=== PATIENT | male | born 1960 | race Caucasian/White ===

== ENCOUNTER 2023-06-30 09:11 | Outpatient (OUT) | payer OTHER, SELFPAY ==
[2023-06-30 10:38] LABS: Estimated Average Glucose 103 mg/dL; Glycohemoglobin A1C 5.2 % (4.5-6.2)
[2023-06-30 10:44] LABS: Alanine Aminotransferase 31 U/L (16-63); Albumin Globulin Ratio 1.1; Alkaline Phosphatase 65 U/L (46-116); Anion Gap 9.2; Aspartate Amino Transferase 18 U/L (15-37); BUN Creatinine Ratio 17.2; Bilirubin Total 0.9 mg/dL (0.2-1.0); Calcium 9.4 mg/dL (8.5-10.1); Carbon Dioxide 31.6 mmol/L (21.0-32.0); Chloride 104 mmol/L (98-107); Chol HDL Ratio 2.8; Cholesterol 128 mg/dL (<=200); Estimated GFR (African America >60 (>=60); Estimated GFR (Non-African Ame >60 (>=60); Globulin 3.7 g/dL; Glucose 107 mg/dL (74-106); HDL Cholesterol 46 mg/dL (40-60); Potassium 3.8 mmol/L (3.5-5.1); Sodium 141 mmol/L (136-145); Total Protein 7.7 g/dL (6.4-8.2); Triglycerides 160 mg/dL (<=150)
[2023-06-30 10:56] LABS: Prostate Specific Antigen Scrn 3.51 ng/mL (<=4.00)
[2023-06-30 11:16] LABS: Basophils Percent Auto 0.6 % (0.2-2.0); Eosinophils Absolute Auto 0.2 10^3/uL (0.0-0.7); Eosinophils Percent Auto 2.4 % (0.9-7.0); Hematocrit 40.9 % (42.0-54.0); Hemoglobin 14.3 g/dL (14.0-18.0); Immature Granulocytes Abs Auto 0.01 10^3/uL (0.00-0.03); Immature Granulocytes Pct Auto 0.1 % (0.0-0.5); Lymphocytes Absolute Auto 2.1 10^3/uL (1.2-3.8); Lymphocytes Percent Auto 31.4 % (20.5-60.0); Mean Corpuscular Hemoglobin 31.7 pg (25.9-34.0); Mean Corpuscular Volume 90.7 fL (80.0-94.0); Mean Platelet Volume 10.4 fL (9.5-13.5); Monocytes Absolute Auto 0.6 10^3/uL (0.3-0.8); Monocytes Percent Auto 8.5 % (1.7-12.0); Neutrophils Absolute Auto 3.9 10^3/uL (1.4-6.5); Platelet Count 201 10^3/uL (150-450); Red Blood Count 4.51 10^6/uL (4.70-6.10); Red Cell Distribution Width 12.2 % (11.0-15.0); White Blood Count 6.8 10^3/uL (4.0-11.0)
== END 2023-06-30 09:12 | disposition home or self-care (01) ==
LOC: LAB 09:14
PROVIDERS: PCP Internal Medicine; Visit Provider Internal Medicine
DX: Z00.00 Encounter for general adult medical examination without abnormal findings (principal); Z12.5 Encounter for screening for malignant neoplasm of prostate
CPT/HCPCS: 36415; 80053; 80061; 83036; 85025; G0103

== ENCOUNTER 2024-06-26 08:38 | Outpatient (OUT) | payer OTHER, SELFPAY ==
--- OUTSIDE RECORDS SUMMARY | 2024-06-26 08:43 | XMS_ITS | CCD ---
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 Role Phone KASEY, DR MOLINA Primary Care Unavailable KASEY, DR MOLINA Admitting Unavailable KASEY, DR MOLINA Attending Unavailable KASEY, DR MOLINA Consulting Unavailable Shraddha, DR Persaud Consulting Unavailable KASEY, DR MOLINA Consulting Unavailable KASEY, DR MOLINA Primary Care Unavailable KASEY, DR MOLINA Admitting Unavailable KASEY, DR MOLINA Attending Unavailable Kasey, Jose Unavailable Allergies Allergy Classification Reported Allergen(s) Allergy Type Date of Onset Reaction(s) Facility (3 sources) Acetaminophen Drug Allergy 4 Unknown, Unknown Reaction [facility] (3 sources) azaTHIOprine Drug Allergy 4 Unknown, Unknown Reaction [facility] Medications Current Medications Medication Drug Class(es) Dates Sig (Normalized) Sig (Original) atorvastatin 10 mg oral tablet (4 sources) HMG-CoA Reductase Inhibitor Start: 12-27-2023 take 10 mg by mouth once daily Atorvastatin Active 10 MG PO Daily December 27, 2023 12:00am Start: 12-30-2022 take 1 tablet by svetlana th every twenty-four hours Atorvastatin Calcium 10 MG 1 tablet Orally Once a day for 30 days Dec, Active hydroCHLOROthiazide 25 mg / lisinopril 20 mg oral tablet (4 sources) Thiazide Diuretic, Angiotensin Converting Enzyme Inhibitor Start: 12-27-2023 take 1 tablet by mouth once daily Lisinopril-Hydrochlorothiazide Active 1 TAB PO Daily December 27, 2023 12:00am Start: 12-30-2022 take 1 tablet by svetlana th every twenty-four hours Lisinopril-hydroCHLOROthiazide 20-25 MG 1 tablet Orally Once a day for 30 days Dec, Active lisinopril 10 mg oral tablet (4 sources) Angiotensin Converting Enzyme Inhibitor Start: 12-27-2023 take 10 mg by mouth once daily Lisinopril Active 10 MG PO Daily December 27, 2023 12:00am Start: 12-30-2022 take 1 tablet by svetlana th every twenty-four hours Lisinopril 10 MG 1 tablet Orally Once a day for 30 days Dec, Active Completed/Discontinued Medications Medication Drug Class(es) Dates Sig (Normalized) Sig (Original) Suprep Bowel Prep Kit 17.5-3.13-1.6 GM/180ML (3 sources) Start: 10-12-2018 take 177 mL by mouth twice daily Suprep Bowel Prep Kit 17.5-3.13-1.6 GM/180ML 177ml bottle at 4pm and 11pm Orally Twice a day for 1 day(s) Oct, Not-Taking Start: 10-12-2018 take 177 mL by mouth twice daily Suprep Bowel Prep Kit 17.5-3.13-1.6 GM/180ML 177ml bottle at 4pm and 11pm Orally Twice a day for 1 day(s) Oct, Active Problems Active Problems Problem Classification Problem Date Documented Date Episodic/Chronic Diabetes mellitus without complication (7 sources) Impaired fasting glycemia; Translations: [Impaired fasting glucose] Episodic Disorders of lipid metabolism (7 sources) Hypercholesterolemia ; Translations: [Pure hypercholesterolemia , unspecified] Chronic Esophageal disorders (5 sources) Gastro-esophageal reflux disease with esophagitis; Translations: [Gastroesophageal reflux disease with esophagitis without hemorrhage] 12-27-2023 Chronic Essential hypertension (7 sources) Essential hypertension; Translations: [Essential (primary) hypertension] Chronic Genitourinary symptoms and ill-defined conditions (5 sources) Delay when starting to pass urine; Translations: [Hesitancy of micturition] Episodic Hyperplasia of prostate (7 sources) Lower urinary tract symptoms due to benign prostatic hypertrophy; Translations: [Benign prostatic hyperplasia with lower urinary tract symptoms] Chronic Nonmalignant breast conditions (7 sources) Hypertrophy of breast; Translations: [Gynecomastia] Onset: 11-30-2021 Episodic Other diseases of veins and lymphatics (4 sources) Peripheral venous insufficiency; Translations: [Venous insufficiency (chronic) (peripheral)] 12-27-2023 Episodic Other diseases of veins and lymphatics (3 sources) Venous insufficiency (chronic) (peripheral); Translations: [Venous (peripheral) insufficiency, unspecified] Episodic Other screening for suspected conditions (not mental disorders or infectious disease) (3 sources) Encounter for screening for malignant neoplasm of prostate; Translations: [Encounter for screening for malignant neoplasm of colon] Onset: 06-29-2022 Episodic Sprains and strains (1 source) Strain of muscle(s) and tendon(s) of the rotator cuff of right shoulder, initial encounter Episodic Past or Other Problems Problem Classification Problem Date Documented Da te Episodic/Chronic Esophageal disorders (2 sources) Esophageal disorders Results Test Name Value Interpretation Reference Range Facility [facility] Pane karl 06-30-2023 Albumin [Mass/Vol] 4.385137 g/dL Normal 3.4-5.0 g/dL [facility] [employer] Other ALP [Catalytic activity/Vol] 65 U/L Normal 46-116 U/L [facility] [employer] Other ALT [Catalytic activity/Vol] 31 U/L Normal 16-63 U/L [facility] Other Anion gap [Moles/Vol] 9.2 mmol/L [facility] Other AST [Catalytic activity/Vol] 18 U/L Normal 15-37 U/L [facility] Other Bilirubin [Mass/Vol] 0.9975972 mg/dL Normal 0.2-1.0 mg/dL [facility] Other Calcium [Mass/Vol] 9.3906777 mg/dL Normal 8.5-10.1 mg/ dL [facility] Other Chloride [Moles/Vol] 104 mmol/L Normal 98-107 mmol/L [facility] Other CO2 [Moles/Vol] 31.71757501 mmol/L Normal 21.0-3 2.0 mmol/L [facility] Other Creatinine [Mass/Vol] 0.24686544 mg/dL Normal 0.70-1.30 mg/dL [facility] Other Glucose [Mass/Vol] 107 mg/dL High 74-106 mg/dL [facility] [employer] Other Potassium [Moles/Vol] 3.06190766 mmol/L Normal 3.5-5.1 mmol/L [facility] [employer] Other Protein [Mass/Vol] 7.835861 g/dL Normal 6.4-8.2 g/dL N [facility] [employer] Other Sodium [Moles/Vol] 141 mmol/L Normal 136-145 mmol/L [facility] [employer] Other Urea nitrogen [Mass/Vol] 17.7999274 mg/dL Normal 7.0-18.0 mg/dL [facility] [employer] Other Urea nitrogen/Creatinine [Mass ratio] 17.2 mg/mg [facility] [employer] Other Comprehensive Metabolic Panel 3.7 g/dL [facility] [employer] Other Comprehensive Metabolic Panel 1.1 [facility] [employer] Other Comprehensive Metabolic Panel see note [facility] [employer] Other Comprehensive Metabolic Panel >60 >=60 [facility] [employer] Other Lipid Panelon 06-30-2023 Cholesterol [Mass/Vol] 128 mg/dL <=200 mg/dL [facility] [employer] Other Cholesterol in HDL [Mass/Vol] 46 mg/dL Normal 40-60 mg/dL [facility] [employer] Other Triglyceride [Mass/Vol] 160 mg/dL High <=150 mg/dL [facility] [employer] Other Lipid Panel 50.0 mg/dL [facility] [employer] Other Lipid Panel 32.0 mg/dL [facility] [employer] Other Lipid Panel 2.8 [facility] [employer] Other PSA SCREENINGon 06-30-2023 PSA SCREENING 3.51 ng/mL <=4.00 ng/mL [facility] [employer] Other CBC AUTO DIFFon 06-24-2022 BASO # 0.1 103/ul Normal 0.0-0.1 [facility] Comment on above: Performed By: #### C BC #### [facility] [address] [address] [address] Julia Gonzalez Basophils/100 WBC (Bld) 0.7 % Normal 0.2-2.0 [facility] Comment on above: Performed By: #### C BC #### [facility] [address] [address] [address] Julia Gonzalez EO # 0.2 103/ul Normal 0.0-0.7 [facility] Comment on above: Performed By: #### C BC #### [facility] [address] [address] [address] Julia Gonzalez Eosinophils/100 WBC (Bld) 2.9 % Normal 0.9-7.0 [facility] Comment on above: Performed By: #### C BC #### [facility] [address] [place] [address] Dr. Julia Gonzalez Erythrocyte distribution width (RBC) [Ratio] 12.6 % Normal 11.0-15.0 [facility] Comment on above: Performed By: #### C BC #### [facility] [address] [place] [address] Dr. Julia Gonzalez Hematocrit (Bld) [Volume fraction] 41.7 % Critically low 42.0-54.0 [facility] Comment on above: Performed By: #### C BC #### [facility] [address] [place] [address] Dr. Julia Gonzalez Hemoglobin (Bld) [Mass/Vol] 14.4 g/dL Normal 14.0-18.0 [facility] Comment on above: Performed By: #### C BC #### [facility] [address] [place] [address] Dr. Julia Gonzalez IG # 0.02 10e3/ul Normal 0.00-0.03 [facility] Comment on above: Performed By: #### C BC #### [facility] [address] [place] [address] Dr. Julia Gonzalez IG % 0.3 % Normal 0.0-0.5 [facility] Comment on above: Performed By: #### C BC #### [facility] [address] [place] [address] Dr. Julia Gonzalez LYMPH # 2.2 103/ul Normal 1.2-3.8 [facility] Comment on above: Performed By: #### C BC #### [facility] [address] [place] [address] Dr. Julia Gonzalez Lymphocytes/100 WBC (Bld) 31.2 % Normal 20.5-60.0 [facility] Comment on above: Performed By: #### C BC #### [facility] [address] [place] [address] Dr. Julia Gonzalez MANUAL DIFF REQ NO Normal [facility] Comment on above: Performed By: #### C BC #### [facility] [address] [place] [address] Dr. Julia Gonzalez MCH (RBC) [Entitic mass] 31.0 pg Normal 25.9-34.0 [facility] Comment on above: Performed By: #### C BC #### [facility] [address] [place] [address] Dr. Julia Gonzalez MCHC (RBC) [Mass/Vol] 34.5 g/dL Normal 29.9-35.2 [facility] Comment on above: Performed By: #### C BC #### [facility] [address] [place] [address] Dr. Julia Gonzalez MCV (RBC) [Entitic vol] 89.7 fL Normal 80.0-94.0 [facility] Comment on above: Performed By: #### C BC #### [facility] [address] [place] [address] Dr. Julia Gonzalez MONO # 0.6 103/ul Normal 0.3-0.8 [facility] Comment on above: Performed By: #### C BC #### [facility] [address] [place] [address] Dr. Julia Gonzalez Monocytes/100 WBC (Bld) 9.0 % Normal 1.7-12.0 [facility] Comment on above: Performed By: #### C BC #### [facility] [address] [place] [address] Dr. Julia Gonzalez NEUT # 3.9 103/ul Normal 1.4-6.5 [facility] Comment on above: Performed By: #### C BC #### [facility] [address] [address] [address] Julia Gonzalez Neutrophils/100 WBC (Bld) 55.9 % Normal 43.0-75.0 [facility] Comment on above: Performed By: #### C BC #### [facility] [address] [place] [address] Dr. Julia Gonzalez Platelet mean volume (Bld) [Entitic vol] 9.6 fL Normal 9.5-13.5 [facility] Comment on above: Performed By: #### C BC #### [facility] [address] [place] [address] Dr. Julia Gonzalez PLT 198 103/ul Normal 150-450 [facility] Comment on above: Performed By: #### C BC #### [facility] [address] [place] [address] Dr. Julia Gonzalez RBC 4.65 106/ul Critically low 4.70-6.10 [facility] Comment on above: Performed By: #### C BC #### [facility] [address] [place] [address] Dr. Julia Gonzalez WBC 6.9 103/ul Normal 4.0-11.0 [facility] Comment on above: Performed By: #### C BC #### [facility] [address] [place] [address] Dr. Julia Gonzalez LIPID PROFILEon 06-24-2022 CHOL-HDL RATIO NORM SEE BELOW Normal [facility] Comment on above: Result Comment: 3.3 - 4.4 LOW RISK 4.4 - 7.1 AVERAGE RISK 7.1 - 11.0 MODERATE RISK >11.0 HIGH RISK Performed By: #### C MP, LIPID #### [facility] [address] [place] [address] Dr. Julia Gonzalez Cholesterol [Mass/Vol] 138 mg/dL Normal <=200 [facility] Comment on above: Performed By: #### C MP, LIPID #### [facility] [address] [address] [address] Julia Gonzalez Cholesterol in HDL [Mass/Vol] 48 mg/dL Normal 40-60 [facility] Comment on above: Performed By: #### C MP, LIPID #### [facility] [address] [address] [address] Julia Gonzalez Cholesterol in LDL [Mass/Vol] 66.6 mg/dL Normal [facility] Comment on above: Performed By: #### C MP, LIPID #### [facility] [address] [address] [address] Julia Gonzalez Cholesterol.total/C holesterol in HDL [Mass ratio] 2.9 {ratio} Normal [facility] Comment on above: Performed By: #### C MP, LIPID #### [facility] [address] [place] [address] Dr. Julia Gonzalez HDL NORMAL > or = 60 mg/dl - LOW CARDIOVASCULAR RISK <40 mg/dl - HIGH CARDIOVASCULAR RISK Normal [facility] Comment on above: Performed By: #### C MP, LIPID #### [facility] [address] [address] [address] Julia Gonzalez LDL CALC NORMAL SEE BELOW Normal [facility] Comment on above: Result Comment: <100 mg/dl OPTIMAL 100 - 129 mg/dl NEAR OR ABOVE OPTIMAL 130 - 159 mg/dl BORDERLINE HIGH 160 - 189 mg/dl HIGH >190 mg/dl VERY HIGH Performed By: #### C MP, LIPID #### [facility] [address] [address] [address] Julia Gonzalez Triglyceride [Mass/Vol] 117 mg/dL Normal <=150 [facility] Comment on above: Performed By: #### C MP, LIPID #### [facility] [address] [place] [address] Dr. Julia Gonzalez VLDL CALC 23.4 mg/dL Normal [facility] Comment on above: Performed By: #### C MP, LIPID #### [facility] [address] [address] [address] Julia Gonzalez PROF 14(COMP METB)on 10-21-2 022 Albumin [Mass/Vol] 4.0 g/dL Normal 3.4-5.0 [facility] Comment on above: Performed By: #### C MP, LIPID #### [facility] [address] [place] [address] Dr. Julia Gonzalez Albumin/Globulin [Mass ratio] 1.1 {ratio} Normal [facility] Comment on above: Performed By: #### C MP, LIPID #### [facility] [address] [place] [address] Dr. Julia Gonzalez ALP [Catalytic activity/Vol] 64 U/L Normal 46-116 [facility] Comment on above: Performed By: #### C MP, LIPID #### [facility] [address] [place] [address] Dr. Julia Gonzalez ALT [Catalytic activity/Vol] 29 U/L Normal 16-63 [facility] Comment on above: Performed By: #### C MP, LIPID #### [facility] [address] [place] [address] Dr. Julia Gonzalez Anion gap [Moles/Vol] 9.1 mmol/L Normal [facility] Comment on above: Performed By: #### C MP, LIPID #### [facility] [address] [place] [address] Dr. Julia Gonzalez AST [Catalytic activity/Vol] 19 U/L Normal 15-37 [facility] Comment on above: Performed By: #### C MP, LIPID #### [facility] [address] [place] [address] Dr. Julia Gonzalez Bilirubin [Mass/Vol] 0.6 mg/dL Normal 0.2-1.0 [facility] Comment on above: Performed By: #### C MP, LIPID #### [facility] [address] [place] [address] Dr. Julia Gonzalez Calcium [Mass/Vol] 9.4 mg/dL Normal 8.5-10.1 [facility] Comment on above: Performed By: #### C MP, LIPID #### [facility] [address] [place] [address] Dr. Julia Gonzalez Chloride [Moles/Vol] 105 mmol/L Normal 98-107 [facility] Comment on above: Performed By: #### C MP, LIPID #### [facility] [address] [place] [address] Dr. Julia Gonzalez CO2 [Moles/Vol] 30.2 mmol/L Normal 21.0-32.[address] [facility] Comment on above: Performed By: #### C MP, LIPID #### [facility] [address] [place] [address] Dr. uJlia Gonzalez Creatinine [Mass/Vol] 0.91 mg/dL Normal 0.70-1.30 [facility] Comment on above: Performed By: #### C MP, LIPID #### [facility] [address] [place] [address] Dr. Julia Gonzalez EGFR-AF COMORAN >60 Normal >=[address] [facility] Comment on above: Performed By: #### C MP, LIPID #### [facility] [address] [place] [address] Dr. Julia Gonzalez EGFR-NON AF COMORAN >60 Normal >=60 [facility] Comment on above: Performed By: #### C MP, LIPID #### [facility] [address] [place] [address] Dr. Julia Gonzalez Globulin (S) [Mass/Vol] 3.7 g/dL Normal [facility] Comment on above: Performed By: #### C MP, LIPID #### [facility] [address] [place] [address] Dr. Julia Gonzalez Glucose [Mass/Vol] 113 mg/dL Critically high 74-106 [facility] Comment on above: Performed By: #### C MP, LIPID #### [facility] [address] [place] [address] Dr. Julia Gonzalez Potassium [Moles/Vol] 4.3 mmol/L Normal 3.5-5.1 [facility] Comment on above: Performed By: #### C MP, LIPID #### [facility] [address] [place] [address] Dr. Julia Gonzalez Protein [Mass/Vol] 7.7 g/dL Normal 6.4-8.2 [facility] Comment on above: Performed By: #### C MP, LIPID #### [facility] [address] [address] [address] Julia Gonzalez Sodium [Moles/Vol] 140 mmol/L Normal 136-145 [facility] Comment on above: Performed By: #### C MP, LIPID #### [facility] [address] [address] [address] Julia Gonzalez Urea nitrogen [Mass/Vol] 20.0 mg/dL Critically high 7.0-18.0 [facility] Comment on above: Performed By: #### C MP, LIPID #### [facility] [address] [address] [address] Julia Gonzalez Urea nitrogen/Creatinine [Mass ratio] 22.0 mg/mg Normal [facility] Comment on above: Performed By: #### C MP, LIPID #### [facility] [address] [place] [address] Dr. Julia Gonzalez MG MAMM DIAGNOSTIC 3D SONIYA CA Don 11-30-2021 MG MAMM DIAGNOSTIC 3D SONIYA CAD Patient: GWEN MCBRIDE Exam Date: 11/30/2021 : 1960 Gender:M Ordering : DR JOSE PARKS D.O. Admission #: [id number] Family : Order #: [id number] CLICK HERE TO VIEW EXAM RADIOLOGY REPORT PROCEDURE: MAMMOGRAM DIAGNOSTIC 3D BILATERAL CAD, 11/30/2021, 14:04 ULTRASOUND BREAST LEFT LIMITED, 11/30/2021, 14:42 COMPARISON: None. INDICATIONS: Hypertrophy of breast Calculator Name NCI Breast Cancer Risk Assessment Tool 5 Year Breast Cancer Risk Not Applicable. Lifetime Breast Cancer Risk Not Applicable. Personal Breast Cancer No Personal Ovarian Cancer No Treatments None Family Cancers Brother with throat cancer at age 67; Brother with neck cancer at age 67. LOCATION: [facility] BREAST COMPOSITION: Almost entirely fatty. FINDINGS: DIAGNOSTIC CATEGORY 2--BENIGN FINDING: RIGHT BREAST: No significant suspicious finding. LEFT BREAST: Small amount of strandy opacities within the subareolar region suggestive of gynecomastia. No appreciable mass. Ultrasound evaluation demonstrates findings consistent with unilateral gynecomastia. RECOMMENDATIONS: CLINICAL EVALUATION. PLEASE NOTE: A NORMAL MAMMOGRAM DOES NOT EXCLUDE THE POSSIBILITY OF BREAST CANCER. A CLINICALLY SUSPICIOUS PALPABLE LUMP SHOULD BE BIOPSIED. Dictated by: Hung Llanes M.D. on 11/30/2021 at 15:29 Approved by: Hung Llanes M.D. on 11/30/2021 at 15:34 Normal [facility] US BREAST LEFT LIMITEDon US BREAST LEFT LIMITED Patient: GWEN MCBRIDE Exam Date: 11/30/2021 : 1960 Gender:M Ordering : DR JOSE PARKS D.O. Admission #: [id number] Family : Order #: [id number] CLICK HERE TO VIEW EXAM RADIOLOGY REPORT PROCEDURE: MAMMOGRAM DIAGNOSTIC 3D BILATERAL CAD, 11/30/2021, 14:04 ULTRASOUND BREAST LEFT LIMITED, 11/30/2021, 14:42 COMPARISON: None. INDICATIONS: Hypertrophy of breast Calculator Name NCI Breast Cancer Risk Assessment Tool 5 Year Breast Cancer Risk Not Applicable. Lifetime Breast Cancer Risk Not Applicable. Personal Breast Cancer No Personal Ovarian Cancer No Treatments None Family Cancers Brother with throat cancer at age 67; Brother with neck cancer at age 67. LOCATION: [facility] BREAST COMPOSITION: Almost entirely fatty. FINDINGS: DIAGNOSTIC CATEGORY 2--BENIGN FINDING: RIGHT BREAST: No significant suspicious finding. LEFT BREAST: Small amount of strandy opacities within the subareolar region suggestive of gynecomastia. No appreciable mass. Ultrasound evaluation demonstrates findings consistent with unilateral gynecomastia. RECOMMENDATIONS: CLINICAL EVALUATION. PLEASE NOTE: A NORMAL MAMMOGRAM DOES NOT EXCLUDE THE POSSIBILITY OF BREAST CANCER. A CLINICALLY SUSPICIOUS PALPABLE LUMP SHOULD BE BIOPSIED. Dictated by: Hung Llanes M.D. on 11/30/2021 at 15:29 Approved by: Hung Llanes M.D. on 11/30/2021 at 15:34 Normal [facility] Vital Signs Date Time Vital Sign Value Performing Clinician Facility 12-29-2023 09:12-0400 Body height 170.[address] [facility] 12-29-2023 09:12-0400 Body mass index (BMI) [Ratio] 37.1 kg/m2 [facility] 12-29-2023 09:120400 Body weight 107.[address] [facility] 12-29-2023 09:12-0400 Diastolic blood pressure 88 mm[Hg] [facility] 12-29-2023 09:12-0400 Heart rate 78 /min [facility] 12-29-2023 09:12-0400 Systolic blood pressure 130 mm[Hg] [facility] 06-30-2023 08:30-0400 Body height 170.18 cm Jose Ball Other [facility] [employer] Other 06-30-2023 08:30-0400 Body mass index (BMI) [Ratio] 36.68 kg/m2 Jose Ball Other [facility] Other 06-30-2023 08:30-0400 Body weight 106.23 kg Jose Ball Other [facility] Other 06-30-2023 08:30-0400 Diastolic blood pressure 93 mm[Hg] Jose Ball Other [facility] Other 06-30-2023 08:30-0400 Respiratory rate 12 /min Jose Ball Other [employer] Other 06-30-2023 08:30-0400 Systolic blood pressure 166 mm[Hg] Jose Ball Other [facility] Other 12-30-2022 12:00-0400 Body height 170.18 cm Jose Ball Other [facility] Other 12-30-2022 12:00-0400 Body mass index (BMI) [Ratio] 37.02 kg/m2 Jose Ball Other [facility] Other 12-30-2022 12:00-0400 Body weight 107.23 kg Jose Ball Other [facility] Other 04-28-2023 12:00-0400 Diastolic blood pressure 96 mm[Hg] Jose Parks Other [facility] Other 12-30-2022 12:00-0400 Respiratory rate 12 /min Jose Parks Other [facility] Other 12-30-2022 12:00-0400 Systolic blood pressure 141 mm[Hg] Jose Parks Other [employer] Other Encounters Encounter Date Encounter Type Care Provider Facility Start: 12-29-2023 End: 12-29-2023 ambulatory [facility] Work Phone: Start: 12-29-2023 End: 12-29-2023 Patient encounter procedure [facility] Work Phone: Start: 06-30-2023 End: 06-30-2023 ambulatory Jose Parks Other [employer] Other Start: 06-30-2023 Encounter for genera l adult medical examination without abnormal findings Jose Parks [facility] Start: 06-30-2023 Periodic preventive med est patient 40-64yrs Jose Parks [facility] Start: 06-30-2023 Telephone encounter Jose Parks [facility] Start: 12-30-2022 End: 12-30-2022 ambulatory Jose Parks Other [email or web address] Other Start: 12-30-2022 Office outpatient vi sit 25 minutes Jose Parks [facility] Start: 06-29-2022 Encounter for genera l adult medical examination without abnormal findings DR JOSE PARKS [facility] Start: 06-24-2022 End: 06-25-[address] JOSE PARKS Facility:[facility] Start: 06-24-2022 End: 06-25-2022 Encounter for general adult medical examination without abnormal findings DR JOSE PARKS Facility:[facility] Start: 11-30-2021 End: 12-01-[address] JOSE PARKS Facility:[facility] Procedures Date Procedure Procedure Detail Performing Clinician Start: 10-21-[address] KENNA PARKS Comment on above: Performed By: #### P [facility] #### [facility] [address] [address] [address] Julia Gonzalez Immunizations Immunization Date Immunization Notes Care Provider Fa cili 06-30-2023 influenza, injectabl e, quadrivalent, preservative free Jose Parks Other [facility] 06-29-2022 influenza virus vaccine, split virus (incl. purified surface antigen) Jose Parks Other [facility] [employer] Other 06-29-2022 influenza virus vaccine, unspecified formulation [facility] 12-24-2021 COVID-19 Vaccine Moderna - Documentation Purposes Only Jose Parks Other [facility] 07-09-2021 COVID-19 Vaccine Moderna - Documentation Purposes Only Jose Parks Other [facility] 06-28-2021 influenza virus vaccine, split virus (incl. purified surface antigen) Jose Parks Other [facility] [employer] Other 06-28-2021 influenza virus vaccine, unspecified formulation [facility] 12-17-2020 COVID-19 Vaccine Moderna - Documentation Purposes Only Jose Parks Other [facility] 11-17-2020 COVID-19 Vaccine Moderna - Documentation Purposes Only Jose Parks Other [facility] 05-23-2017 tetanus and diphther ia toxoids, adsorbed, preservative free, for adult use (5 Lf of tetanus toxoid and 2 Lf of diphtheria toxoid) Jose Parks Other [facility] 06-03-2016 tetanus and diphther ia toxoids, adsorbed, preservative free, for adult use (5 Lf of tetanus toxoid and 2 Lf of diphtheria toxoid) Jose Parks Other [facility] Payers Date Payer Category Payer Unknown [id number] 1960 Unknown [id number] 1959 Unknown [id number] Unknown [id number] Social History Date Type Detail Facility Sex Assigned At [facility] [employer] Other Start: 1960 Sex Assigned At Male [facility] Evaluation note 06-30-2023 Note Date & Type Note Facility 06-30-2023 Evaluation note Encounter Date Diagnosis Assessment Notes Jun, Wellness examination (ICD-10 - Z00.00) Healthy diet and exercise. Reviewed age-appropriate preventive testing recommended. Jun, Primary hypertension (ICD-10 - I10) This patient is instructed to consume a healthy, low-fat, low-salt diet. They are also encouraged to continue exercise to achieve/maintain a normal BMI. Patient is instructed on home BP measurements: - rest for 5 minutes w/o talking- positioned w/ feet on floor and arm supported- average best 2/3 readings w/ goal < 135/85 Call w/ update Jun, Elevated cholesterol (ICD-10 - E78.00) Instructed on diet and exercise with continued statin therapy.Discussed the beneficial effects of lowering cholesterol in reducing the risk for cerebrovascular and cardiovascular disease. Jun, IFG (impaired fasting glucose) (ICD-10 - R73.01) Healthy diet and exercise Check A1C yearly Jun, Gastroesophageal reflux disease with esophagitis without hemorrhage (ICD-10 - K21.00) Diet instructions: Smaller portions, avoid eating and laying flat, avoid eating or drinking prior to bedtime. Weight loss. Jun, Benign prostatic hyperplasia with lower urinary tract symptoms (ICD-10 - N40.1) Symptoms tolerable Jun, Hesitancy of micturition (ICD-10 - R39.11) Jun, Chronic venous insufficiency (ICD-10 - I87.2) Avoid salt and elevate lower extremities, support stockings, inspect legs and feet daily for blisters and ulcerations. Jun, Screening PSA (prostate specific antigen) (ICD-10 - Z12.5) Jun, Colon cancer screening (ICD-10 - Z12.11) [email or web address] Other Evaluation note 12-30-2022 Note Date & Type Note Facility 12-30-2022 Evaluation note Encounter Date Diagnosis Assessment Notes Dec, Primary hypertension (ICD-10 - I10) This patient is instructed to consume a healthy, low-fat, low-salt diet. They are also encouraged to continue exercise to achieve/maintain a normal BMI. Dec, Elevated cholesterol (ICD-10 - E78.00) Instructed on diet and exercise with continued statin therapy.Discussed the beneficial effects of lowering cholesterol in reducing the risk for cerebrovascular and cardiovascular disease. Dec, IFG (impaired fasting glucose) (ICD-10 - R73.01) Healthy diet, exercise and weight loss This patient is following a comprehensive diabetic treatment plan. They are checking their feet daily for calluses and nonhealing ulcers. They are being seen for yearly dilated eye examinations. Goals: SBP less than 130, LDL less than 100, FBS less than 140, AC and A1C less than 7%. They are checking their BS daily, will which are reviewed at the office visit. Dec, Benign prostatic hyperplasia with lower urinary tract symptoms (ICD-10 - N40.1) Discussed normal symptoms related to BPH - weak stream, hesitancy and nocturia - he denies hematuria or dysuria Offered treatment but he declines PSA and SONIDO in Dec, Gastroesophageal reflux disease with esophagitis without hemorrhage (ICD-10 - K21.00) Diet instructions: Smaller portions, avoid eating and laying flat, avoid eating or drinking prior to bedtime. Weight loss. Dec, Strain of right rotator cuff capsule, initial encounter (ICD-10 - S46.011A) ROM exercises, ice/heat and Voltaren Gel Tylenol as needed. Discussed subacromial injection, PT and Orthopedic referrel: which I don't believe is needed at this time. Dec, Hesitancy of micturition (ICD-10 - R39.11) Dec, Chronic venous insufficiency (ICD-10 - I87.2) Avoid salt and elevate lower extremities, support stockings, inspect legs and feet daily for blisters and ulcerations. [email or web address] Other Evaluation note Note Date & Type Note Facility Evaluation note No Information [facility] [employer] Other Evaluation note Note Date & Type Note Facility Evaluation note Diagnosis Onset Date Benign prostatic hyperplasia with lower urinary tract symptoms acute Chronic venous insufficiency acute Elevated cholesterol acute Gastroesophageal reflux dise ase with esophagitis without hemorrhage acute IFG (impaired fasting glucose) acute Primary hypertension acute [facility] Work Phone: History general Narrative - Reported Note Date & Type Note Facility History general Narrative - Reported Type Medical History Primary hypertension Medical History Elevated cholesterol Medical History Gastroesophageal ref lux disease with esophagitis without hemorrhage Medical History Chronic venous insufficiency Medical History Benign prostatic hyp erplasia with lower urinary tract symptoms Medical History IFG (impaired fasting glucose) Medical History Gynecomastia [email or web address] Other History general Narrative - Reported Note Date & Type Note Facility History general Narrative - Reported Type Medical History Primary hypertension Medical History Elevated cholesterol Medical History Gastroesophageal ref lux disease with esophagitis without hemorrhage Medical History Chronic venous insufficiency Medical History Benign prostatic hyp erplasia with lower urinary tract symptoms Medical History IFG (impaired fasting glucose) Medical History Gynecomastia Surgical History BOWEL RESECTION Surgical History LUMBAR SURGERY Surgical History COLONOSCOPY Surgical History CARDIAC CATH, LEFT HEART Surgical History INSERTION, ICD, [employer] Hospitalization History SEE SURGICAL HX [email or web address] Other Summary Purpose Family History Relationship Condition Age at Onset Recorded Date/T judy brother Myocardial infarction Unknown father Unknown Heart disease Unknown Not Specified Hypertension Unknown Unknown Advance Directives Advance Directive Response Recorded Date/ Time Advance Directives No October 02, 2023 1:34pm Chief Complaint and Reason for Visit Chief Complaint 6 month follow up Reason for Visit Benign prostatic hyp erplasia with lower urinary tract symptoms Chronic venous insufficiency Elevated cholesterol Gastroesophageal reflux disease with esophagitis without hemorrhage IFG (impaired fasting glucose) Primary hypertension Additional Source Comments (unrecognized sect ion and content) No Status Records Found INFORMATION SOURCE (unrecogn ized section and content) DATE CREATED AUTHOR 06/30/2022 [employer] [facility] REASON FOR VISIT (unrecogniz ed section and content) 6 MONTH FOLLOW UPWellnessAshley pineda Care Teams (unrecognized sec tion and content) Team Status: Active Member Role Status Dates Jose Parks DO Primary Care Provider Active Team Status: Inactive Member Role Status Dates Jose Parks DO Primary Care Provide r, Attending Provider Active Start: December 29, 2023 End: December 29, 2023 Goals (unrecognized section and content) Goals may be documented in a n alternate section FOR RECORDS PERTAINING TO PATIENTS WHO ARE OR HAVE BEEN ENROLLED IN A CHEMICAL DEPENDENCY/SUBSTANCEABUSE PROGRAM, SOME INFORMATION MAY BE OMITTED. This clinical summary was aggregated from multiple sources. Caution should be exercised in using it in the provision of clinical care. This summary normalizes information from multiple sources, and as a consequence, information in this document may materially change the coding, format and clinical context of patient data. In addition, data may be omitted in some cases. CLINICAL DECISIONS SHOULD BE BASED ON THE PRIMARY CLINICAL RECORDS. [employer] [facility]. provides no warranty or guarantee of the accuracy or completeness of information in this document.
[2024-06-26 08:54] LABS: Basophils Percent Auto 0.6 % (0.2-2.0); Eosinophils Absolute Auto 0.2 10^3/uL (0.0-0.7); Eosinophils Percent Auto 2.8 % (0.9-7.0); Hematocrit 42.4 % (42.0-54.0); Immature Granulocytes Abs Auto 0.01 10^3/uL (0.00-0.03); Immature Granulocytes Pct Auto 0.1 % (0.0-0.5); Lymphocytes Absolute Auto 1.9 10^3/uL (1.2-3.8); Lymphocytes Percent Auto 28.3 % (20.5-60.0); Mean Corpuscular HGB Conc 35.4 g/dL (29.9-35.2); Mean Corpuscular Hemoglobin 31.6 pg (25.9-34.0); Mean Corpuscular Volume 89.5 fL (80.0-94.0); Mean Platelet Volume 9.9 fL (9.5-13.5); Monocytes Absolute Auto 0.6 10^3/uL (0.3-0.8); Monocytes Percent Auto 8.4 % (1.7-12.0); Neutrophils Percent Auto 59.8 % (43.0-75.0); Platelet Count 194 10^3/uL (150-450); Red Blood Count 4.74 10^6/uL (4.70-6.10); Red Cell Distribution Width 12.1 % (11.0-15.0); White Blood Count 6.8 10^3/uL (4.0-11.0)
[2024-06-26 09:08] LABS: Estimated Average Glucose 100 mg/dL; Glycohemoglobin A1C 5.1 % (4.5-6.2)
[2024-06-26 09:56] LABS: Alanine Aminotransferase 37 U/L (16-63); Albumin Globulin Ratio 1.1; Albumin Level 3.9 g/dL (3.4-5.0); Alkaline Phosphatase 64 U/L (46-116); Anion Gap 11.8; Aspartate Amino Transferase 18 U/L (15-37); BUN Creatinine Ratio 16.7; Bilirubin Total 0.9 mg/dL (0.2-1.0); Calcium 9.7 mg/dL (8.5-10.1); Chloride 106 mmol/L (98-107); Cholesterol 146 mg/dL (<=200); Estimated GFR (African America >60 (>=60 mL/min/1.73m^2); Estimated GFR (Non-African Ame >60 (>=60 mL/min/1.73m^2); Globulin 3.6 g/dL; Glucose 104 mg/dL (74-106); HDL Cholesterol 49 mg/dL (40-60); Potassium 3.8 mmol/L (3.5-5.1); Sodium 142 mmol/L (136-145); Total Protein 7.5 g/dL (6.4-8.2); Triglycerides 186 mg/dL (<=150); VLDL CHOLESTEROL 37.2 mg/dL
[2024-06-26 10:22] LABS: Prostate Specific Antigen Scrn 4.72 ng/mL (<=4.00)
== END 2024-06-26 08:39 | disposition home or self-care (01) ==
LOC: LAB 08:39
PROVIDERS: PCP Internal Medicine; Visit Provider Internal Medicine
DX: E78.00 Pure hypercholesterolemia, unspecified (principal); R73.01 Impaired fasting glucose; I10 Essential (primary) hypertension; Z12.5 Encounter for screening for malignant neoplasm of prostate
CPT/HCPCS: 36415; 80053; 80061; 83036; 85025; G0103

== ENCOUNTER 2024-07-29 10:13 | Outpatient (OUT) | payer OTHER, SELFPAY ==
--- OUTSIDE RECORDS SUMMARY | 2024-07-29 10:36 | XMS_ITS | CCD ---
Author Organization [facility] Care Team Providers Care Distribution Sales Representative Name Role Phone SHAY, DR MOLINA Primary Care Unavailable SHAY, DR MOLINA Admitting Unavailable SHAY, DR MOLINA Attending Unavailable SHAY, DR MOLINA Consulting Unavailable Zimarilee, DR Persaud Consulting Unavailable SHAY, DR MOLINA Consulting Unavailable SHAY, DR MOLINA Primary Care Unavailable SHAY, DR MOLINA Admitting Unavailable SHAY, DR MOLINA Attending Unavailable Shay, Jose Unavailable Allergies Allergy Classification Reported Allergen(s) Allergy Type Date of Onset Reaction(s) Facility (4 sources) Acetaminophen Drug Allergy 4 Unknown, Unknown Reaction [facility] (4 sources) azaTHIOprine Drug Allergy 4 Unknown, Unknown Reaction [facility] Medications Current Medications Medication Drug Class(es) Dates Sig (Normalized) Sig (Original) atorvastatin (6 sources) HMG-CoA Reductase Inhibitor Start: 05-31-2024 take 1 tablet by mouth once daily in the evening Atorvastatin Active 0 .ROUTE .COMPLEX May 31, 2024 1:01pm TAKE 1 TABLET BY MOUTH DAILY IN THE EVENING Start: 12-27-2023 End: 05-31-2024 take 10 mg by mouth once daily Atorvastatin Discontinu ed 10 MG PO Daily December 27, 2023 12:00am May 31, 2024 1:02pm Start: 12-30-2022 take 1 tablet by svetlana th every twenty-four hours Atorvastatin Calcium 10 MG 1 tablet Orally Once a day for 30 days Dec, Active hydroCHLOROthiazide 25 mg / lisinopril 20 mg oral tablet (6 sources) Thiazide Diuretic, Angiotensin Converting Enzyme Inhibitor Start: 05-31-2024 take 1 tablet by mouth once daily Lisinopril-Hydrochlorothiazide Active 0 .ROUTE .COMPLEX May 31, 2024 1:01pm TAKE 1 TABLET BY MOUTH DAILY Start: 12-27-2023 End: 05-31-2024 take 1 tablet by mouth once daily Lisinopril-Hydrochlorothiazide Discontin ued 1 TAB PO Daily December 27, 2023 12:00am May 31, 2024 1:02pm Start: 12-30-2022 take 1 tablet by svetlana th every twenty-four hours Lisinopril-hydroCHLOROthiazide 20-25 MG 1 tablet Orally Once a day for 30 days Dec, Active levoFLOXacin 500 mg oral tablet (2 sources) Quinolone Antimicrobial Start: 06-26-2024 End: 06-28-2024 take 500 mg by mouth once daily Levofloxacin Active 500 MG PO Daily June 28, 2024 4:19pm lisinopril 10 mg oral tablet (8 sources) Angiotensin Converting Enzyme Inhibitor Start: 06-24-2024 take 10 mg by mouth once daily Lisinopril Active 10 MG PO Daily June 24, 2024 10:45am Start: 05-31-2024 End: 06-24-2024 take 1 tablet by mouth once daily Lisinopril Discontinued 0 .ROUTE .COMPLEX June 05, 2024 4:34pm June 24, 2024 10:45am TAKE 1 TABLET BY MOUTH DAILY Start: 12-27-2023 End: 05-31-2024 take 10 mg by mouth once daily Lisinopril Discontinued 10 MG PO Daily December 27, 2023 12:00am May 31, 2024 1:02pm Start: 12-30-2022 take 1 tablet by svetlana [...] Documented Date Episodic/Chronic Diabetes mellitus without complication (9 sources) Impaired fasting glycemia; Translations: [Impaired fasting glucose] Episodic Disorders of lipid metabolism (9 sources) Hypercholesterolemia ; Translations: [Pure hypercholesterolemia , unspecified] Chronic Esophageal disorders (7 sources) Gastro-esophageal reflux disease with esophagitis; Translations: [Gastroesophageal reflux disease with esophagitis without hemorrhage] 12-27-2023 Chronic Essential hypertension (9 sources) Essential hypertension; Translations: [Essential (primary) hypertension] Chronic Genitourinary symptoms and ill-defined conditions (5 sources) Delay when starting to pass urine; Translations: [Hesitancy of micturition] Episodic Hyperplasia of prostate (9 sources) Lower urinary tract symptoms due to benign prostatic hypertrophy; Translations: [Benign prostatic hyperplasia with lower urinary tract symptoms] Chronic Nonmalignant breast conditions (7 sources) Hypertrophy of breast; Translations: [Gynecomastia] Onset: 11-30-2021 Episodic Other diseases of veins and lymphatics (5 sources) Peripheral venous insufficiency; Translations: [Venous insufficiency (chronic) (peripheral)] 12-27-2023 Episodic Other diseases of veins and lymphatics (4 sources) Venous insufficiency (chronic) (peripheral); Translations: [Venous (peripheral) insufficiency, unspecified] Episodic Other screening for suspected conditions (not mental disorders or infectious disease) (5 sources) Encounter for screening for malignant neoplasm [...] Test Name Value Interpretation Reference Range Facility Basophils Auto (Bld) [#/Vol] on 06-26-2024 Basophils (Bld) [#/Vol] 0.0 10 3/uL 0.0-0.1 [facility] Basophils/100 WBC Auto (Bld) on 06-26-2024 Basophils/100 WBC (Bld) 0.6 % 0.2-2.0 [facility] Cholesterol in LDL Calc [Mas s/Vol]on 06-26-2024 Cholesterol in LDL [Mass/Vol] 60.0 mg/dL [facility] Comment on above: <100 mg/dl [id number] 0-129 mg/dl NEAR OR ABOVE [id number] mg/dl BORDERLINE [id number] mg/dl HIGH>190 mg/dl VERY HIGH Cholesterol in VLDL Calc [Ma ss/Vol]on 06-26-2024 Cholesterol in VLDL [Mass/Vol] 37.2 mg/dL [facility] Eosinophils/100 WBC Auto (Bl d)on 06-26-2024 Eosinophils/100 WBC (Bld) 2.8 % 0.9-7.0 [facility] Erythrocyte distribution wid th Auto (RBC) [Ratio]on 06-26-2024 Erythrocyte distribution width (RBC) [Ratio] 12.1 % 11.0-15.0 [facility] Estimated glomerular filtrat ion rate (GFR) non- Americanon 06-26-2024 GFR/1.73 sq M.predicted among non-blacks MDRD (S/P/Bld) [Vol rate/Area] mL/min/{1.73_m2} >=60 mL/min/1.73m 2 [facility] Globulin Calc (S) [Mass/Vol] on 06-26-2024 Globulin (S) [Mass/Vol] 3.6 g/dL [facility] Glucose mean value [Mass/vol ume] in Blood Estimated from glycated hemoglobinon 06-26-2024 Average glucose Estimated from glycated hemoglobin (Bld) [Mass/Vol] 100 mg/dL [facility] Hematocrit Auto (Bld) [Volum e fraction]on 06-26-2024 Hematocrit (Bld) [Volume fraction] 42.4 % 42.0-54.0 [facility] Hemoglobin [Mass/volume] in Bloodon 06-26-2024 Hemoglobin (Bld) [Mass/Vol] 15.0 g/dL 14.0-18.0 [facility] Laboratory - Chemistry and C hemistry - challengeon 06-26-2024 Albumin [Mass/Vol] 3.9 g/dL 3.4-5.0 [facility] ALP [Catalytic activity/Vol] 64 U/L 46-116 [facility] ALT [Catalytic activity/Vol] 37 U/L 16-63 [facility] AST [Catalytic activity/Vol] 18 U/L 15-37 [facility] Bilirubin [Mass/Vol] 0.9 mg/dL 0.2-1.0 [facility] Calcium [Mass/Vol] 9.7 mg/dL 8.5-10.1 [facility] Chloride [Moles/Vol] 106 mmol/L 98-107 [facility] Cholesterol [Mass/Vol] 146 mg/dL <=200 [facility] Cholesterol in HDL [Mass/Vol] 49 mg/dL 40-60 [facility] Comment on above: > or =60 mg/dl - LOW CARDIOVASCULAR RISK<40 mg/dl - HIGH CARDIOVASCULAR RISK CO2 [Moles/Vol] 28.0 mmol/L 21.0-32.0 [facility] Creatinine [Mass/Vol] 1.02 mg/dL 0.70-1.30 [facility] GFR/1.73 sq M.predicted MDRD (S/P/Bld) [Vol rate/Area] mL/min/{1.73_m2} >=60 mL/min/1.73m 2 [facility] Glucose [Mass/Vol] 104 mg/dL 74-106 [facility] Potassium [Moles/Vol] 3.8 mmol/L 3.5-5.1 [facility] Protein [Mass/Vol] 7.5 g/dL 6.4-8.2 [facility] Sodium [Moles/Vol] 142 mmol/L 136-145 [facility] Triglyceride [Mass/Vol] 186 mg/dL High <=150 [facility] Urea nitrogen [Mass/Vol] 17.0 mg/dL 7.0-18.0 [facility] Urea nitrogen/Creatinine [Mass ratio] 16.7 mg/mg [facility] Laboratory - Hematology and Cell countson 06-26-2024 HbA1c (Bld) [Mass fraction] 5.1 % 4.5-6.2 [facility] Comment on above: ADA RECOMMENDED LIMI T 4.0 - 6.0ADA THERAPEUTIC TARGET < 7.0ACTION SUGGESTED> 7.0 Immature granulocytes/100 WBC (Bld) 0.1 % 0.0-0.5 [facility] Leukocytes [#/volume] correc barbara for nucleated erythrocytes in Blood by Automated counon 06-26-2024 WBC corrected for nucl RBC Auto (Bld) [#/Vol] 6.8 10 3/uL 4.0-11.0 [facility] Lymphocytes Auto (Bld) [#/Vo l]on 06-26-2024 Lymphocytes (Bld) [#/Vol] 1.9 10 3/uL 1.2-3.8 [facility] Lymphocytes/100 WBC Auto (Bl d)on 06-26-2024 Lymphocytes/100 WBC (Bld) 28.3 % 20.5-60.0 [facility] MCH Auto (RBC) [Entitic mass ]on 06-26-2024 MCH (RBC) [Entitic mass] 31.6 pg 25.9-34.0 [facility] MCHC Auto (RBC) [Mass/Vol]on 06-26-2024 MCHC (RBC) [Mass/Vol] 35.4 g/dL High 29.9-35.2 [facility] MCV Auto (RBC) [Entitic vol] on 06-26-2024 MCV (RBC) [Entitic vol] 89.5 fL 80.0-94.0 [facility] Monocytes Auto (Bld) [#/Vol] on 06-26-2024 Monocytes (Bld) [#/Vol] 0.6 10 3/uL 0.3-0.8 [facility] Monocytes/100 WBC Auto (Bld) on 06-26-2024 Monocytes/100 WBC (Bld) 8.4 % 1.7-12.0 [facility] Neutrophils Auto (Bld) [#/Vo l]on 06-26-2024 Neutrophils (Bld) [#/Vol] 4.0 10 3/uL 1.4-6.5 [facility] Neutrophils/100 WBC Auto (Bl d)on 06-26-2024 Neutrophils/100 WBC (Bld) 59.8 % 43.0-75.0 [facility] No Panel Informationon 06-26 Eosinophils # (Auto) 0.2 10 3/uL 0.0-0.7 [facility] Immature Granulocyte # (Auto) 0.01 10 3/uL 0.00-0.03 [facility] Prostate Specific Antigen Screen 4.72 ng/mL High <=4.00 [facility] Platelet mean volume Auto (B ld) [Entitic vol]on 06-26-2024 Platelet mean volume (Bld) [Entitic vol] 9.9 fL 9.5-13.5 [facility] Platelets Auto (Bld) [#/Vol] on 06-26-2024 Platelets (Bld) [#/Vol] 194 10 3/uL 150-450 [facility] RBC Auto (Bld) [#/Vol]on RBC (Bld) [#/Vol] 4.74 10 6/uL 4.70-6.10 [facility] Serum or plasma albumin/glob ulin mass ratioon 06-26-2024 Albumin/Globulin [Mass ratio] 1.1 {ratio} [facility] Serum or plasma anion gap de terminationon 06-26-2024 Anion gap [Moles/Vol] 11.8 mmol/L [facility] Serum or plasma total choles terol/high density lipoprotein (HDL) cholesterol mass lorene 06-26-2024 Cholesterol.total/Ch olesterol in HDL [Mass ratio] 3.0 {ratio} [facility] Comment on above: 3.3 - 4.4 LOW RISK4. 4 - 7.1 AVERAGE RISK7.1 - 11.0 MODERATE RISK>11.0 HIGH RISK Comprehensive [facility]ane karl 06-30-2023 Albumin [Mass/Vol] 4.127030 g/dL Normal 3.4-5.0 g/dL [facility] [employer] Other ALP [Catalytic activity/Vol] 65 U/L Normal 46-116 U/L [employer] Other ALT [Catalytic activity/Vol] 31 U/L Normal 16-63 U/L [employer] Other Anion gap [Moles/Vol] 9.2 mmol/L [employer] Other AST [Catalytic activity/Vol] 18 U/L Normal 15-37 U/L [employer] Other Bilirubin [Mass/Vol] 0.0763867 mg/dL Normal 0.2-1.0 mg /dL [place] [employer] Other Calcium [Mass/Vol] 9.9432818 mg/dL Normal 8.5-10.1 mg/ dL [facility] [employer] Other Chloride [Moles/Vol] 104 mmol/L Normal 98-107 mmol/L [facility] [employer] Other CO2 [Moles/Vol] 31.75987261 mmol/L Normal 21.0-3 2.0 mmol/L [place] [employer] Other Creatinine [Mass/Vol] 0.38432896 mg/dL Normal 0.70-1.30 mg/dL [place] [employer] Other Glucose [Mass/Vol] 107 mg/dL High 74-106 mg/dL Nort [employer] Other Potassium [Moles/Vol] 3.08220177 mmol/L Normal 3.5-5.1 mmol/L [place] [employer] Other Protein [Mass/Vol] 7.433420 g/dL Normal 6.4-8.2 g/dL [facility] [employer] Other Sodium [Moles/Vol] 141 mmol/L Normal 136-145 mmol/L No rt [employer] Other Urea nitrogen [Mass/Vol] 17.7644492 mg/dL Normal 7.0-18.0 mg/dL [place] [employer] Other Urea nitrogen/Creatinine [Mass ratio] 17.2 mg/mg [place] [employer] Other Comprehensive Metabolic Panel 3.7 g/dL [employer] Other Comprehensive Metabolic Panel 1.1 [employer] Other Comprehensive Metabolic Panel see note [employer] Other Comprehensive Metabolic Panel >60 >=60 [employer] Other Lipid Panelon 06-30-2023 Cholesterol [Mass/Vol] 128 mg/dL <=200 mg/dL [facility] [employer] Other Cholesterol in HDL [Mass/Vol] 46 mg/dL Normal 40-60 mg/dL [facility] [employer] Other Triglyceride [Mass/Vol] 160 mg/dL High <=150 mg/dL [facility] [employer] Other Lipid Panel 50.0 mg/dL [facility] [employer] Other Lipid Panel 32.0 mg/dL [facility] [employer] Other Lipid Panel 2.8 [facility] [employer] Other PSA SCREENINGon 06-30-2023 PSA SCREENING 3.51 ng/mL <=4.00 ng/mL [facility] [employer] Other CBC AUTO DIFFon 06-24-2022 BASO # 0.1 103/ul Normal 0.0-0.1 [facility] Comment on above: Performed By: #### C BC #### [facility] [address] [place] [address] Dr. Julia Gonzalez Basophils/100 WBC (Bld) 0.7 % Normal 0.2-2.0 [facility] Comment on above: Performed By: #### C BC #### [facility] [address] [place] [address] Dr. Julia Gonzalez EO # 0.2 103/ul Normal 0.0-0.7 [facility] Comment on above: Performed By: #### C BC #### [facility] [address] [place] [address] Dr. Julia Gonzalez Eosinophils/100 WBC (Bld) 2.9 % Normal 0.9-7.0 [facility] Comment on above: Performed By: #### C BC #### [facility] [address] [place] [address] Dr. Julia Gonzalez Erythrocyte distribution width (RBC) [Ratio] 12.6 % Normal 11.0-15.0 [facility] Comment on above: Performed By: #### C BC #### [facility] [address] [place] [address] Dr. Julia Gonzalez Hematocrit (Bld) [Volume fraction] 41.7 % Critically low 42.0-54.0 [facility] Comment on above: Performed By: #### C BC #### [facility] [address] [place] [address] Dr. Julia Gonzalez Hemoglobin (Bld) [Mass/Vol] 14.4 g/dL Normal 14.0-18.0 [facility] Comment on above: Performed By: #### C BC #### [facility] [address] [place] [address] Dr. Julia Gonzalez IG # 0.02 10e3/ul Normal 0.00-0.03 [facility] Comment on above: Performed By: #### C BC #### [facility] [address] [place] [address] Dr. Julia Gonzalez IG % 0.3 % Normal 0.0-0.5 [facility] Comment on above: Performed By: #### C BC #### [facility] [address] [place] [address] Dr. Julia Gonzalez LYMPH # 2.2 103/ul Normal 1.2-3.8 [facility] Comment on above: Performed By: #### C BC #### [facility] [address] [place] [address] Dr. Julia Gonzalez Lymphocytes/100 WBC (Bld) 31.2 % Normal 20.5-60.0 [facility] Comment on above: Performed By: #### C BC #### [facility] [address] [place] [address] Dr. Julia Gonzalez MANUAL DIFF REQ NO Normal [facility] Comment on above: Performed By: #### C BC #### [facility] [address] [place] [address] Dr. Julia Gonzalez MCH (RBC) [Entitic mass] 31.0 pg Normal 25.9-34.0 [facility] Comment on above: Performed By: #### C BC #### [facility] [address] [place] [address] Dr. Julia Gonzalez MCHC (RBC) [Mass/Vol] 34.5 g/dL Normal 29.9-35.2 [facility] Comment on above: Performed By: #### C BC #### [facility] [address] [place] [address] Dr. Julia Gonzalez MCV (RBC) [Entitic vol] 89.7 fL Normal 80.0-94.0 [facility] Comment on above: Performed By: #### C BC #### [facility] [address] [place] [address] Dr. Julia Gonzalez MONO # 0.6 103/ul Normal 0.3-0.8 [facility] Comment on above: Performed By: #### C BC #### [facility] [address] [place] [address] Dr. Julia Gonzalez Monocytes/100 WBC (Bld) 9.0 % Normal 1.7-12.0 [facility] Comment on above: Performed By: #### C BC #### [facility] [address] [place] [address] Dr. Julia Gonzalez NEUT # 3.9 103/ul Normal 1.4-6.5 [facility] Comment on above: Performed By: #### C BC #### [facility] [address] [place] [address] Dr. Julia Gonzalez Neutrophils/100 WBC (Bld) 55.9 % Normal 43.0-75.0 [facility] Comment on above: Performed By: #### C BC #### [facility] [address] [place] [address] Dr. Julia Gonzalez Platelet mean volume (Bld) [Entitic vol] 9.6 fL Normal 9.5-13.5 [facility] Comment on above: Performed By: #### C BC #### [facility] [address] [place] [address] Dr. Julia Gonzalez PLT 198 103/ul Normal 150-450 [facility] Comment on above: Performed By: #### C BC #### [facility] [address] [place] [address] Dr. Julia Gonzalez RBC 4.65 106/ul Critically low 4.70-6.10 [facility] Comment on above: Performed By: #### C BC #### [facility] [address] [address] [address] Julia Gonzalez WBC 6.9 103/ul Normal 4.0-11.0 [facility] Comment on above: Performed By: #### C BC #### [facility] [address] [address] [address] Julia Gonzalez LIPID PROFILEon 06-24-2022 CHOL-HDL RATIO NORM SEE BELOW Normal [facility] Comment on above: Result Comment: 3.3 - 4.4 LOW RISK 4.4 - 7.1 AVERAGE RISK 7.1 - 11.0 MODERATE RISK >11.0 HIGH RISK Performed By: #### C MP, LIPID #### [facility] [address] [place] [address] Dr. Julia Gonzalez Cholesterol [Mass/Vol] 138 mg/dL Normal <=200 [facility] Comment on above: Performed By: #### C MP, LIPID #### [facility] [address] [place] [address] Dr. Julia Gonzalez Cholesterol in HDL [Mass/Vol] 48 mg/dL Normal 40-60 [facility] Comment on above: Performed By: #### C MP, LIPID #### [facility] [address] [place] [address] Dr. Julia Gonzalez Cholesterol in LDL [Mass/Vol] 66.6 mg/dL Normal [facility] Comment on above: Performed By: #### C MP, LIPID #### [facility] [address] [address] [address] Julia Gonzalez Cholesterol.total/Ch olesterol in HDL [Mass ratio] 2.9 {ratio} Normal [facility] Comment on above: Performed By: #### C MP, LIPID #### [facility] [address] [address] [address] Julia Gonzalez HDL NORMAL > or = 60 mg/dl - LOW CARDIOVASCULAR RISK <40 mg/dl - HIGH CARDIOVASCULAR RISK Normal [facility] Comment on above: Performed By: #### C MP, LIPID #### [facility] [address] [address] [address] Julia Gonzalez LDL CALC NORMAL SEE BELOW Normal [facility] Comment on above: Result Comment: <100 mg/dl OPTIMAL 100 - 129 mg/dl NEAR OR ABOVE OPTIMAL 130 - 159 mg/dl BORDERLINE HIGH 160 - 189 mg/dl HIGH >190 mg/dl VERY HIGH Performed By: #### C MP, LIPID #### [facility] [address] [address] [address] Julia Gonzalez Triglyceride [Mass/Vol] 117 mg/dL Normal <=150 [facility] Comment on above: Performed By: #### C MP, LIPID #### [facility] [address] [address] [address] Julia Gonzalez VLDL CALC 23.4 mg/dL Normal [facility] Comment on above: Performed By: #### C MP, LIPID #### [facility] [address] [place] [address] Dr. Julia Gonzalez PROF 14(COMP METB)on 022 Albumin [Mass/Vol] 4.0 g/dL Normal 3.4-5.0 [facility] Comment on above: Performed By: #### C MP, LIPID #### [facility] [address] [place] [address] Dr. Julia Gonzalez Albumin/Globulin [Mass ratio] 1.1 {ratio} Normal [facility] Comment on above: Performed By: #### C MP, LIPID #### [facility] [address] [address] [address] Julia Gonzalez ALP [Catalytic activity/Vol] 64 U/L Normal 46-116 [facility] Comment on above: Performed By: #### C MP, LIPID #### [facility] [address] [address] [address] Julia Gonzalez ALT [Catalytic activity/Vol] 29 U/L Normal 16-63 [facility] Comment on above: Performed By: #### C MP, LIPID #### [facility] [address] [address] [address] Julia Gonzalez Anion gap [Moles/Vol] 9.1 mmol/L Normal [facility] Comment on above: Performed By: #### C MP, LIPID #### [facility] [address] [address] [address] Julia Gonzalez AST [Catalytic activity/Vol] 19 U/L Normal 15-37 [facility] Comment on above: Performed By: #### C MP, LIPID #### [facility] [address] [address] [address] Julia Gonzalez Bilirubin [Mass/Vol] 0.6 mg/dL Normal 0.2-1.0 [facility] Comment on above: Performed By: #### C MP, LIPID #### [facility] [address] [address] [address] Julia Gonzalez Calcium [Mass/Vol] 9.4 mg/dL Normal 8.5-10.1 [facility] Comment on above: Performed By: #### C MP, LIPID #### [facility] [address] [address] [address] Julia Gonzalez Chloride [Moles/Vol] 105 mmol/L Normal 98-107 [facility] Comment on above: Performed By: #### C MP, LIPID #### [facility] [address] [address] [address] Julia Gonzalez CO2 [Moles/Vol] 30.2 mmol/L Normal 21.0-32.0 [facility] Comment on above: Performed By: #### C MP, LIPID #### [facility] [address] [address] [address] Julia Gonzalez Creatinine [Mass/Vol] 0.91 mg/dL Normal 0.70-1.30 [facility] Comment on above: Performed By: #### C MP, LIPID #### [facility] [address] [address] [address] Julia Gonzalez EGFR-AF NAURUAN >60 Normal >=60 [facility] Comment on above: Performed By: #### C MP, LIPID #### [facility] [address] [address] [address] Julia Gonzalez EGFR-NON AF NAURUAN >60 Normal >=60 [facility] Comment on above: Performed By: #### C MP, LIPID #### [facility] [address] [address] [address] Julia Gonzalez Globulin (S) [Mass/Vol] 3.7 g/dL Normal [facility] Comment on above: Performed By: #### C MP, LIPID #### [facility] [address] [address] [address] Julia Gonzalez Glucose [Mass/Vol] 113 mg/dL Critically high 74-106 [facility] Comment on above: Performed By: #### C MP, LIPID #### [facility] [address] [address] [address] Julia Gonzalez Potassium [Moles/Vol] 4.3 mmol/L Normal 3.5-5.1 [facility] Comment on above: Performed By: #### C MP, LIPID #### [facility] [address] [place] [address] Dr. Julia Gonzalez Protein [Mass/Vol] 7.7 g/dL Normal 6.4-8.2 [facility] Comment on above: Performed By: #### C MP, LIPID #### [facility] [address] [address] [address] Julia Gonzalez Sodium [Moles/Vol] 140 mmol/L Normal 136-145 [facility] Comment on above: Performed By: #### C MP, LIPID #### [facility] [address] [address] [address] Julia Gonzalez Urea nitrogen [Mass/Vol] 20.0 mg/dL Critically high 7.0-18.0 [facility] Comment on above: Performed By: #### C MP, LIPID #### [facility] [address] [address] [address] Julia Gonzalez Urea nitrogen/Creatinine [Mass ratio] 22.0 mg/mg Normal [facility] Comment on above: Performed By: #### C MP, LIPID #### [facility] [address] [address] [address] Julia Gonzalez MG MAMM DIAGNOSTIC 3D SONIYA CA Don 11-30-2021 MG MAMM DIAGNOSTIC 3D SONIYA CAD Patient: GWEN MCBRIDE Exam Date: 11/30/2021 : 1960 Gender:M Ordering : DR JOSE PARKS D.O. Admission #: [id number] Family : Order #: [id number] CLICK HERE TO VIEW EXAM RADIOLOGY REPORT [...] neck cancer at age 67. LOCATION: [facility] BREAST COMPOSITION: Almost entirely fatty. FINDINGS: [...] Llanes M.D. on 11/30/2021 at 15:34 Normal [facility] US BREAST LEFT LIMITEDon US BREAST LEFT LIMITED Patient: GWEN MCBRIDE Exam Date: 11/30/2021 : 1960 Gender:M Ordering : DR JOSE PARKS D.O. Admission #: [id number] Family : Order #: [id number] CLICK HERE TO VIEW EXAM RADIOLOGY REPORT [...] neck cancer at age 67. LOCATION: [facility] BREAST COMPOSITION: Almost entirely fatty. FINDINGS: [...] Llanes M.D. on 11/30/2021 at 15:34 Normal [facility] Vital Signs Date Time Vital Sign Value Performing Clinician Facility 07-01-2024 09:21-0400 Body height 182.88 cm [facility] 07-01-2024 09:21-0400 Body mass index (BMI) [Ratio] 32.3 kg/m2 [facility] 07-01-2024 08:57-0400 Body weight 108.01 kg [facility] 07-01-2024 08:57-0400 Diastolic blood pressure 102 mm[Hg] [facility] 07-01-2024 08:57-0400 Heart rate 103 /min [facility] 07-01-2024 08:57-0400 Respiratory rate 12 /min [facility] 07-01-2024 08:57-0400 Systolic blood pressure 148 mm[Hg] [facility] 12-29-2023 09:12-0400 Body height 170.18 cm [facility] 12-29-2023 09:12-0400 Body mass index (BMI) [Ratio] 37.1 kg/m2 [facility] 12-29-2023 09:12-0400 Body weight 107.55 kg [facility] 12-29-2023 09:12-0400 Diastolic blood pressure 88 mm[Hg] [facility] 12-29-2023 09:12-0400 Heart rate 78 /min [facility] 12-29-2023 09:12-0400 Systolic blood pressure 130 mm[Hg] [facility] 06-30-2023 08:30-0400 Body height 170.18 cm Jose Ball Other [facility] Other 06-30-2023 08:30-0400 Body mass index (BMI) [Ratio] 36.68 kg/m2 Jose Ball Other [facility] Other 06-30-2023 08:30-0400 Body weight 106.23 kg Jose Ball Other [facility] Other 06-30-2023 08:30-0400 Diastolic blood pressure 93 mm[Hg] Jose Ball Other [facility] Other 06-30-2023 08:30-0400 Respiratory rate 12 /min Jose Ball Other [facility] [facility] Other 06-30-2023 08:30-0400 Systolic blood pressure 166 mm[Hg] Jose Ball Other [facility] Other 12-30-2022 12:00-0400 Body height 170.18 cm Jose Ball Other [facility] Other 12-30-2022 12:00-0400 Body mass index (BMI) [Ratio] 37.02 kg/m2 Jose Ball Other [facility] Other 12-30-2022 12:00-0400 Body weight 107.23 kg Jose Ball Other [facility] Other 12-30-2022 12:00-0400 Diastolic blood pressure 96 mm[Hg] Jose Ball Other [facility] Other 12-30-2022 12:00-0400 Respiratory rate 12 /min Jose Ball Other [facility] Other 12-30-2022 12:00-0400 Systolic blood pressure 141 mm[Hg] Jose Parks Other [employer] Other Encounters Encounter Date Encounter Type Care Provider Facility Start: 07-01-2024 End: 07-01-2024 ambulatory [facility] Work Phone: Start: 07-01-2024 End: 07-01-2024 Encounter for general adult medical examination without abnormal findings [facility] Start: 07-01-2024 End: 07-01-2024 Patient encounter procedure [facility] Work Phone: Start: 06-29-2024 Patient encounter status [facility] Start: 06-26-2024 Non-patient / Non-visit [facility] [employer] Work Phone: Start: 12-29-2023 End: 12-29-2023 ambulatory [facility] Work Phone: Start: 12-29-2023 End: 12-29-2023 Patient encounter procedure [facility] Work Phone: Start: 06-30-2023 End: 06-30-2023 ambulatory Jose Parks Other [facility] [facility] Other Start: 06-30-2023 Encounter for genera l adult medical examination without abnormal findings Jose Parks [facility] Start: 06-30-2023 Periodic preventive med est patient 40-64yrs Jose Parks [facility] Start: 06-30-2023 Telephone encounter Jose Parks [facility] Start: 12-30-2022 End: 12-30-2022 ambulatory Jose Parks Other [employer] Other Start: 12-30-2022 Office outpatient vi sit 25 minutes Jose Parks [facility] Start: 06-29-2022 Encounter for genera l adult medical examination without abnormal findings DR JOSE PARKS [facility] Start: 06-24-2022 End: 06-25-[address] JOSE PARKS Facility:[facility] Start: 06-24-2022 End: 06-25-2022 Encounter for general adult medical examination without abnormal findings DR JOSE PARKS Facility:[facility] Start: 11-30-2021 End: 12-01-[address] JOSE PARKS Facility:[facility] Procedures Date Procedure Procedure Detail Performing Clinician Start: 06-24-[address] KENNA PARKS Comment on above: Performed By: #### P [facility] #### [facility] [address] [place] [address] Dr. Julia Gonzalez Immunizations Immunization Date Immunization Notes Care Provider Fa cili 06-30-2023 influenza, injectabl e, quadrivalent, preservative free Jose Parks Other [facility] 06-29-2022 influenza virus vaccine, split virus (incl. purified surface antigen) Jose Parks Other [employer] Other 06-29-2022 influenza virus vaccine, unspecified formulation [facility] 12-24-2021 COVID-19 Vaccine Moderna - Documentation Purposes Only Jose Parks Other [facility] 07-09-2021 COVID-19 Vaccine Moderna - Documentation Purposes Only Jose Parks Other [facility] 06-28-2021 influenza virus vaccine, split virus (incl. purified surface antigen) Jose Parks Other [employer] Other 06-28-2021 influenza virus vaccine, unspecified formulation [facility] 12-17-2020 COVID-19 Vaccine Moderna - Documentation Purposes Only Jose Parks Other [facility] 11-17-2020 COVID-19 Vaccine Moderna - Documentation Purposes Only Jose Parks Other [facility] 05-23-2017 tetanus and diphther ia toxoids, adsorbed, preservative free, for adult use (5 Lf of tetanus toxoid and 2 Lf of diphtheria toxoid) Jose Parks Other [facility] 06-03-2016 tetanus and diphther ia toxoids, adsorbed, preservative free, for adult use (5 Lf of tetanus toxoid and 2 Lf of diphtheria toxoid) Jose Parks Other [facility] Payers Date Payer Category Payer Unknown [id number] 1960 Unknown [id number] 1959 Unknown [id number] Unknown [id number] Social History Date Type Detail Facility Sex Assigned At [facility] [employer] Other Start: 1960 Sex Assigned At Male F [facility] Evaluation note 06-30-2023 Note Date & Type [...] Jun, Colon cancer screening (ICD-10 - Z12.11) [employer] Other Evaluation note 12-30-2022 Note Date & [...] and feet daily for blisters and ulcerations. [employer] Other Evaluation note Note Date & Type Note Facility Evaluation note No Information [employer] Other Evaluation note Note Date & Type Note Facility Evaluation note Diagnosis Onset Date Benign prostatic hyperplasia with lower urinary tract symptoms acute Chronic venous insufficiency acute Elevated cholesterol acute Gastroesophageal reflux dise ase with esophagitis without hemorrhage acute IFG (impaired fasting glucose) acute Primary hypertension acute [facility] Work Phone: Evaluation note Note Date & Type Note Facility Evaluation note Diagnosis Onset Date Benign prostatic hyperplasia with lower urinary tract symptoms acute Chronic venous insufficiency acute Elevated cholesterol acute Gastroesophageal reflux dise ase with esophagitis without hemorrhage acute IFG (impaired fasting glucose) acute Primary hypertension acute Wellness examination acute [facility] Work Phone: History general Narrative - Reported Note Date & Type Note Facility History general Narrative - Reported Type Medical History Primary hypertension Medical History Elevated cholesterol Medical History Gastroesophageal ref lux disease with esophagitis without hemorrhage Medical History Chronic venous insufficiency Medical History Benign prostatic hyp erplasia with lower urinary tract symptoms Medical History IFG (impaired fasting glucose) Medical History Gynecomastia [employer] Other History general Narrative - Reported Note [...] [employer] Hospitalization History SEE SURGICAL HX [employer] Other Summary Purpose Family History Relationship Condition Age at Onset Recorded Date/T judy brother Myocardial infarction Unknown father Unknown Heart disease Unknown Not Specified Hypertension Unknown Unknown Relationship Condition Age at Onset Recorded Date/T judy brother Myocardial infarction Unknown father Unknown Heart disease Unknown mother Hypertension Unknown Unknown Advance Directives Advance Directive Response Recorded Date/ Time Advance Directives No October 02, 2023 1:34pm Chief Complaint and Reason for Visit Chief Complaint 6 month follow up Reason for Visit Benign prostatic hyp erplasia with lower urinary tract symptoms Chronic venous insufficiency Elevated cholesterol Gastroesophageal reflux disease with esophagitis without hemorrhage IFG (impaired fasting glucose) Primary hypertension Chief Complaint wellness Reason for Visit Benign prostatic hyp erplasia with lower urinary tract symptoms Chronic venous insufficiency Elevated cholesterol Gastroesophageal reflux disease with esophagitis without hemorrhage IFG (impaired fasting glucose) Primary hypertension Wellness examination Additional Source Comments (unrecognized sect ion and content) No Status Records Found INFORMATION SOURCE (unrecogn ized section and content) DATE CREATED AUTHOR 06/30/2022 [facility] REASON FOR VISIT (unrecogniz ed section and content) 6 MONTH FOLLOW UPWellnessRes ts Care Teams (unrecognized sec tion and content) Team Status: Active Member Role Status Dates Jose Parks , DO Primary Care Provider Active Team Status: Active Member Role Status Dates Jose Parks , DO Primary Care Provide r, Attending Provider Active Start: June 26, 2024 Team Status: Inactive Member Role Status Dates Jose Parks , DO Primary Care Provide r, Attending Provider Active Start: July 01, 2024 End: July 01, 2024 Team Status: Active Member Role Status Dates Jose Parks , DO Primary Care Provider Active Team Status: Inactive Member Role Status Dates Jose Parks , DO Primary Care Provide r, Attending Provider Active Start: December 29, 2023 End: December 29, 2023 Team Status: Active Member Role Status Trinidad Parks , DO Primary Care Provide r, Attending Provider Active Start: June 26, 2024 Team Status: Inactive Member Role Status Dates Jose Parks , DO Primary Care Provide r, Attending Provider Active Start: July 01, 2024 End: July 01, 2024 Goals (unrecognized section and content) Goals may [...] BE BASED ON THE PRIMARY CLINICAL RECORDS. [facility] [employer] [facility]. provides no warranty or guarantee of the accuracy or completeness of information in this document.
[2024-07-30 04:07] LABS: PSA, Free 0.61 ng/mL; Prostate Specific Ag 3.7 ng/mL (0.0-4.0)
== END 2024-07-29 10:14 | disposition home or self-care (01) ==
LOC: LAB 10:15
PROVIDERS: PCP Internal Medicine; Visit Provider Internal Medicine
DX: R97.20 Elevated prostate specific antigen [PSA] (principal)
CPT/HCPCS: 36415; 84153; 84154

== ENCOUNTER 2025-07-21 08:02 | Outpatient (OUT) | payer OTHER, MEDICARE, SELFPAY ==
--- OUTSIDE RECORDS SUMMARY | 2025-07-18 05:46 | XMS_ITS | Continuity of Care Document ---
Author Organization [facility] Address [address] [place] [address] Phone Care Team Providers Care Hop Picker Name Role Phone Jose Day DO Primary Care Provider Reed Chang MD Attending Provider [phone] Jose Day DO Attending Provider [phone] Care Teams Patient Care Team Team Status: Active Member Role/Relationship Status Dates Jose Day DO Primary Care Provider Active Visit Care Team Team Status: Inactive Member Role/Relationship Status Dates Jose Day DO Primary Care Provider Active Start: May 28, 2025 End: May 28, 2025Matthew Rogers ProviderActiveStart: May 28, 2025 End: May 28, 2025 Visit Care Team Team Status: Inactive Member Role/Relationship Status Dates Jose Day DO Primary Care Provider Active Start: July 07, 2025 End: July 07Isidro Downs ProviderActiveStart: July 07, 2025 End: July 07, 2025 Patient Care Team Team Status: Inactive Member Role/Relationship Status Dates Jose Day DO Primary Care Provider Active Start: July 18, 2025 End: July 18Isidro Downs ProviderActiveStart: July 18, 2025 End: July 18, 2025 Chief Complaint and Reason for Visit Chief Complaint Admit Date R97.20 May 28, 2025 1:46pm Painful and swollen leg July 07 2:43pm Wellness July 18, 2025 9:50am Reason for Visit Admit Date Inflammatory arthritis July 07 2:43pm Right foot pain July 07, 2025 2 :43pm Chronic venous insufficiency July 182024 9:50am Elevated cholesterol July 18, 2025 9:50am Elevated PSA July 18, 2025 9:50am Gastroesophageal reflux dise ase with esophagitis without hemorrhage July 18, 2025 9:50am IFG (impaired fasting glucose) July 18, 2025 9:50am Primary hypertension July 18, 2025 9:50am Wellness examination July 18, 2025 9:50am Allergies, Adverse Reactions, Alerts Allergen Type Severity Reaction Last Updated Verified Status acetaminophen Allergy Unknown Unknown Reaction Novem marci 2024 9:57am Yes Active azathioprine Allergy Unknown Unknown Reaction Novemb er 2024 9:57am Yes Active Social History Smoking Status Unknown if ever smoked Observation Status Observation Response Date of Response Legal Sex Male (finding) Sex Assigned At BirthMaleSeptember 1959 Family History Relationship Condition Age at Onset Recorded Date/T judy brother Myocardial infarction Unknown fatherDeceasedUnknownHeart diseaseUnknownmotherHypertensionUnknownDeceased Unknown Problems Active Problems Problem Diagnosis/Recorded Date Onset Date Status C omments Elevated PSA June 26, 2024 8:07pm Unknown Active PSA:2.99 - 06/2021, 3.11 - 06/2022, 3.51 - 06/2023, 4.72 - 06/2024, 3.70 (16.5%) - 07/2024,TRUS/Bx: normal - 06/26/25 Gastroesophageal reflux disease with esophagitis without hemorrhage December 27, 2023 11:47am Unknown Active Screening PSA (prostate specific antigen)June 26, 2024 8:02pmUnknownActive PSA:2.99 - 06/2021, 3.11 - 06/2022, 3.51 - 06/2023, 4.72 - 06/2024, 3.70 (16.5%) - 07/2024TRUS/Bx: normal - 06/26/25Inflammatory arthritisNovember 2024 3:28pmUnknownActiveElevated cholesterolApril 2023 11:47amUnknownActive Wellness examinationOctober 2023 6:50amUnknownActiveIFG (impaired fasting glucose)December 27, 2023 11:47amUnknownActivePrimary hypertensionApril 2023 11:47amUnknownActiveBenign prostatic hyperplasia with lower urinary tract symptomsApril 2023 8:31amUnknownActiveChronic venous insufficiencyApril 2023 11:47amUnknownActive Medications Medication Status Dose Units Route Directions Qty Days Refills S tart Date Stop Date End Date Reason(s) Instructions Adherence Lisinopril-Hydrochlorothiazide 20-25 mg tablet Discont inued 0 .ROUTE.KRNCUHY987Nfwlzzllh 27th, 2024 12:01pmJanuary 2024 5:04pmTAKE 1 TABLET BY MOUTH DAILYAtorvastatin 10 mg tabletDiscontinued0.ROUTE.DUZKBAY884 May 31, 2024 12:01pmJanuary 2024 5:04pmTAKE 1 TABLET BY MOUTH DAILY IN THE EVENINGLisinopril 10 mg tabletDiscontinued0.ROUTE.MIBBXIO983Otumgxjii 27th, 2024 12:02pmOctober 2023 4:09pmTAKE 1 TABLET BY MOUTH DAILYLisinopril 10 mg tabletDiscontinued0.ROUTE.MGSOTMO0795Rxzoyrv 2023 3:34pmOctober 2023 9:45amTAKE 1 TABLET BY MOUTH DAILYLisinopril 10 mg iffhegOfxycuogackz87PDDG Bsmmc73230Zfgkipn 2023 9:45amJanuary 2024 5:04pmLevofloxacin 500 mg zlqxruUwexrazkcihf412AWGDRexue51429Mfjwvuz 2023 11:00pmOctober 2023 3:19pmLevofloxacin 500 mg rmecixMjnchmmynyrr612MMQSPawtx58608Njqewue 2023 3:19pmApril 2024 7:59amAtorvastatin 10 mg psaphqWaoxkavcnuoa33SAQAFgofm liccwos17613Kxcxzso 2024 5:03pmAugust 2024 4:36pmLisinopril 10 mg zxnjtkHrslzstbtoia57ICWSLxihx49068Ciopvvr 2024 5:03pmAugust 2024 4:36pmLisinopril-Hydrochlorothiazide 20-25 mg hzruaoGydxemosrcqu0ERULOEvgxl57600 September 05, 2024 5:04pmAugust 2024 4:37pmTamsulosin 0.4 mg capsule Discontinued0.4MGPODaily at ahgmeia60748Ldgh 11th, 2025 11:00pmAugust 2024 4:36pmAtorvastatin 10 mg hbdjrkHzbwwdiebgil66XOMQMflvw rgkbasm35919Gdjala 26th, 2025 4:35pmAugust 2024 7:41amTamsulosin 0.4 mg capsuleDiscontinued0.4MGPO Daily at qgvnzgy10713Soygoh 26th, 2025 4:36pmAugust 2024 7:41amLisinopril 10 mg mqudppBlajqiwtfnyt49EKFPXgkhw66438Gtgmgu 26th, 2025 4:36pmAugust 2024 7:42amLisinopril-Hydrochlorothiazide 20-25 mg kulxotKmnruonedyob0WCFIRBuhow 20152Tkmmux2024 4:36pmSeptember 2024 12:19pmAtorvastatin 10 mg hcndroQknraubzhhae43OPOVIfcnp flomfpm82579Dokiud 29th, 2025 7:41amAugust 2024 7:42amTamsulosin 0.4 mg capsuleDiscontinued0.4MGPODaily at dqtgyug91759 May 02, 2025 7:41amAugust 2024 7:43amLisinopril 10 mg jfyvpcJzmlkv85 JHZLEackr55613Cxzvlt 29th, 2025 7:41amComplies with drug therapyAtorvastatin 10 mg wboprlTajmdq67PBZIHzefz olrronw40014Sdtvzn 29th, 2025 7:42amComplies with drug therapyTamsulosin 0.4 mg capsuleDiscontinued0.4MGPODaily at yglkflw85993 May 02, 2025 7:42amNovember 2024 10:03amLisinopril- Hydrochlorothiazide 20-25 mg mbaznhZsqxsw5QLXIZJvclx58620Dbicaspqd 2024 12:18pmComplies with drug therapyAtorvastatin 10 mg weuqnsIaeogmznpnrj02WROI DailyApril 2023 11:00pmSeptember 2023 12:02pmLisinopril 10 mg tablet Kknoewsmxogo81JIPIIgrmcDggbp 2023 11:00pmSeptember 2023 12:02pm Lisinopril-Hydrochlorothiazide 20-25 mg gnwsstRljeqpulpecn8IUMGWWfkvvYekth 2023 11:00pmSeptember 2023 12:02pmPrednisone 20 mg yrjlftIyqhfemyusur57CP POTwice seciq5540VjtqeefwJuly 07, 2025 12:00amNovember 2024 9:57amTamsulosin 0.4 mg capsuleActive0.4MGPOTwice dailyNov2024 10:02amUnknown Immunizations Immunization Event Date Not Given Reason Dose Number [facility] Lot Number Reason(s) Given Vaccine Information Statement (VIS) Detail Administration Location COVID-19 mRNA-1273 (Moderna) November 17, 2020 COVID-19 mRNA-1273 (Moderna)December 17OVID-19 mRNA-1273 (Moderna)July 09OVID-19 mRNA-1273 (Moderna)December 24OVID-19 mRNA Bivalent Booster (Moderna)July [id number] TIV High-Dose 65YR+July 18, [id number] [facility] HospitalIn[facility], seasonal, injectable, pf July 29, 2024U8523CAFPG [facility]Infl[facility] Quadrivalent PF MDCK June [id number] Influenza E8L9Zmkhjeql [id number], unspecified formulationOct2020influenza, unspecified formulation June 29neumococcal Conjugate Vaccine, 20 valentNov2024 [id number] [facility] HospitalQuadrivalent InfluenzaOctober 2022 Quadrivalent InfluenzaOctober [id number] InfluenzaSeptember [id number], Diphtheria adult, 5 Lf pres free absSeptember 2015Tetanus, Diphtheria adult, 5 Lf pres free absSept2016 Procedures Procedure Date Performed Status MR prostate wo/w con May 28, 2025 12:52p m completed Relevant Diagnostic Tests and/or Laboratory Data Laboratory Results Test Collection Date/Time Result Date/Time Result Interpretation Reference Range Result Comment Performing Site Bedside Creatinine May 28, 2025 1:05pm Septemb er 2024 1:08pm 1.2 mg/dL 0.6-1.3ER/ESD physician is notified/shown all ISTAT results.Critical values may be confirmed by laboratorytesting ifdeemed necessary by ER attending doctor. [facility] [id number] [address] [place] [address] 20474Ehfkxil Estimated GFR (eGFR)May 28, 2025 1:05pm May 28, 2025 1:08pm> 60.0[facility] [id number] [address] [place], [place] [id number] Diagnostic Imaging Reports Author Rolando Rodriguez [facility] DaytonAuthoredSeptember 2024 2:53pmReport Dictated Date/TimeDictated ByStatusRadiology ReportSeptember 2024 2:53pm Rolando Rodriguez Jr DOcompleteBarney [facility] [place] [address] [place], [place] [address] MRI Report Signed Patient: Alex Mcbride MR#: [id number] [birth year] : 1960 Acct:[id number] Age/Sex: 65 / M ADM Date: 5 Loc: Room: Type: [facility] [address] Attending Dr: Reed Chang MD Copies to: Reed Chang MD~ Ordering Provider: Reed Chang MD Date of Service: 05/28/25 MR/MR prostate wo/w con: R97.20 EXAMINATION: MR prostate wo/w con HISTORY: ELEVATED PSA COMPARISON: NONE TECHNIQUE: Multiparametric imaging of the prostate gland was performed with IV contrast. FINDINGS: Prostate Dimensions: 5.4 x 4.5 x 6.7 cm. Prostate Volume: 85 mL. Peripheral Zone: Heterogenous inT2 signal suggestive of prior prostatitis. A focal area of T2 hypointensity is seen involving the posterior aspect of the right peripheral zone at the level of the mid gland measuring 10 x 5 mm with associated restricted diffusion and low ADC value. No gross extracapsular extension is seen. Please see series 4 image 18, series 650 image 17 and series 600 image 17 Central/Transitional Zone: BPH changes. Seminal Vesicles: Unremarkable Neurovascular bundles: Unremarkable. Lymphadenopathy: No evidence of lymphadenopathy. Bladder: No focal lesion. Bowel: The visualized bowel is without acute abnormality. Peritoneal Cavity: Trace free fluid. Bones: No suspicious bony lesion. MR/MR prostate wo/w con IMPRESSION: A focal area of T2 hypointensity is seen involving the posterior aspect of the right peripheral zone at the level of the mid gland measuring 10 x 5 mm with associated restricted diffusion and low ADC value. No gross extracapsular extension is seen. Please see series 4 image 18, series 650 image 17 and series 600 image 17 PI_RADS 4. Targeting of this area on biopsy is recommended. Impression dictated by: Rolando Rodriguez Jr., D.OKadie 05/28/2025 2:58 PM Dictation Location: [place] [address] Transcribed By: [facility] 05/28/25 1458 Dictated By: Rolando Rodriguez Jr, DO 05/28/25 1453 Signed By: <Electronically signed by Rolando Rodriguez Jr, DO in OV> 05/28/25 1458 Vital Signs Vital Reading Result Reference Range Collection Date/Time Height 72 [in_i] May 28, 2025 1:28ocUawikb582.86 kgSeptember 2024 1:13dgVnoznj77 [in_i]July 07, 2025 2:23riTbmxmy398.22 kgNov2024 2:59pmHeart Wkxq592 /ltj05-812EyatqsvbJuly 07, 2025 2:59pmRespiratory rate12 /xyo10-39PjjjhdtsJuly 07, 2025 2:59pmBP Hfeaxyle805 mm[Hg]100-140Nov2024 2:59pmBP Mraxrrdte63 mm[Hg]60-100Nov2024 2:59pmBMI (Body Mass Index)32.9 kg/m2 July 07, 2025 2:20blUzboaj02 [in_i]July 18, 2025 10:54fuDvrqyp562.93 kgNov2024 10:01amHeart Rate97 /jeq14-246GbiasvfdJuly 18, 2025 10:01am Respiratory rate12 /ofn31-36NgyjrizmJuly 18, 2025 10:01amBP Sjfxiays047 mm[Hg] 100-140July 18, 2025 10:01amBP Ftssmzfda27 mm[Hg]60-100July 18, 2025 10:01amBMI (Body Mass Index)32.8 kg/k9XddruufdJuly 18, 2025 10:01am Advance Directives Advance Directive Response Recorded Date/ Time Advance Directives No October 02, 2023 12:34pm Insurance Providers Guarantor Alex Cantrell Tea Address [address] [address]Contact Info.Home Phone: Coverage Status Update:2025 Payer Group Member ID Coverage Type Subscriber Relationship to Subscriber Effective Date Expiration Date GILMAO [id number] A Tea Id: [id number] [address] [address] Home Phone: Email: [email or web address] [id number] Tamia Mcbried Id: [id number] [address] [address] Home Phone: Email: [email or web address] [id number] Tamia Mcbride Id: [id number] [address] [address] Home Phone: Email: [email or web address] [facility] [place] Id: [id number] Tamia Tea Id: [id number] [address] [address] Home Phone: Email: [email or web address]: Plan [id number] Encounters Encounter Location(s) Arrival/Admit Date Discharge/Departure Date Discharge/Departure Disposition Provider(s) Departed Clinical -[facility] May 28, 2025 1:46pm May 28, 2025 1:47pm Discharged to home care or self care (routine discharge) Jose Luis Beck MD Departed Physician/ Provider Office Visit -[facility] July 07, 2025 2:43pm July 07, 2025 3:27pm Discharged to home care or self care (routine discharge) Jose Day DO Departed Physician/ Provider Office Visit -[facility] July 18, 2025 9:50am July 18, 2025 10:45am Discharged to home care or self care (routine discharge) Jose Day DO Recent Diagnosis Onset Date Admit Date Inflammatory arthritis Unknown July 07, 2025 2:43pm Right foot pain Unknown July 07 2:43pm Chronic venous insufficiency Unknown Jul emb2024 9:50am Elevated cholesterol Unknown July 182024 9:50am Elevated PSA Unknown July 18, 2 025 9:50am Gastroesophageal reflux dise ase with esophagitis without hemorrhage Unknown July 18, 2025 9:5 0am IFG (impaired fasting glucose) Unknown N ov2024 9:50am Primary hypertension Unknown July 182024 9:50am Wellness examination Unknown July 182024 9:50am Assessments Diagnosis Onset Date Resolution Status Admit Date Inflammatory arthritis acuteJuly 07, 2025 2:43pmRight foot painnoneactiveJuly 07, 2025 2:43pm Chronic venous insufficiencyacuteJuly 18, 2025 9:50amElevated cholesterol acuteJuly 18, 2025 9:50amElevated PSAacuteJuly 18, 2025 9:50am Gastroesophageal reflux disease with esophagitis without hemorrhageacuteJuly 18, 2025 9:50amIFG (impaired fasting glucose)acuteJuly 18, 2025 9:50am Primary hypertensionacuteJuly 18, 2025 9:50amWellness examinationacute July 18, 2025 9:50am Plan of Treatment [facility] 3:30pmIce and elevate Avoid strenuous activity. Prednisone 20mg bid x 5 days then update office Swelling, erythema and tenderness over the forefoot Some concern for achilles tendonitis/rupture after taking Quinolone - no tenderness over the achilles tendon Instructed to use ice and Tylenol Author Jose [facility] 2024 10:41amI have instructed this patient on the recommended lifestyle changes, which includes a low fat, high fiber diet along with a regular exercise routine. I have also reviewed the recommended age-appropriate preventive testing for this patient. I have also reviewed the recommended vaccines for their age and risk factors. I have instructed this patient to consume a healthy, low-fat, low-salt diet. I have also encouraged them to continue exercise with weight loss to achieve/maintain a BMI < 30. I have instructed this patient on the correct procedure for obtaining home BP measurements:? - rest for 5 minutes w/o talking. - positioned w/ feet on floor and arms supported. - average best 2/3 readings w/ goal < 135/85. - update office w/ home readings in 2 weeks. Continue Lisinopril/HCTZ without interruption I have instructed this patient on a low fat, high fiber diet and exercise. I have discussed the primary and secondary prevention benefits attributed to lowering LDL cholesterol. I have also discussed the medical treatment of elevated cholesterol, which is based on the 10 year ASCVD risk. Continue Atorvastatin without interruption His A1C is between 5.7-6.5%. Instructed on low carb, high fiber diet. Instructed on routine exercise program for 30-60min three times weekly. Instructed on correlation between obesity and insulin resistance and encouraged to lose weight. Monitor A1C every 6 months. A1C 5.1% I have instructed this patient to avoid lying flat after eating.?? I have also recommended to avoid eating 2 hours prior to bedtime.?? They were also informed that smaller, frequent meals may be better tolerated. I have discussed additional treatment options for persistent symptoms, which includes: weight loss, H2 blockers and PPI. I have also instructed them to notify the office with any pain or difficulty swallowing. I have instructed this patient to avoid salt and elevate their lower extremities. I have also recommended use of support stockings. I instructed them to inspect their legs and feet daily for blisters and ulcerations. Referred to Urology: MRI w/ PiRADs 2 nodule TRUS/Bx: normal - 06/26/25 Future Tests Future scheduled test information is unavailable Pending Tests Test Name Ordered Date Scheduled Date Comprehensive Metabolic Panel July 18 10:37am Future Visits Future appointment information is unavailable Future Procedures Procedure Name Ordered Date Scheduled Date A1C with Estimated Average Glu July 18 10:38am Complete Blood Count Auto DiffNovember 2024 10:37amLipid PanelNovember 2024 10:37am Future Medications Future medication information is unavailable Patient Instructions Patient instructions are unavailable
--- OUTSIDE RECORDS SUMMARY | 2025-07-21 08:12 | XMS_ITS | CCD ---
Author Organization [facility] Care Team Providers Care Embedded Linux Developer Name Role Phone DR JOSE DAY Primary Care Unavailable BALL, DR MOLINA Admitting Unavailable BALL, DR MOLINA Attending Unavailable BALL, DR MOLINA Consulting Unavailable Zieber, DR Persaud Consulting Unavailable BALL, DR MOLINA Consulting Unavailable BALL, DR MOLINA Primary Care Unavailable BALL, DR MOLINA Admitting Unavailable BALL, DR MOLINA Attending Unavailable Shay, Jose Unavailable JOSE DAY Primary Care Physician Jose Day DO Primary Care Provider Reed Arana MD Attending Provider Reed Arana Attending Unavailable Cook, Reed P Admitting Unavailable Ball, Jose Primary Care Unavailable COOK, Reed P Admitting Unavailable COOK, Reed P Referring Unavailable COOK, Reed P Attending Unavailable COOK, Reed P Referring Unavailable COOK, Reed P Attending Unavailable COOK, Reed P Admitting Unavailable BALL, JOSE Referring Unavailable BALL, JOSE Referring Unavailable NELSON, Kishor R Attending Unavailable COOK, Reed P Attending Unavailable COOK, Reed P Referring Unavailable COOK, Reed P Admitting Unavailable COOK, Reed P Attending Unavailable BALL, JOSE Referring Unavailable COOK, Reed P Attending Unavailable COOK, Reed P Attending Unavailable Allergies Allergy ClassificationReported Allergen(s)Allergy TypeDate of OnsetReaction(s) Facility (6 sources)AcetaminophenDrug [id number], Unknown ReactionOhio [facility] (6 sources)azaTHIOprineDrug Blcadxe44-41-9911Udqxpen, Unknown ReactionOhio State Harding Hospital (1 source)AcetaminophenDrug Yixbmyl26-96-2178WiwqhrsmrOhio State [facility] Repository (1 source)azaTHIOprineDrug Rfhtrnw26-44-5444HcpfnwbahOhio State [facility] Hospital Rep[facility] (3 sources)No Known Medication Allergies; Translations: [No Known Medication Allergies]Propensity to adverse reactions (disorder)[facility] Repository Medications Current Medications MedicationDrug Class(es)DatesSig (Normalized)Sig (Original)aspirin 81 mg oral capsule (2 sources)Platelet Aggregation Inhibitor, Nonsteroidal Anti-inflammatory Drug Start: 55-41-2904emdv 1 mg by mouth every twenty-four hoursaspirin 81 mg oral capsule mg cap(s), Oral, q24hr, Refills(s) 0 Start Date: 02/12/25 Status: Ordered Medication Dispense Status: Completed Total Allowed Fills: 1 Fills Dispensed: 0 atorvastatin 10 mg oral tablet (17 sources)HMG-CoA Reductase InhibitorStart: 09-05-2024 End: 32-47-3213lref 1 tablet by mouth once dailyatorvastatin 10 mg Tab 10 mg = 1 tab(s), Oral, Daily, Refills(s) 0 Start Date: 02/12/25 Status: Ordered Medication Dispense Status: Completed Total Allowed Fills: 1 Fills Dispensed: 0Start: 05-31-2024 End: 59-64-1273zloq 1 tablet by mouth once daily in the eveningAtorvastatin 10 mg tablet Discontinued 0 .ROUTE .COMPLEX May 31, 2024 1:01pm September 05, 2024 6:04pm TAKE 1 TABLET BY MOUTH DAILY IN THE EVENINGStart: 05-31-2024 take 1 tablet by mouth once daily in the eveningAtorvastatin Active 0 .ROUTE .COMPLEX May 31, 2024 1:01pm TAKE 1 TABLET BY MOUTH DAILY IN THE EVENINGStart: 12-27-2023 End: 06-06-7208coii 1 tablet by mouth once dailyAtorvastatin 10 mg tablet Discontinued 10 MG PO Daily December 27, 2023 12:00am May 3141:02pm Start: 45-58-1939scdd 1 tablet by mouth every twenty-four hoursAtorvastatin Calcium 10 MG 1 tablet Orally Once a day for 30 days Dec, Active hydroCHLOROthiazide 25 mg / lisinopril 20 mg oral tablet (16 sources)Thiazide Diuretic, Angiotensin Converting Enzyme InhibitorStart: 11-04-3257attfowytloyohhayfav-lisinopril 25 mg-20 mg Tab Oral, Refill(s) 0 Start Date: 02/12/25 Status: Ordered Repeat number: 1Start: 09-05-2024 End: 15-17-7158rumf 1 tablet by mouth once dailyhydrochlorothiazide-lisinopril 25 mg-20 mg Tab 1 tab(s), Oral, Daily, Refill(s) 0 Start Date: 02/12/25 Status: Ordered Medication Dispense Status: Completed Total Allowed Fills: 1 Fills Dispensed: 0Start: 05-31-2024 End: 38-10-5240ahnf 1 tablet by mouth once dailyLisinopril-Hydrochlorothiazide 20-25 mg tablet Discontinued 0 .ROUTE .COMPLEX May 31, 2024 1:01pm September 05, 2024 6:04pm TAKE 1 TABLET BY MOUTH DAILYStart: 12-27-2023 End: 08-60-7845kjub 1 tablet by mouth once dailyLisinopril-Hydrochlorothiazide 20-25 mg tablet Discontinued 1 TAB PO Daily December 27, 2023 12:00amS2023 1:02pmStart: 73-12-2134qhnt 1 tablet by mouth every twenty-four hours Lisinopril-hydroCHLOROthiazide 20-25 MG 1 tablet Orally Once a day for 30 days Dec, Activelisinopril 10 mg oral tablet (20 sources)Angiotensin Converting Enzyme InhibitorStart: 06-24-2024 End: 90-61-4146yelo 1 tablet by mouth once dailylisinopril 10 mg Tab 10 mg = 1 tab(s), Oral, Daily, Refills(s) 0 Start Date: 02/12/25 Status: Ordered Medication Dispense Status: Completed Total Allowed Fills: 1 Fills Dispensed: 0Start: 05-31-2024 End: 67-92-4347vkql 1 tablet by mouth once dailyLisinopril 10 mg tablet Discontinued 0 .ROUTE .COMPLEX June 05, 2024 4:34pm June 24, 2024 10:45am TAKE 1 TABLET BY MOUTH DAILYStart: 12-27-2023 End: 90-09-3784fmcr 1 tablet by mouth once dailyLisinopril 10 mg tablet Discontinued 10 MG PO Daily December 27, 2023 12:00am May 31, 2024 1:02pm Start: 57-73-0115gfus 1 tablet by mouth every twenty-four hoursLisinopril 10 MG 1 tablet Orally Once a day for 30 days Dec, ActiveMulti Vitamin+ oral liquid (1 source)Start: 67-69-3491Cogjj Vitamin+ oral liquid Refill(s) 0 Start Date: 02/12/25 Status: Ordered Repeat number: 1tamsulosin hydrochloride 0.4 mg oral capsule (6 sources)alpha-Adrenergic BlockerStart: 02-12-2025 End: 15-41-6995lhog 1 capsule by mouth once daily for dizzinesstamsulosin 0.4 mg Cap 0.4 mg = 1 cap(s), Oral, Daily, Monitor for lightheadedness or dizziness., # 30 cap(s), Refills(s) 11, Pharmacy: [facility]/pharmacy #[id number] Start Date: 02/12/25 Status: Ordered Medication Dispense Status: Completed Quantity: 30.0 Unit: cap(s) Total Allowed Fills: 12 Fills Dispensed: 0 Completed/Discontinued Medications MedicationDrug Class(es)DatesSig (Normalized)Sig (Original)levoFLOXacin 500 mg oral tablet (6 sources)Quinolone AntimicrobialStart: 06-26-2024 End: 69-44-9355afkc 1 tablet by mouth once dailyLevofloxacin 500 mg tablet Discontinued 500 MG PO Daily June 28, 2024 4:19pm December 8:59amSuprep Bowel Prep Kit 17.5-3.13-1.6 GM/180ML (3 sources)Start: 41-62-9225lysa 177 mL by mouth twice dailySuprep Bowel Prep Kit 17.5-3.13-1.6 GM/180ML 177ml bottle at 4pm and 11pm Orally Twice a day for 1 day(s) Oct, Not-TakingStart: 35-66-1482nkda 177 mL by mouth twice daily Suprep Bowel Prep Kit 17.5-3.13-1.6 GM/180ML 177ml bottle at 4pm and 11pm Orally Twice a day for 1 day(s) Oct, Active Problems Active Problems Problem ClassificationProblemDateDocumented DateEpisodic/ChronicDiabetes mellitus without complication (12 sources)Impaired fasting glycemia; Translations: [Impaired fasting glucose] EpisodicDisorders of lipid metabolism (16 sources)Hypercholesterolemia; Translations: [Pure hypercholesterolemia, unspecified]Onset: 20-12-3751RqoebnuNcmtxqnbow disorders (12 sources)Gastro-esophageal reflux disease with esophagitis; Translations: [Gastroesophageal reflux disease with esophagitis without hemorrhage]12-27-2023 ChronicEssential hypertension (16 sources)Essential hypertension; Translations: [Essential (primary) hypertension]Onset: 17-44-8680DstltgaLyikyvqoualfm symptoms and ill-defined conditions (5 sources)Delay when starting to pass urine; Translations: [Hesitancy of micturition]EpisodicHyperplasia of prostate (15 sources)Lower urinary tract symptoms due to benign prostatic hypertrophy; Translations: [Benign prostatic hyperplasia with lower urinary tract symptoms] Onset: 11-67-8127UgqttotAkeiyvobtfnt breast conditions (7 sources)Hypertrophy of breast; Translations: [Gynecomastia]Onset: 11-30-2021 EpisodicOther diseases of veins and lymphatics (7 sources)Peripheral venous insufficiency; Translations: [Venous insufficiency (chronic) (peripheral)]80-54-2456PiagpktzDmrde diseases of veins and lymphatics (5 sources)Venous insufficiency (chronic) (peripheral); Translations: [Venous (peripheral) insufficiency, unspecified]EpisodicOther screening for suspected conditions (not mental disorders or infectious disease) (15 sources)Encounter for screening for malignant neoplasm of prostate; Translations: [Encounter for screening for malignant neoplasm of colon]Onset: 83-09-1051GswcvxnxYvduuwi on above:PSA:2.99 - 06/2021, 3.11 - 06/2022, 3.51 - 06/2023, 4.72 - 06/2024, 3.70 (16.5%) - 07/2024Sprains and strains (1 source)Strain of muscle(s) and tendon(s) of the rotator cuff of right shoulder, initial encounterEpisodic Past or Other Problems Problem ClassificationProblemDateDocumented DateEpisodic/ChronicEsophageal disorders (2 sources)Esophageal disorders Results Test NameValueInterpretationReference RangeFacilityUrology Office/Clinic Noteon [id number] Office/Clinic NoteUrology Office/Clinic Note Chief Complaint Pt here for follow up HPI Staff PO MRI fusion bx 06/26/25, review pathology report Previous DX: BPH w/urinary obstruction, elevated PSA Previous PSA 12/27/24 - 4.57 Start Flomax 0.4 mg qd Pt does not think flomax is helping IPSS: 16 Pt denies pain/burning denies visible blood denies flank pain Pt reports that he is doing well History of Present Illness Tests reviewed: reviewed UA, pathology report. I have reviewed the previous health record information and history for this patient from Dr. Arana. I have reviewed and verified the staff HPI to be accurate for this encounter. Review of Systems PHQ Score Initial Depression Screen Score: 0 SCORE ROS - Provider Constitutional: denies weight loss, denies hot flashes. Eyes: denies eye problems. Gastrointestinal: denies nausea, denies vomiting. Cardiovascular: denies chest pain or angina. Integumentary: no dryness Musculoskeletal: denies musculoskeletal symptoms. ENMT: denies otolaryngeal symptoms. Respiratory: no shortness of breath. Heme/Lymph: denies easy bleeding tendency, denies easy bruising tendency. Psychiatric: no confusion, no anxiety. Genitourinary: See HPI. Physical Exam Vitals & Measurements T: 36.8 ???C(Tympanic) HR: 60(Peripheral) RR: 16 BP: 128/66 HT: 186 cm HT: 73 in WT: 111.7 kg WT: 246.256 lb BMI: 32.29 General Appearance: alert, no distress, well nourished, well developed male. Assessment/Plan Gwen is a 64 yo M initially referred y Dr. Riaz Day for elevated PSA. Requested GPC due to his daughter recommending him since she works at [employer]. Not on AC. Accompanied by daughter today. 1. Elevated PSA (R97.20: Elevated prostate specific antigen [PSA]) PSA 05/23/17 - 2.49 07/01/17 - 2.06 12/19/17 - 2.66 09/21/18 - 3.56 10/25/19 - 2.86 06/19/21 - 2.99 06/24/22 - 3.11 07/29/24 - 3.7 & 16.5% 12/27/24 - 4.57 Does report that his primary care has treated pt for possible prostatitis a few different times dueto increase in PSA. He also mentions that a few times a year he will develop testicular swelling. Pt will take NSAIDs and swelling eventually improves. Very unlikely that this is contributing to PSA elevation. SONIDO 02/12/25 ~40g, benign. Moderately sized prostate. MRI of prostate 05/28/25 [facility] [place] Focal area of T2 hypodensity involving the posterior aspect of the R peripheral zone at the level of the mid gland measuring 10 x 5 mm with associated restricted diffusion and low ADC value. No gross extracapsular extension seen. Pros vol 85 mL. TRUS bx 06/26/25 - neg The pathology report was reviewed with the patient in detail today. There is no evidence of malignancy and no further evaluation of the tissue removed is planned. All questions were answered and the report discussed in terms that the patient could understand. Discussed possible etiologies of PSA elevation. Discussed Confirm MDx for pt and his daughter to consider. Recommend following PSA closely.pt agreeable to plan. -Tissue from 06/26/25 bx sent for Confirm MDx -Follow up in 4 mos w/ PSAFT. 2. BPH with urinary obstruction (N40.1: Benign prostatic hyperplasia with lower urinary tract symptoms) UA today shows small blood. Denies gross hematuria. IPSS 16 (14). Taking Flomax 0.4 mg qd. Does notfeel consistent improvement on Flomax. Still c/o weak stream, taking forever to go , stream intermittency. Denies SE. Discussed increasing Flomax to 0.4 mg bid. If experiences SEs, decrease back to qd. Pt agreeable. -Increase Flomax 0.4 mg bid, monitor for lightheadedness or dizziness. pt to call for refills. Patient is here with his today. They are happy to hear that his biopsy is negative for any evidence of malignancy. Possible etiology of the PSA elevation has been discussed. He does have a large prostate at about 85 g. Continued close follow-up is indicated. Will see him back in about 4 months with a repeat free and total PSA. We also discussed his BPH symptomatology. Not much help with the 0.4 mg dosing of the tamsulosin sowe will increase to 0.8 mg with possible side effects discussed. Follow-up 4 months. Follow-up With When Contact Information SUMIT VU, Reed Amaya, URL [address] [place] [id number]- Additional Instructions: 4 mos w/ PSAFT Patient Education Benign Prostatic Hyperplasia IPatt, personally scribed for Dr. Arana on 07/15/2025 10:00:44. . Documentation recorded by the scribePatt, accurately reflects the services(s) I performed and decisions made by me. Authenticated by Dr. Arana on 07/15/2025 10:01:57. Portions of this record may have been created with voice recognition artificial intelligence software, specifically Hub[employer], [place] and or Vid[employer]. Substitutions may have occurred due to the inherent limitations of voice recognition and artif (more content not included)...Normal [facility] CenterComment on above:Result Comment: Electronically Signed By: Reed ARANA MD\.br\Date and Time Signed: 07/15/25 10:03 EST\.br\Electronically Co-Signed By: Patt Kapadia\.br\Date and Time Co- Signed: 07/15/25 10:01 ESTSurgical Pathology Reporton [id number] Pathology ReportFish - [address] [place] [address]- Surgical Pathology Report Collected Date/Time: 06/26/2025 10:45 EDT Pathologist: Carlos VU PhD, Julia Franklin Received Date/Time: 06/26/2025 11:42 EDT Reed ARANA MD, MD, Gregory P 07 Surgical Pathology Report - 07/02/2025 12:06 EDT - Auth (Verified) Final Diagnosis A: ??PROSTATE, RIGHT MEDIAL BASE, NEEDLE BIOPSY: - BENIGN PROSTATIC TISSUE. B: ??PROSTATE, RIGHT MEDIAL MID, NEEDLE BIOPSY: - BENIGN PROSTATIC TISSUE. C: ??PROSTATE, RIGHT MEDIAL APEX, NEEDLE BIOPSY: - BENIGN PROSTATIC TISSUE. D: ?PROSTATE, RIGHT LATERAL BASE, REGION OF INTEREST, BIOPSY: - BENIGN PROSTATIC TISSUE. E: ?PROSTATE, RIGHT LATERAL MID, NEEDLE BIOPSY: - BENIGN PROSTATIC TISSUE. F: ?PROSTATE, RIGHT LATERAL APEX, NEEDLE BIOPSY: - BENIGN PROSTATIC TISSUE. G: ?PROSTATE, LEFT MEDIAL BASE, NEEDLE BIOPSY: - BENIGN PROSTATIC TISSUE. H: ?PROSTATE, LEFT MEDIAL MID, NEEDLE BIOPSY: - BENIGN PROSTATIC TISSUE. I: ?PROSTATE, LEFT MEDIAL APEX, NEEDLE BIOPSY: - BENIGN PROSTATIC TISSUE. J: ?PROSTATE, LEFT LATERAL BASE, NEEDLE BIOPSY: - BENIGN PROSTATIC TISSUE. K: ?PROSTATE, LEFT LATERAL MID, NEEDLE BIOPSY: - BENIGN PROSTATIC TISSUE. L: ?PROSTATE, LEFT LATERAL APEX, NEEDLE BIOPSY: - BENIGN PROSTATIC TISSUE. (Electronic Signature) Julia Gonzalez MD PhD 07/02/2025 12:06 Diagnosis Comment C and D: Immunostain HMW cytokeratins /p63/ P504S (PIN4 immunostain) reviewed, supporting the rendered diagnosis. Clinical Information Elevated PSA Pre-Op Diagnosis: Elevated PSA Procedure: Transrectal ultrasound prostate biopsy Post-Op Diagnosis: Elevated PSA Specimen(s) Received A. Right medial base prostate Surgical Pathology Report Collected Date/Time: 06/26/2025 10:45 EDT Pathologist: Carlos VU PhD, Julia Franklin Received Date/Time: 06/26/2025 11:42 EDT SUMIT VU, Reed ARANA MD, Reed Amaya Specimen(s) Received B. Right medial mid prostate C. Right medial apex prostate D. Right lateral base prostate E. Right lateral mid prostate F. Right lateral apex prostate G. Left medial base prostate H. Left medial mid prostate I. Left medial apex prostate J. Left lateral base prostate K. Left lateral mid prostate L. Left lateral apex prostate Gross Description A: The specimen is received in formalin, labeled with patient name, number and right medial base prostate and consists of one cylindrical segment of light soft tissue which measures 1.0 cm in length. The specimen is entirely submitted. B: ??The specimen is received in formalin, labeled with patient name, number, and right medial mid prostate and consists of one cylindrical segment of light soft tissue which measures 1.0 cm in length. The specimen is entirely submitted. C: ?The specimen is received in formalin, labeled with patient name, number, and right medial apex prostate and consists of one cylindrical segment of light soft tissue which measures 0.9 cm in length. The specimen is entirely submitted. D: ?The specimen is received in formalin, labeled with patient name, number, and right lateral base prostate region of interest and consists of four cylindrical segments of light soft tissue which measure 1.0, 1.0, 1.5, and 0.8 cm in length. The specimen is entirely submitted. E: ?The specimen is received in formalin, labeled with patient name, number, and right lateral mid prostate and consists of one cylindrical segment of light soft tissue which measures 1.4 cm in length. The specimen is entirely submitted. F: ?? The specimen is received in formalin, labeled with patient name, number, and right lateral apex prostate and consists of one cylindrical segment of light soft tissue which measures 0.8 cm in length. The specimen is entirely submitted. G: ??The specimen is received in formalin, labeled with patient name, number, and left medial base prostate and consists of one cylindrical segment of light soft tissue which measures 1.5 cm in length. The specimen is entirely submitted. ?? . H: ?The specimen is received in formalin, labeled with patient name, number, and left medial mid prostate and consists of one cylindrical segment of light soft tissue which measures 1.0 cm in length. The specimen is entirely submitted. I: The specimen is received in formalin, labeled with patient name, number, and left medial apex prostate and consists of one cylindrical segment of light soft tissue which measures 1.0 cm in length. The specimen is entirely submitted. J: The specimen is received in formalin, labeled with patient name, number, and left lateral base prostate and consists of one cylindrical segment of ilght soft tissue which measures 1.0 cm in length. The specimen is entirely submitted. K: The specimen is received in formalin, labeled with patient name, number, and left lateral mid prostate and consist (more content not included)...[facility] CenterComment on above:Performed By: #### [id number] #### [facility] [address] [place], [place] [address]Hsamkutnt Instructionson [id number] Instructions Discharge Instructions GWEN MCBRIDE :1960 Visit Date:06/26/2025 Inpatient Discharge Instructions Your Care Team Admitting Physician - Reed ARANA MD Referring Physician - Reed ARANA MD What to do next Instructions From Your Doctor Event Name Event Result Discharge Activity Arrange for a responsible adult supervision for 24 hours, Expect mild pain, Expect minimal amount of drainage and/or bleeding Discharge Restrictions No driving, Do not operate machinery or tools, Do not make important decisions for 24 hours, Do notdrink alcoholic beverages for 24 hours Discharge Diet(s) Regular Call Your Doctor For Persistent or heavy bleeding, Temperature above 101.5 degrees Discharge Instructions Discharge Instructions Previously Scheduled Follow-Up Appointments Monday 9:30 AM EST With: Reed ARANA MD Where: [facility] [address] [place] [address]- New Follow Up Appointments after Discharge Follow Up with Reed ARANA When: Comments: Drink plenty of fluids to keep the urine clear. No strenuous activity for at least 48 hours. Some general discharge instructions have been provided. Please call the office to be sure you have a follow-up appointment within the next 2 weeks or so. Please finish your antibiotics. Where: [facility] [address] [address]- Business (1) Medications What How Much When Instructions Next Dose Unchanged aspirin (aspirin 81 mg oral capsule) By Mouth Every 24 hours Unchanged atorvastatin (atorvastatin 10 mg Tab) 1 Tablets By Mouth Every day Unchanged ciprofloxacin (Cipro 500 mg Tab) 1 Tablets By Mouth 2 times a day start 3 days prior to procedure Unchanged hydrochlorothiazide-lisinopril (hydrochlorothiazide-lisinopril 25 mg- 20 mg Tab) 1 TabletsBy Mouth Every day Unchanged lisinopril (lisinopril 10 mg Tab) 1 Tablets By Mouth Every day Unchanged tamsulosin (tamsulosin 0.4 mg Cap) 1 Capsules By Mouth Every day Monitor for lightheadedness or dizziness. Education Materials [facility] [place], [place] Post-Operative Instructions for Prostate Biopsy *Even though there are no visible incisions, multiple prostate biopsies have been taken through therectum and you need to follow some instructions to minimize the risks of bleeding *You may see some blood in your urine and stool for up to 1 week (and blood in the semen for several months) DIET *You may resume your normal diet, but you may want to avoid alcohol, carbonated drinks, caffeine, and spicy foods, which may increase the irritation from the surgery and the catheter. *Drink plenty of water to keep the urine clear. ACTIVITY *You should limit any physical activity for about 48 hours *No heavy lifting or straining (10 pound limit) *No driving a car and limit long car rides for 2 days *No strenuous exercise *No sexual intercourse until this is discussed with your doctor BOWELS Try to keep your bowel movements soft to minimize straining to have a bowel movement. You may use astool softener or over the counter laxative if needed. Difficult bowel movements may lead to straining and bleeding from the prostate. MEDICATIONS *You may resume your home medications unless instructed otherwise *Hold aspirin, ibuprofen, Coumadin (warfarin) and other blood thinners for about two days or until there is no active bleeding unless otherwise instructed *Finish the antibiotic which you have already started Things to watch for which would require an Emergency Room visit or call 911: (this is not a complete list) *Persistent or heavy bleeding or blood clots from the rectum or in the urine *Inability to urinate *Fever over 101.5 degrees Fahrenheit, with or without chills *Severe drug reactions with itching, hives, or rash *Tenderness or swelling of the calves, chest pain, or shortness of breath Please call the office to arrange for your post-operative appointment within two weeks ([phone] or [phone]) Common Emergency Awareness Tips IS IT A STROKE? Act FAST and Check for these signs: FACE Does the face look uneven? ARM Does one arm drift down? SPEECH Does their speech sound strange? TIME Call at any sign of stroke Heart Attack Signs Chest discomfort: Most heart attacks involve discomfort in the center of the chest and lasts more than a few minutes, or goes away and comes back. It can feel like uncomfortable pressure, squeezing, fullness or pain. Discomfort in upper body: Symptoms can include pain or discomfort in one or both arms, back, neck, jaw or stomach. Shortness of breath: With or without discomfort. Other signs: Breaking out in a cold sweat, nausea, or lightheaded. Remember, MINUTES DO MATTER. If you exper (more content not included)...Normal [facility] CenterComment on above:Result Comment: Electronically Signed By: Peggy Mcintyre\Date and Time Signed: 06/26/25 11:34EDTInpatient Patient Summaryon [id number] Patient SummaryInpatient Patient Summary [address] [address] [facility] Clinical Discharge Instructions PERSON INFORMATION Name: GWEN [facility] Admitting Physician: Reed ARANA MD Attending Physician: Reed ARANA MD PCP: JOSE DAY DO Discharge Diagnosis: Comment: PATIENT EDUCATION INFORMATION Instructions: Sumit- Post-Op Instructions for Prostate Biopsy (Custom) Medication Leaflets: Follow up: With: Address: When: Reed SUMIT [address], [address], [employer] [place] [id number] [facility] (1) Comments: Drink plenty of fluids to keep the urine clear. No strenuous activity for at least 48 hours. Some general discharge instructions have been provided. Please call the office to be sure you have a follow-up appointment within the next 2 weeks or so. Please finish your antibiotics. Type Location Start Finish State U[place] Office Visit [facility] Avery 07/15/2025 9:30 AM 07/15/2025 9:45 AM Confirmed MEDICATION LIST Medications to Continue with No Changes Other Medications aspirin (aspirin 81 mg oral capsule) By Mouth every 24 hours. atorvastatin (atorvastatin 10 mg Tab) 1 Tablets By Mouth every day. ciprofloxacin (Cipro 500 mg Tab) 1 Tablets By Mouth 2 times a day. start 3 days prior to procedure.Refills: 0. hydrochlorothiazide-lisinopril (hydrochlorothiazide-lisinopril 25 mg-20 mg Tab) 1 Tablets By Mouth every day. lisinopril (lisinopril 10 mg Tab) 1 Tablets By Mouth every day. tamsulosin (tamsulosin 0.4 mg Cap) 1 Capsules By Mouth every day. Monitor for lightheadedness or dizziness.. Refills: 11. Comment:[facility] Intraoperative Recordon [id number] OR Intraoperative RecordMain OR Intraoperative Record IntraOp Document Type FT Summary Primary Physician: Reed ARANA MD Finalized Date/Time: 06/26/25 13:36:28 Pt. Name: GWEN [facility]/Sex: 1960 Male Med Rec #: [id number] Physician: Reed ARANA MD Financial #: [id number] Pt. Type: A Room/Bed: [facility] Admit/Disch: 06/26/25 09:10:25 - 06/26/25 12:55:00 Institution: Case Times FT Entry 1 Patient Times In Room 06/26/25 10:55:00 Out Room 06/26/25 11:16:00 Procedure Times Start 06/26/25 11:01:00 Stop 06/26/25 11:14:00 Anesthesia Times Start 06/26/25 10:55:00 Stop 06/26/25 11:16:00 Last Modified By: Gilma Zaragoza RN 06/26/25 11:16:36 Case Attendance FT Entry 1 Entry 2 Entry 3 Case Attendee Efe MARTINEZ, Severo ARANA MD, Gilma Oconnor RN Role Performed PERMASTONE APPLICATOR Surgeon - Primary Computer Numerical Control Grinder - Primary Time In 06/26/25 10:55:00 06/26/25 11:00:00 06/26/25 10:55:00 Time Out 06/26/25 11:16:00 06/26/25 11:15:00 06/26/25 11:16:00 Procedure TRANSRECTAL ULTRASOUND TRANSRECTAL ULTRASOUND TRANSRECTAL ULTRASOUND PROSTATE W/ BX(.) PROSTATE W/ BX(.) PROSTATE W/ BX(.) Comments DR. MENDOSA SUPERVISING Last Modified By: Nik RN, Gilma Zaragoza RN, Gilma Zaragoza RN, Gilma Christie 06/26/25 11:16:37 06/26/25 11:16:37 06/26/25 11:16:37 Entry 4 Entry 5 Case Attendee Lam ALICIA, Jose Mario Role Performed Scrub - Primary Staff - Other Time In 06/26/25 10:55:00 06/26/25 10:55:00 Time Out 06/26/25 11:16:00 06/26/25 10:59:00 Procedure TRANSRECTAL ULTRASOUND TRANSRECTAL ULTRASOUND PROSTATE W/ BX(.) PROSTATE W/ BX(.) Comments Last Modified By: Nik RN, Gilma Zaragoza RN, Gilma Christie 06/26/25 11:16:37 06/26/25 11:16:37 General Comments: TOAN RAMILA PRESTO MEDICAL REP PRESENT FOR THIS CASE. RADHA LANG 3RD YEAR MEDICAL STUDENT PRESENT FOR THIS CASE. Perioperative Protocols FT Pre-Care Text: Implements protective measures prior to operative or invasive procedure, confirms identity before the operative or invasive procedure, verifies operative procedure, surgical site, and laterality Entry 1 Procedure(s) TRANSRECTAL ULTRASOUND Patient Identity Birthday, ID Band PROSTATE W/ BX(.) Verified (select at Check, Patient least 2): Participation Consents / H and P Anesthesia Consent, Operative Site N/A Verified H&P, Surgery/Procedure Marking Verified Consent Surgical Site Yes Laterality Verified n/a Verified Procedure Verified Yes Correct Patient Yes Position Verified Availability Equipment, Medication Prep Dry n/a Verified (If Applicable) PreOp Antibiotic Yes Time Out Severo Wilks CRNA, Given Participants Reed ARANA MD, Ott RN, Leann E, Green CST, Stephanie L Time Out Complete 06/26/25 11:00:00 Outcomes Met? Yes Last Modified By: Gilma Zaragoza RN 06/26/25 11:00:57 Post-Care Text: The patient is free from signs and symptoms of injury caused by extraneous objects Allergy Information FT Pre-Care Text: Verifies allergies Entry 1 Allergies Reviewed? Yes Allergies Reviewed Self/Patient With Outcomes Met? Yes Last Modified By: Gilma Zaragoza RN 06/26/25 10:58:03 Post-Care Text: The patient received appropriate medication(s) safely administered during the perioperative period Surgical Procedures FT Entry 1 Procedure Description Procedure TRANSRECTAL ULTRASOUND Modifiers . PROSTATE W/ BX Surgeon Description MRI FUSION GUIDED TRUS BIOPSY Primary Procedure Yes Primary Surgeon Reed ARANA MD Start 06/26/25 11:01:00 Stop 06/26/25 11:14:00 Anesthesia Type General Surgical Service Urology Wound Class 2 - Clean-Contaminated Last Modified By: Gilma Zaragoza RN 06/26/25 11:14:57 General Case Data FT Pre-Care Text: Classifies surgical wound, implements aseptic technique, initiates traffic control Entry 1 Case Information OR OR 5 FT Case Level Level 2 Wound Class 2 - Clean-Contaminated Specialty Urology ASA Class 2 Preop Diagnosis ELEVATED PSA Postop Same As Preop Yes Postop Diagnosis ELEVATED PSA Outcomes Met? Yes Last Modified By: Gilma Zaragoza RN 06/26/25 10:59:03 Post-Care Text: The patient is free from signs and symptoms of infection Skin Assessment (Pre Procedure) FT Pre-Care Text: Implements protective measures to prevent skin/ tissue injury due to thermal or mechanical sources Evaluates for signs and symptoms of physical injury to skin and tissue Entry 1 Skin Integrity Intact, [place], Warm, & Skin Abnormality No Dry Outcomes Met? Yes Last Modified By: Gilma Zaragoza RN 06/26/25 10:59:10 Post-Care Text: The patient is free from signs and symptoms of injury caused by extraneous objects Patient Positioning FT Pre-Care Text: Identifies physical alterations that require additional precautions for procedure-specific positioning, verifies presence of prosthetics or corrective devices, positions the patient, evaluates the patient for signs and symptoms of injury as a result of positioning En (more content not included)...[facility] PACU I Recordon [id number] OR PACU I RecordMain OR PACU I Record PACU Phase I Document Type FT Summary Primary Physician: Reed ARANA MD Finalized Date/Time: 06/26/25 12:54:22 Pt. Name: GWEN [facility] /Sex: 1960 Male Med Rec #: [id number] Physician: Reed ARANA MD Financial #: [id number] Pt. Type: A Room/Bed: [place] [address] Admit/Disch: 06/26/25 09:10:25 - 06/26/25 12:55:00 Institution: Case Times PACU I FT Pre-Care Text: Identifies barriers to communication and implements measures to provide psychological support Develops individualized plan of care, and ensures continuity of care Maintains patient's dignity and privacy, and maintains patient confidentiality Identifies and reports philosophical, cultural, and spiritual beliefs and values Identifies individual values and wishes concerning care Implements aseptic technique, and administers prescribed antibiotic therapy and immunizing agents as ordered Evaluates postoperative tissue perfusion Implements thermoregulation measures, and monitors body temperature Evaluates postoperative respiratory status Evaluates postoperative cardiac status Evaluates postoperative neurological status Assesses pain control, collaborated in initiating patient-controlled analgesia and implements alternative methods of pain control Verifies allergies, administers prescribed medications and solutions, evaluates response to medications Entry 1 In PACU I 06/26/25 11:20:00 Discharge from PACU 06/26/25 11:50:00 I Outcomes Met? Yes Last Modified By: Wanda Baker RN 06/26/25 12:53:58 Post-Care Text: The patient demonstrates knowledge of the expected response to the operative or invasive procedure The patient's care is consistent with the individualized perioperative plan of care The patient's rightto privacy is maintained The patient's value system, lifestyle, ethnicity, and culture are considered, respected, and incorporated into the perioperative plan of care The patient participates in decisions affecting his or her perioperative plan of care The patient is free from signs and symptoms of infection The patient has wound/tissue perfusion consistent with or improved from baseline levels established preoperatively The patient is at or returning to normothermia at the conclusion of the immediate postoperative period The patient's respiratory function is consistent with or improved from baseline levels established preoperativelyThe patient's cardiovascular status is consistent with or improved from baseline levels established preoperatively The patient's cardiovascular status is consistent with or improved from baseline levels established preoperatively The patient demonstrates and/or reports adequate pain control throughout the perioperative period The patient received appropriate medication(s), safely administered during the perioperativeperiod Acuity Level PACU I FT Entry 1 Start Time 06/26/25 11:20:00 Stop Time 06/26/25 11:50:00 Acuity Level Acuity Level I Last Modified By: Wanda Baker RN 06/26/25 12:54:20 Finalized By: Wanda Baker RN Document Signatures Signed By: Wanda Baker RN 06/26/25 12:54No[facility] OR PACU II Recordon [id number] OR PACU II RecordMain OR PACU II Record PACU Phase II Document Type FT Summary Primary Physician: Reed ARANA MD Finalized Date/Time: 06/26/25 12:39:57 Pt. Name: GWEN [facility] /Sex: 1960 Male Med Rec #: [id number] Physician: Reed ARANA MD Financial #: [id number] Pt. Type: A Room/Bed: Admit/Disch: 06/26/25 09:10:25 - Institution: Case Times PACU II FT Pre-Care Text: Identifies barriers to communication and implements measures to provide psychological support and determines knowledge level Develops individualized plan of care, and ensures continuity of care Maintains patient's dignity and privacy, and maintains patient confidentiality Identifies and reports philosophical, cultural, and spiritual beliefs and values Identifies individual values and wishes concerning care administers prescribed antibiotic therapy and immunizing agents as ordered, Evaluates postoperative tissue perfusion Implements thermoregulation measures, and monitors body temperature Evaluates postoperative respiratory statusEvaluates postoperative cardiac status Evaluates postoperative neurological status Assesses pain control, collaborated in initiating patient-controlled analgesia and implements alternative methods of pain control Verifies allergies, administers prescribed medications and solutions, evaluates response to medications Entry 1 In PACU II 06/26/25 11:55:00 Discharge from PACU 06/26/25 12:55:00 II Outcomes Met? Yes Last Modified By: Mouna Onofre RN 06/26/25 12:39:56 Post-Care Text: The patient demonstrates knowledge of the expected response to the operative or invasive procedure The patient's care is consistent with the individualized perioperative plan of care The patient's rightto privacy is maintained The patient's value system, lifestyle, ethnicity, and culture are considered, respected, and incorporated into the perioperative plan of care The patient participates in decisions affecting his or her perioperative plan of care. The patient is free from signs and symptoms of infection The patient has wound/tissue perfusion consistent with or improved from baseline levels established preoperatively The patient is at or returning to normothermia at the conclusion of the immediate postoperative period The patient's respiratory function is consistent with or improved from baseline levels established preoperativelyThe patient's cardiovascular status is consistent with or improved from baseline levels established preoperatively The patient's neurological status is consistent with or improved from baseline levels established preoperatively The patient demonstrates and/or reports adequate pain control throughout the perioperative period The patient received appropriate medication(s), safely administered during the perioperativeperiod Finalized By: Mouna Onofre RN Document Signatures Signed By: Mouna Onofre RN 06/26/25 12:39[facility] OR Preoperative Recordon [id number] OR Preoperative RecordMain OR Preoperative Record PreOp Document Type FT Summary Primary Physician: Reed ARANA MD Finalized Date/Time: 06/26/25 11:01:37 Pt. Name: NIKHILJOSEPHRbuy Figueroa./Sex: 1960 Male Med Rec #: [id number] Physician: Reed ARANA MD Financial #: [id number] Pt. Type: A Room/Bed: [place] [address] Admit/Disch: 06/26/25 09:10:25 - Institution: Case Times PreOp FT Pre-Care Text: Verifies consent for planned procedure, identifies individual values and wishes concerning care, includes family members in perioperative teaching Entry 1 Patient Times. In Pre Surgery 06/26/25 09:10:00 Out Pre Surgery 06/26/25 11:53:00 Outcomes Met? Yes Last Modified By: Gilma Zaragoza RN 06/26/25 11:01:36 Post-Care Text: The patient participates in decisions affecting his or her perioperative plan of care Finalized By: Gilma Zaragoza RN Document Signatures Signed By: Gilma Zaragoza RN 06/26/25 11:01[facility] CenterOperative Report on [id number] ReportOperative Report Patient: GWEN [facility] Age: 65 years Sex: Male : 1960 Associated Diagnoses: None Author: Reed ARANA MD Postoperative Information Date/ Time: 06/26/2025 11:24:00 Postoperative Diagnosis: Elevated PSA Abnormal prostate MRI. Performed by: Reed Arana MD. Findings: Procedure: Transrectal ultrasound guided fusion biopsy of the prostate Anesthesia: Dr. Kennedy 2% Xylocaine jelly per rectum Indications: This is a 65-year-old male with an elevated PSA up to 4.57. He had an MRI of the prostate demonstrating an 85 g gland with a 1 cm area in the right mid aspect of the prostate which looked abnormal. Recommendation made for a targeted biopsy. He presents today for the same with the inherent risk of bleeding, infection, severe infection despite antibiotic coverage, heart and lung problems under anesthesia, among others. He wishes to proceed. He does have sequential compression devices in place and functional in the bilateral lower extremities throughout the case. He did receive intravenous antibiotics x 2 and was on oral antibiotics leading up to today's procedure as well. Full informed consent is part of the hospital record. Procedure: The patient was brought back to the operating room and a timeout is performed. All are in agreementwith the operative plan and he is identified appropriately. After the successful induction of anesthesia he is placed in a left lateral decubitus position and prepped in usual fashion. 2% Xylocaine jelly is placed per rectum. Ultrasound probe was placed and performed in the longitudinal and transverse planes. Has a very large prostate rectum. Ultrasound probe was placed and performed in the longitudinal and transverse planes. Has a very large prostate. No obvious areas of abnormality are noted in the prostatic capsule or seminal vesicles.The team from [place] performed the fusion of the previously obtained MRI onto the real-time ultrasound. The target was acquired on the right aspect of the base of the prostate laterally. 4 biopsieswere taken through this area. The rest of the prostate was then biopsied in succession on the rightbase medially and the left base both medially and laterally, followed by the right and left mid prostate both medially and laterally in the right and left apex of the prostate both medially and laterally for a total of 15 biopsies. He tolerates it well. Minimal bleeding occurred. He is transferred back to PACU in satisfactory condition, stable vital signs. Plan to be for discharge home with plans to follow-up in the office within the next 2 weeks to discuss to pathology report. Discussed all this with his family postoperatively. Final diagnosis pending histologic evaluation of the tissue obtained.. Estimated Blood Loss: 1 ml. Complications: None. Anesthesia typeNormMercy HealthComment on above:Result Comment: Electronically Signed By: Reed ARANA MD\.br\Date and Time Signed: 06/26/25 11:28 EDTOutpatient Surgery Discharge Instructionon [id number] Surgery Discharge InstructionOutpatient Surgery Discharge Instruction [place] [id number] Patient Discharge Instructions PERSON INFORMATION Name: NIKHILJOSEPHN Date of : 1960 Current Date: 06/26/2025 11:24:03 PHYSICIANS Admitting Physician: Reed ARANA MD Discharge Diagnosis: GWEN [facility] has been given the following list of follow-up instructions, prescriptions, and patient education materials: PATIENT FOLLOW-UP INFORMATION Diet: Regular Discharge Activity: Arrange for a responsible adult supervision for 24 hours, Expect mild pain, Expect minimal amount of drainage and/or bleeding Discharge Restrictions: No driving, Do not operate machinery or tools, Do not make important decisions for 24 hours, Do not drink alcoholic beverages for 24 hours Call Your Doctor For: Persistent or heavy bleeding, Temperature above 101.5 degrees IF UNABLE TO CONTACT YOUR PHYSICIAN AND YOU FEEL IT IS AN EMERGENCY, GO TO THE NEAREST EMERGENCY ROOM OR CALL 911 NIKHIL Flores, GWEN, have received the attached patient education materials/instructions and have verbalized understanding: May we do a follow up call? Yes No I was present when discharge instructions were given Patient Signature Date Clinican/Nurse Signature Date Follow up: With: Address: When: Reed ARANA [address] [place] [address], [address], [place] [id number] Business (1) Comments: Drink plenty of fluids to keep the urine clear. No strenuous activity for at least 48 hours. Some general discharge instructions have been provided. Please call the office to be sure you have a follow-up appointment within the next 2 weeks or so. Please finish your antibiotics. Type Location Start Finish State URO Office Visit [facility] Bennie 07/15/2025 9:30 AM 07/15/2025 9:45 AM Confirmed Pharmacy Information: You may receive a survey from [employer] asking you to rate your care experience. Your feedback is important and will help us understand what we do well and how we can improve the quality of care we provide to you, your loved ones and our community. It???s an honor to serve you. Thank you for choosing [facility] HERE ARE THE MEDICATION CHANGES THAT OCCURRED DURING YOUR HOSPITAL STAY Medications to Continue with No Changes Other Medications aspirin (aspirin 81 mg oral capsule) By Mouth every 24 hours. atorvastatin (atorvastatin 10 mg Tab) 1 Tablets By Mouth every day. ciprofloxacin (Cipro 500 mg Tab) 1 Tablets By Mouth 2 times a day. start 3 days prior to procedure.Refills: 0. hydrochlorothiazide-lisinopril (hydrochlorothiazide-lisinopril 25 mg-20 mg Tab) 1 Tablets By Mouth every day. lisinopril (lisinopril 10 mg Tab) 1 Tablets By Mouth every day. tamsulosin (tamsulosin 0.4 mg Cap) 1 Capsules By Mouth every day. Monitor for lightheadedness or dizziness.. Refills: 11. PATIENT EDUCATION INFORMATION Instructions: [facility] [place], [place] Post-Operative Instructions for Prostate Biopsy *Even though there are no visible incisions, multiple prostate biopsies have been taken through therectum and you need to follow some instructions to minimize the risks of bleeding *You may see some blood in your urine and stool for up to 1 week (and blood in the semen for several months) DIET *You may resume your normal diet, but you may want to avoid alcohol, carbonated drinks, caffeine, and spicy foods, which may increase the irritation from the surgery and the catheter. *Drink plenty of water to keep the urine clear. ACTIVITY *You should limit any physical activity for about 48 hours *No heavy lifting or straining (10 pound limit) *No driving a car and limit long car rides for 2 days *No strenuous exercise *No sexual intercourse until this is discussed with your doctor BOWELS Try to keep your bowel movements soft to minimize straining to have a bowel movement. You may use astool softener or over the counter laxative if needed. Difficult bowel movements may lead to straining and bleeding from the prostate. MEDICATIONS *You may resume your home medications unless instructed otherwise *Hold aspirin, ibuprofen, Coumadin (warfarin) and other blood thinners for about two days or until there is no active bleeding unless otherwise instructed *Finish the antibiotic which you have already started Things to watch for which would require an Emergency Room visit or call 911: (this is not a complete list) *Persistent or heavy bleeding or blood clots from the rectum or in the urine *Inability to urinate *Fever over 101.5 degrees Fa (more content not included)...NormalMetrohealth Parma Medical CenterBMPon [id number] gap [Moles/Vol]9 mmol/LNormal6-16[facility] CenterComment on above:Performed By: #### [id number] #### [facility] [address], [place] [address]AFG/Creat Ratio13 No LmifsTdrwbm75-25WnfbquMetrohealth Parma Medical CenterComment on above:Performed By: #### [id number] #### [facility] [address], [place] [address]Xyqkczd [Mass/Vol]10.1 mg/dLNormal8.9-11.1FHocking Valley Community HospitalComment on above:Performed By: #### [id number] #### [facility] [address], [place] [address]Olcqxjdc [Moles/Vol]104 mmol/GVpghxn104-838UflxxbMetrohealth Parma Medical CenterComment on above:Performed By: #### [id number] #### [facility] [address], [place] [address]TU1 [Moles/Vol]31 mmol/MUntcgr43-70KxxsgtMetrohealth Parma Medical Center Comment on above:Performed By: #### [id number] #### [facility] [address], [place] [address]Sjncpajhgp [Mass/Vol]1.0 mg/dLNormal0.5-1.3FHocking Valley Community HospitalComment on above:Performed By: #### [id number] #### [facility] [address], [place] [address]Sqcnexb [Mass/Vol]87 mg/gRMnubwp97-970UpsqizMetrohealth Parma Medical CenterComment on above:Performed By: #### [id number] #### [facility] [address], [place] [address]Zcppzysws [Moles/Vol]3.7 mmol/LNormal3.5-5.3FHocking Valley Community HospitalComment on above:Performed By: #### [id number] #### [facility] [address], [place] [address]Nioxwl [Moles/Vol]140 mmol/JCbtbqt610-716YcrondMetrohealth Parma Medical CenterComment on above:Performed By: #### [id number] #### [facility] [address], [place] [address]Zvdq nitrogen [Mass/Vol]13 mg/dLNormal5-21[facility] Medical CenterComment on above:Performed By: #### [id number] #### [facility] [address], [place] [address]FQT w/ Auto Diffon [id number] Absolute0.0 E9/LNormal 0.0-0.2FHocking Valley Community HospitalComment on above:Performed By: #### [id number] #### [facility] [address], [place] [address]Gtqipojan/100 WBC (Bld)0.5 %Normal0.0-2.0[facility] Parma Medical CenterComment on above:Performed By: #### [id number] #### [facility] [address], [place] [address]Brm Absolute0.2 E9/LNormal0.0-0.5FHocking Valley Community Hospital Comment on above:Performed By: #### [id number] #### [facility] [address], [place] [address]Lrilmdxiqqb/100 WBC (Bld)3.4 %Normal0.0-8.0[facility] Medical CenterComment on above:Performed By: #### [id number] #### [facility] [address], [place] [address]Lcsxcyacmph distribution width (RBC) [Ratio]13.0 %Normal 10.9-14.2FHocking Valley Community HospitalComment on above:Performed By: #### [id number] #### [facility] [address] [place] [address]Huaoiuimyd (Bld) [Volume fraction]43.9 %Hpokeg68.7-49.0[facility] Parma Medical CenterComment on above:Performed By: #### [id number] #### [facility] [address], [place] [address]Vtkmehvdlm (Bld) [Mass/Vol]15.3 g/oQRbersy52.5-17.5FHocking Valley Community HospitalComment on above:Performed By: #### [id number] #### [facility] [address] [place] [address]Lrhqw Absolute2.0 E9/LNormal1.0-4.0[facility] Comment on above:Performed By: #### [id number] #### [facility] [address] [place] [address]Jjxqdxsgvpn/100 WBC (Bld)30.8 %Hypobj51.0-50.0[facility] CenterComment on above:Performed By: #### [id number] #### [facility] [address], [place] [address]FSU (RBC) [Entitic mass]30.7 idRtjxxf12.0-34.0[facility] CenterComment on above:Performed By: #### [id number] #### [facility] [address], [place] [address]EFDZ (RBC) [Mass/Vol]34.9 g/hDHibqbn21.4-36.0[facility] CenterComment on above:Performed By: #### [id number] #### [facility] [address], [place] [address]LLM (RBC) [Entitic vol]88.2 lFDuhwpg94.0-100.0[facility] CenterComment on above:Performed By: #### [id number] #### [facility] [address], [place] [address]Iiux Absolute0.6 E9/LNormal0.2-1.0[facility] Comment on above:Performed By: #### [id number] #### [facility] [address], [place] [address]Ehgcveulu/100 WBC (Bld)9.2 %Normal4.0-14.0[facility] CenterComment on above:Performed By: #### [id number] #### [facility] [address], [place] [address]Lvwgho Absolute3.6 E9/LNormal2.0-7.5FHocking Valley Community Hospital Comment on above:Performed By: #### [id number] #### [facility] [address], [place] [address]Xagaeg Auto56.1 %Rdsmrq77.0-75.0[facility] Comment on above:Performed By: #### [id number] #### [facility] [address] [place] [address]Rnetaefu049.0 E9/YHvmcpo105.0-500.0[facility] Comment on above:Performed By: #### [id number] #### [facility] [address], [place] [address]Hcfynagp mean volume (Bld) [Entitic vol]8.5 fLNormal6.4-10.8 [facility] CenterComment on above:Performed By: #### [id number] #### [facility] [address], [place] [address]XRF6.0 E12/LNormal4.3-5.9[facility] CenterComment on above:Performed By: #### [id number] #### [facility] [address], [place] [address]PLZ0.5 E9/LNormal4.0-11.0[facility] CenterComment on above:Performed By: #### [id number] #### [facility] [address] [facility], [place], [place] [address]HB & PTTon 10-97-4157TGY Coag (PPP) [Relative time]0.96 {INR} Invalid Interpretation CodeMetrohealth Parma Medical CenterComment on above:Result Comment: INR results are specifically intended to assess patients stabilized on long-term Anticoagulation therapy suggested INR???s ???Less Intensive Anticoagulation??? 2.0 ??? 3.0 Conventional Range 3.0 ??? 4.5Performed By: #### [id number] #### [facility] [address] [facility], [place], [place] [address]JM34.8 second(s)Normal9.4-12.5FHocking Valley Community Hospital Comment on above:Result Comment: 15 days - 4 weeks 1 - 5 months 6 -11 months 1-5 years 6-10 years 11 -17 years Mean: 11.2 (9.5-12.6) Mean: 11.0 (9.7-12.8) Mean: 11.0 (9.8-13.0) Mean: 11.3 (9.9-13.4) Mean: 11.7 (10.0-14.6) Mean: 11.8 (10.0 - 14.1) Pediatric Reference ranges were obtained from a study by Destin Poole et al. prepared from 1437 samples obtained at 7 different centers using the same coagulation reagent and instrumentation as [facility]. Currently there are no coagulation studies available worldwide for children to 14 days, andno normal ranges.Performed By: #### [id number] #### [facility] [address], [place] [address]QXO32.5 second(s)Mafngc82.1-36.5FHocking Valley Community Hospital Comment on above:Result Comment: Parameter 15 days - 4 weeks 1 - 5 months 6 - 11 months 1 - 5 years 6 - 10 years 11 - 17 years PTT Mean: 35.4 (27.6-45.6) Mean: 33.5 (24.8-40.7) Mean: 32.4 (25.1-40.7) Mean: 31.6 (24.0-39.2) Mean: 31.6 (26.9-38.7) Mean: 31.0 (24.6-38.4) Pediatric Reference ranges were obtained from a study by Destin Poole et al. prepared from 1437 samples obtained at 7 different centers using the same coagulation reagent and instrumentation as [facility]. Currently there are no coagulation studies available worldwide for children to 14 days, andno normal ranges. Heparin therapeutic range (represented by Anti-Factor Xa activity of 0.2 - 0.4 U/mL) corresponds to PTT of 56.6 - 109.0 sec.Performed By: #### [id number] #### [facility] [address], [place] [address]MK with Cult Rflxon 62-95-4877Vjrau (U)Light-YellowNormalYellow [facility] CenterComment on above:Order Comment: Added by Bruno ExpertResult Comment: Microscopic readings are only performed on those samples that meet specific criteria set forth by [facility]. Performed By: #### [id number] #### [facility] [address], [place] [address]Fvdhrdx (U) [Mass/Vol]NegativeNormalNegativeMetrohealth Parma Medical CenterComment on above:Order Comment: Added by Bruno ExpertPerformed By: #### [id number] #### [facility] [address], [place] [address]Emsbftv Ql (U)NegativeNormalNegativeMet[facility]health [facility] Center Comment on above:Order Comment: Added by Bruno ExpertPerformed By: #### [id number] #### [facility] [address], [place] [address]JH BloodNegativeNormalNegDayton Osteopathic Hospital Comment on above:Order Comment: Added by Bruno ExpertPerformed By: #### [id number] #### [facility] [address], [place] [address]OK ClarityClearNormalClearMetrohealth Parma Medical CenterComment on above:Order Comment: Added by Discern ExpertPerformed By: #### [id number] #### [facility] [address], [place] [address]ZY Leuk EstNegativeNormalNegDayton Osteopathic Hospital Comment on above:Order Comment: Added by Discern ExpertPerformed By: #### [id number] #### [facility] [address], [place] [address]KW NitriteNegativeNormalNegativeMet[facility]health [facility] Comment on above:Order Comment: Added by Discern ExpertPerformed By: #### [id number] #### [facility] [address], [place] [address]SZ pH6.0Invalid Interpretation Code5.0-9.0[facility] CenterComment on above:Order Comment: Added by Bruno ExpertPerformed By: #### [id number] #### [facility] [address], [place] [address]XV ProteinNegativeNormalNegDayton Osteopathic Hospital Comment on above:Order Comment: Added by Bruno ExpertPerformed By: #### [id number] #### [facility] [address], [place] [address]UA Spec Grav1.013Invalid Interpretation Code1.005-1.030[facility] CenterComment on above:Order Comment: Added by Discern Expert Performed By: #### [id number] #### [facility] [address], [place] [address]QL UrobilinogenNegativeNormalNegativeMetrohealth Parma Medical CenterComment on above:Order Comment: Added by Bruno ExpertPerformed By: #### [id number] #### [facility] [address], [place] [address]Zauidljaksmu (U) [Mass/Vol]NegativeNormalNegativeMetrohealth Parma Medical CenterComment on above:Order Comment: Added by Bruno ExpertPerformed By: #### [id number] #### [facility] [address], [place] [address]LK with Cult Rflx SPon 13-34-6553IP Spec DescClean CatchNormal [facility] CenterComment on above:Performed By: #### [id number] #### [facility] [address], [place] [address]vZNBid 59-89-8047hGKD67 mL/min/1.73 b2Mxbgug>=59[facility] InstituteComment on above:Performed By: #### [id number] #### [facility] [address], [place] [address]EVMYN XRay CREon 02-29-1389DLXZI GFR>60.0NormalThKootenai Health Physician GroupComment on above:Result Comment: PERFORMED BY: [place] [address] PATHOLOGIST ROTARY SHEAR WORKER HELPER TAMMY VAZQUEZ M.D.Performed By: #### ISCRE #### [place] [address] USAMR prostate wo/w conon 14-61-9543ZY prostate wo/w con [facility] Main [place] [address] [place] [address] MRI Report Signed Patient: Gwen Mcbride MR#: [id number] : 1960 Acct:[id number] Age/Sex: 65 / M ADM Date: 05/28/25 Loc: Room: Type: [facility] Attending Dr: Reed Arana MD Copies to: Reed Arana MD Ordering Provider: Reed Arana MD Date of Service: 05/28/25 MR/MR prostate [...] recommended. Impression dictated by: Rolando Rodriguez Jr., D.O. 05/28/2025 2:58 PM Dictation Location: [place] [address] Transcribed By: [facility] 05/28/25 1458 Dictated By: Rolando Rodriguez Jr, DO 05/28/25 1453 Signed By: 05/28/25 1458[facility] Physician GroupNorthern Cochise Community Hospitaletic resonance imaging reportOrdered By: Rolando Rodriguez on 60-28-6173Ewogq reportMER[facility] Main [place] [address] [place] [address] MRI Report Signed Patient: Gwen Mcbride MR#: [id number] : 1960 Acct:[id number] Age/Sex: 65 / M ADM Date: 5 Loc: MR Room: Type: [facility] Attending Dr: Reed Arana MD Copies to: Reed Arana MD~ Ordering Provider: Reed Arana MD Date of Service: 05/28/25 MR/MR prostate [...] peripheral zone at the level of the midgland measuring 10 x 5 mm with associated restricted diffusion and low ADC value. No gross extracapsular extension is seen. Please see series 4 image 18, series 650 image 17 and [id number] image 17 Central/Transitional Zone: BPH changes. Seminal [...] mm with associated restricted diffusion and low ADCvalue. No gross extracapsular extension is seen. Please see series 4 image 18, series 650 image 17 and [id number] image 17 PI_RADS 4. Targeting of this area on biopsy is recommended. Impression dictated by: Rolando Rodriguez Jr., Jada 05/28/2025 2:58 PM Dictation Location: [place] [address] Transcribed By: [facility] 05/28/25 145 Dictated By: Rolando Rodriguez Jr, DO 05/28/25 145 Signed By: 05/28/25 1458 [facility] HospitalNo Panel InformationOrdered By: Reed Arana on 62-89-9189Kkcdrkx Estimated GFR (eGFR)> 60.0[facility] Whole blood creatinine measurementOrdered By: Reed Arana on 05-28-2025 Creatinine [Mass/Vol]1.2 mg/dLNormal0.6-1.3FElyria Memorial Hospital Comment on above:ER/ESD physician is notified/shown all ISTAT results.Critical values may be confirmed by laboratorytesting ifdeemed necessary by ER attending doctor.Result Comment: ER/ESD physician is notified/shown all ISTAT results. Critical values may be confirmed by laboratory testing if deemed necessary by ER attending doctor.Performed By: #### ISCRE #### [facility] [address] [place] [address] USAAmbulatory Visit Summaryon 00-12-5714Myjqyzkeju Visit SummaryAmbulatory Visit Summary GWEN MCBRIDE :1960 Visit Date:02/12/2025 Ambulatory Visit Instructions Your Diagnosis Elevated PSA BPH with urinary obstruction Tests Performed MRI Pelvis (Soft Tissue) w/ + w/o contrast -- Results Pending -- Please visit your patient portal for your results or contact your primary care physician. Your Care Team Attending Physician - Reed ARANA MD Primary Care Physician - JOSE DAY DO Referring Physician - JOSE DAY DO This Is Your Medications List tamsulosin (tamsulosin 0.4 mg Cap) Contact prescribing physician if questions or concerns aspirin (aspirin 81 mg oral capsule) atorvastatin (atorvastatin 10 mg Tab) hydrochlorothiazide-lisinopril (hydrochlorothiazide-lisinopril 25 mg-20 mg Tab) lisinopril (lisinopril 10 mg Tab) multivitamin (Multi Vitamin+ oral liquid) Procedures Performed Tonsillectomy and adenoidectomy (01/02/1968). What to do next You Need to Schedule the Following Appointments Follow Up with SUMIT VU, Reed Amaya, URNoemi When: Where: [address] [place] [address] [address] [place] [address]- Medications What How Much When Instructions New tamsulosin (tamsulosin 0.4 mg Cap) 1 Capsules By Mouth Every day Refills: 11 Monitor for lightheadedness or dizziness. Pickup at [facility]/pharmacy #[id number] Unchanged aspirin (aspirin 81 mg oral capsule) By Mouth Every 24 hours Contact prescribing physician if questions or concerns Unchanged atorvastatin (atorvastatin 10 mg Tab) By Mouth Contact prescribing physician if questionsor concerns Unchanged hydrochlorothiazide-lisinopril (hydrochlorothiazide-lisinopril 25 mg- 20 mg Tab) By Mouth Contact prescribing physician if questions or concerns Unchanged lisinopril (lisinopril 10 mg Tab) By Mouth Contact prescribing physician if questions or concerns Unchanged multivitamin (Multi Vitamin+ oral liquid) Contact prescribing physician if questions or concerns Pharmacy Information [facility]/pharmacy #[id number]: [address], [place] [id number] [phone] Medications and Immunizations Administered Given influenza, unspecified formulation, SARS-CoV-2 (COVID-19) [id number] vaccine, Allergies No Known Medication Allergies Problems Ongoing - Any problem that you are currently receiving treatment for. Benign hypertension (high blood pressure) BPH with urinary obstruction Elevated PSA Essential hypertension Gastro-esophageal reflux disease with esophagitis Hypercholesterolemia Hyperlipidemia (high cholesterol) Patient Survey You may receive a survey via text or e-mail asking about your office visit. Please share your experience with us by completing your survey. We appreciate your feedback and thank you for choosing us for your care. Education Materials Benign Prostatic Hyperplasia Benign prostatic hyperplasia (BPH) is an enlarged prostate gland that is caused by the normal agingprocess. The prostate may get bigger as a man gets older. The condition is not caused by cancer. The prostate is a walnut-sized gland that is involved in the production of semen. It is located in front of the rectum and below the bladder. The bladder stores urine. The urethra carries stored urine ou t of the body. An enlarged prostate can press on the urethra. This can make it harder to pass urine. The buildup of urine in the bladder can cause infection. Back pressure and infection may progress to bladder damage and kidney (renal) failure. What are the causes? This condition is part of the normal aging process. However, not all men develop problems from thiscondition. If the prostate enlarges away from the urethra, urine flow will not be blocked. If it enlarges toward the urethra and compresses it, there will be problems passing urine. What increases the risk? This condition is more likely to develop in men older than 50 years. What are the signs or symptoms? Symptoms of this condition include: ??? Getting up often during the night to urinate. ??? Needing to urinate frequently during the day. ??? Difficulty starting urine flow. ??? Decrease in size and strength of your urine stream. ??? Leaking (dribbling) after urinating. ??? Inability to pass urine. This needs immediate treatment. ??? Inability to completely empty your bladder. ??? Pain when you pass urine. This is more common if there is also an infection. ??? Urinary tract infection (UTI). How is this diagnosed? This condition is diagnosed based on your medical history, a physical exam, and your symptoms. Tests will also be done, such as: ??? A post-void bladder scan. This measures any amount of urine that may remain in your bladder after you finish urinating. ??? A digital rectal exam. In a rectal exam, your health care provider checks your prostate by putting a lubricated, gloved finger into your rectum to feel the back of your prostate gland. This exam detects t (more content not included)... NormalDeondreer Kennedy Krieger InstituteUrology Office/Clinic Noteon 51-37-5448Ewliygt Office/Clinic NoteUrology Office/Clinic Note HPI Staff 64 year old male new patient here for elevated psa PSA 05/23/17 - 2.49 07/01/17 - 2.06 12/19/17 - 2.66 09/21/18 - 3.56 10/25/19 - 2.86 06/19/21 - 2.99 06/24/22 - 3.11 07/29/24 - 3.7 & 16.5% 12/27/24 - 4.57 Patient denies any dysuria or gross hematuria. Denies any flank or abdomen pain. Nocturia 1x History of Present Illness Tests reviewed: reviewed UA and external records. I have reviewed the previous health record information and history for this patient from external provider I have reviewed and verified the staff HPI to be accurate for this encounter. There have been no associated fever, chills, flank pain, or blood in the urine. Denies any urinary infections since last encounter. Review of Systems ROS - Provider Constitutional: denies weight loss, denies hot flashes. Eyes: denies eye problems. Gastrointestinal: denies nausea, denies vomiting. Cardiovascular: denies chest pain or angina. Integumentary: no dryness Musculoskeletal: denies musculoskeletal symptoms. ENMT: denies otolaryngeal symptoms. Respiratory: no shortness of breath. Heme/Lymph: denies easy bleeding tendency, denies easy bruising tendency. Psychiatric: no confusion, no anxiety. Genitourinary: See HPI. Physical Exam General Appearance: alert, no distress, well nourished, well developed male. Head: normocephalic . Eyes: normal orbit and globe. ENMT: normal examination of external ears. Abdomen: soft, non distended, no tenderness, no mass or organomegaly, no hernia. Genitourinary: normal scrotum, normal testes, normal urethra, normal epididymis, normal vas deferens/spermatic cord. Penis: normal shaft, normal glans. Prostate: normal prostate, estimated weight 40 gms, no hard nodule observed. Psychiatric: cooperative, affect appropriate for age, normal judgement, euthymic mood. Assessment/Plan Gwen is a 64 yo male referred by Dr. Riaz Day for elevated PSA. Requesting GPC due to his daughter recommending him since she works at [employer]. Not on AC. Portions of this record may have been created with voice recognition artificial intelligence software, specifically Hubsphere, [place] and or VidSys. Substitutions may have occurred due to the inherent limitations of voice recognition and artificial intelligence software. 1. Elevated PSA (R97.20: Elevated prostate specific antigen [PSA]) PSA 05/23/17 - 2.49 07/01/17 - 2.06 12/19/17 - 2.66 09/21/18 - 3.56 10/25/19 - 2.86 06/19/21 - 2.99 06/24/22 - 3.11 07/29/24 - 3.7 & 16.5% 12/27/24 - 4.57 He has an elevated PSA, which could indicate prostate cancer, prostate infection, prostate inflammation without infection, prostate manipulation, or benign prostate enlargement (BPH). The importance of the rate of PSA rise has also been discussed. The options for management have been discussed, including prostate biopsy versus close monitoring of the PSA over time. Continual rise in PSA since 2019. PSA fluctuated prior to that. Does report that his primary care has treated pt for possible prostatitis a few different times due to increase in PSA. He also mentions that a few times a year he will develop testicular swelling. Pt will take NSAIDs and swelling eventually improves. Very unlikely that this is contributing to PSA elevation. SONIDO ~40g, benign. Moderately sized prostate. We discussed options including PSA surveillance vs proceeding with an MRI which could lead to a biopsy if MRI returns abnormal. He elects to proceed with MRI. Pt to be called with results and next steps. Risks of biopsy discussed today. -Schedule MRI of prostate at [facility] -Will proceed with MR guided fusion biopsy if MRI is abnormal 2. BPH with urinary obstruction (N40.1: Benign prostatic hyperplasia with lower urinary tract symptoms) UA today shows trace-intact blood and trace leuks. IPSS 14. Not taking any BPH meds. C/o weak stream, taking forever to go , stream intermittency. Will provide pt with prostate pathway to review. Offered starting Flomax. Educated pt on possible SEs. Pt feels his urination warrants alpha dalila. -Start Flomax 0.4 mg qd, monitor for lightheadedness or dizziness -Determine prostate volume on MRI Overall this patient has the elevation in the PSA level. He has previously been treated a couple times with some antibiotics to see if this maneuver would decrease the PSA. Overall however over the past several years his trend is up. He agrees to proceed with an MRI of the prostate which could leadto a fusion biopsy. I discussed all this with him and he understands that this may be a procedure performed under anesthesia with its inherent risks. We then had a discussion about treatment of BPH. Will initiate alpha blockers and have warned him about the possible side effects of tamsulosin at 0.4 mg. He understands the treatment flowsheet and we could consider procedural intervention in the future,pending evaluation of t (more content not included)...[facility] County Medical CenterComment on above:Result Comment: Electronically Signed By: Reed ARANA MD\.br\Date and Time Signed: 02/12/25 14:07 EDT\.br\Electronically Co-Signed By: Kaleigh Reich\.br\Date and Time Co-Signed: 02/12/25 14:02 EDTBasophils Auto (Bld) [#/Vol]on 06-26-2024 Basophils (Bld) [#/Vol]0.0 10 3/uL0.0-0.1FElyria Memorial Hospital Basophils/100 WBC Auto (Bld)on 57-25-9737Psjelrnmp/100 WBC (Bld)0.6 %0.2-2.0 [facility] HospitalCholesterol in LDL Calc [Mass/Vol]on 06-26-2024 Cholesterol in LDL [Mass/Vol]60.0 mg/dLOhio State Harding HospitalComment on above:<100 mg/dl GOFTBMY549-046 mg/dl NEAR OR ABOVE JAPCATS605-300 mg/dl BORDERLINE SJFR737-212 mg/dl HIGH>190 mg/dl VERY HIGHCholesterol in VLDL Calc [Mass/Vol]on 12-03-0139Dvawkfeefwa in VLDL [Mass/Vol]37.2 mg/dLOhio State Harding HospitalEosinophils/100 WBC Auto (Bld)on 06-26-2024 Eosinophils/100 WBC (Bld)2.8 %0.9-7.0[facility] Erythrocyte distribution width Auto (RBC) [Ratio]on 09-58-5797Kklbusuuwgl distribution width (RBC) [Ratio]12.1 %11.0-15.0[facility] Estimated glomerular filtration rate (GFR) non- Americanon 06-26-2024 GFR/1.73 sq M.predicted among non-blacks MDRD (S/P/Bld) [Vol rate/Area] mL/min/{1.73_m2}>=60 mL/min/1.73m 2FElyria Memorial HospitalGlobulin Calc (S) [Mass/Vol]on 37-06-4931Lhrygctj (S) [Mass/Vol]3.6 g/dLOhio State Harding HospitalGlucose mean value [Mass/volume] in Blood Estimated from glycated hemoglobinon 54-25-8474Xqkpzpq glucose Estimated from glycated hemoglobin (Bld) [Mass/Vol]100 mg/dLOhio State Harding HospitalHematocrit Auto (Bld) [Volume fraction]on 61-23-5628Zcuziomhfc (Bld) [Volume fraction]42.4 %42.0-54.0[facility] HospitalHemoglobin [Mass/volume] in Bloodon 24-08-9603Edmkamrszl (Bld) [Mass/Vol]15.0 g/dL14.0-18.0[facility] HospitalLaboratory - Chemistry and Chemistry - challengeon 06-26-2024 Albumin [Mass/Vol]3.9 g/dL3.4-5.0[facility] HospitalALP [Catalytic activity/Vol]64 U/K58-421UefzgcchsOhio State Harding HospitalALT [Catalytic activity/Vol]37 U/U16-73IugydmjdzOhio State Harding HospitalAST [Catalytic activity/Vol]18 U/T97-86IxaajmodjOhio State Harding HospitalBilirubin [Mass/Vol]0.9 mg/dL0.2-1.0[facility] HospitalCalcium [Mass/Vol]9.7 mg/dL 8.5-10.1FElyria Memorial HospitalChloride [Moles/Vol]106 mmol/L98-107 [facility] HospitalCholesterol [Mass/Vol]146 mg/dL<=200Ohio State Harding HospitalCholesterol in HDL [Mass/Vol]49 mg/xW32-15KloixvfeuOhio State Harding HospitalComment on above:> or =60 mg/dl - LOW CARDIOVASCULAR RISK<40 mg/dl - HIGH CARDIOVASCULAR RISKCO2 [Moles/Vol]28.0 mmol/L21.0-32.0 [facility] HospitalCreatinine [Mass/Vol]1.02 mg/dL0.70-1.30 [facility] HospitalGFR/1.73 sq M.predicted MDRD (S/P/Bld) [Vol rate/Area]mL/min/{1.73_m2}>=60 mL/min/1.73m 2FElyria Memorial Hospital Glucose [Mass/Vol]104 mg/xW94-442StxwoepscOhio State Harding HospitalPotassium [Moles/Vol]3.8 mmol/L3.5-5.1FElyria Memorial HospitalProtein [Mass/Vol] 7.5 g/dL6.4-8.2FKettering Health Daytonodium [Moles/Vol]142 mmol/L 136-145[facility] HospitalTriglyceride [Mass/Vol]186 mg/dLHigh <=150[facility] HospitalUrea nitrogen [Mass/Vol]17.0 mg/dL7.0-18.0 [place] [facility] HospitalUrea nitrogen/Creatinine [Mass ratio]16.7 mg/mg [place] [facility] HospitalLaboratory - Hematology and Cell countson 08-79-5236DcL7y (Bld) [Mass fraction]5.1 %4.5-6.2FElyria Memorial HospitalComment on above:ADA RECOMMENDED LIMIT 4.0 - 6.0ADA THERAPEUTIC TARGET < 7.0ACTION SUGGESTED> 7.0Immature granulocytes/100 WBC (Bld)0.1 %0.0-0.5FElyria Memorial HospitalLeukocytes [#/volume] corrected for nucleated erythrocytes in Blood by Automated counon 26-73-8681GDX corrected for nucl RBC Auto (Bld) [#/Vol]6.8 10 3/uL4.0-11.0[facility] Lymphocytes Auto (Bld) [#/Vol]on 18-19-5108Pptqctxncgs (Bld) [#/Vol]1.9 10 3/uL 1.2-3.8[place] [facility] HospitalLymphocytes/100 WBC Auto (Bld)on 90-52-2967Aabqvzqpggv/100 WBC (Bld)28.3 %20.5-60.0[facility] SystemH Auto (RBC) [Entitic mass]on 42-78-0290EIU (RBC) [Entitic mass]31.6 pg 25.9-34.0[place] [facility] HospitalMCHC Auto (RBC) [Mass/Vol]on 65-83-0636EUIW (RBC) [Mass/Vol]35.4 g/zLEiif64.9-35.2FElyria Memorial HospitalMCV Auto (RBC) [Entitic vol]on 98-67-1056XCA (RBC) [Entitic vol]89.5 fL 80.0-94.0[place] [facility] HospitalMonocytes Auto (Bld) [#/Vol]on 42-78-7230Orxsgabqc (Bld) [#/Vol]0.6 10 3/uL0.3-0.8[facility] HospitalMonocytes/100 WBC Auto (Bld)on 64-47-8055Knpzfdbtq/100 WBC (Bld)8.4 % 1.7-12.0[facility] HospitalNeutrophils Auto (Bld) [#/Vol]on 22-13-6638Pvowpgqicep (Bld) [#/Vol]4.0 10 3/uL1.4-6.5FElyria Memorial HospitalNeutrophils/100 WBC Auto (Bld)on 73-77-5595Rwzkxlcrcpc/100 WBC (Bld)59.8 % 43.0-75.0[place] [facility] HospitalNo Panel Informationon 06-26-2024 Eosinophils # (Auto)0.2 10 3/uL0.0-0.7FElyria Memorial HospitalImmature Granulocyte # (Auto)0.01 10 3/uL0.00-0.03[facility] Prostate Specific Antigen Screen4.72 ng/mLHigh<=4.00[place] [facility] HospitalPlatelet mean volume Auto (Bld) [Entitic vol]on 58-83-5012Pilmgjsp mean volume (Bld) [Entitic vol]9.9 fL9.5-13.5FElyria Memorial Hospital Platelets Auto (Bld) [#/Vol]on 79-40-2758Wrdtptugb (Bld) [#/Vol]194 10 3/uL 150-450[facility] HospitalRBC Auto (Bld) [#/Vol]on 56-50-1059PLZ (Bld) [#/Vol]4.74 10 6/uL4.70-6.10[facility] Community Hospitalerum or plasma albumin/globulin mass ratioon 93-12-1975Bcvfwhn/Globulin [Mass ratio]1.1 {ratio}[facility] Community Hospitalerum or plasma anion gap determination on 71-84-6470Ekens gap [Moles/Vol]11.8 mmol/LFElyria Memorial Hospital Serum or plasma total cholesterol/high density lipoprotein (HDL) cholesterol mass lorene 17-57-0814Izqapbvejvp.total/Cholesterol in HDL [Mass ratio]3.0 {ratio}[place] [facility] HospitalComment on above:3.3 - 4.4 LOW RISK4.4 - 7.1 AVERAGE RISK7.1 - 11.0 MODERATE RISK>11.0 HIGH RISKComprehensive Metabolic Panelon 36-93-8100Gmlbgfg [Mass/Vol]4.678628 g/dLNormal3.4-5.0 g/dLNocitizens memorial healthcare [employer] Other ALP [Catalytic activity/Vol]65 U/ZWexzhm57-598 U/L [place] [employer] Other ALT [Catalytic activity/Vol]31 U/QWgeqgh08-86 U/RABBL Other Anion gap [Moles/Vol]9.2 mmol/LNRed Aril Other AST [Catalytic activity/Vol]18 U/TCkcmyp62-10 U/RABBL Other Bilirubin [Mass/Vol]0.0623222 mg/dLNormal0.2-1.0 mg/dL [facility] [employer] Other Calcium [Mass/Vol]9.2872950 mg/dLNormal8.5-10.1 mg/dL [facility] [employer] Other Chloride [Moles/Vol]104 mmol/MKmpspu05-476 mmol/LNwestern missouri mental health center [employer] Other CO2 [Moles/Vol]31.85712584 mmol/ZOwsumg46.0-32.0 mmol/LNwestern missouri mental health center [employer] Other Creatinine [Mass/Vol]0.15226462 mg/dLNormal0.70-1.30 mg/dL[place] [employer] Other Glucose [Mass/Vol]107 mg/mJCbbh37-059 mg/dL[place] [employer] Other Potassium [Moles/Vol]3.65613753 mmol/LNormal3.5-5.1 mmol/LNwestern missouri mental health center [employer] Other Protein [Mass/Vol]7.069124 g/dLNormal6.4-8.2 g/dL[place] [employer] Other Sodium [Moles/Vol]141 mmol/TYmmwqm341-840 mmol/[facility] [employer] Other Urea nitrogen [Mass/Vol]17.3350059 mg/dLNormal7.0-18.0 mg/dL[place] [employer] Other Urea nitrogen/Creatinine [Mass ratio]17.2 mg/mg[place] [employer] Other Comprehensive Metabolic Panel3.7 g/dLTake Me Home Taxi [employer] Other Comprehensive Metabolic Panel1.1Nwestern missouri mental [facility] center [employer] Other Comprehensive Metabolic Panelsee noteNorth Easton [employer] Other Comprehensive Metabolic Panel>60>=60[place] [employer] Other Lipid Panelon 36-65-4616Iycsbylisiz [Mass/Vol]128 mg/dL<=200 mg/dL[place] [employer] Other Cholesterol in HDL [Mass/Vol]46 mg/iDEbuhob59-56 mg/dL [place] [employer] Other Triglyceride [Mass/Vol]160 mg/dLHigh<=150 mg/dL[place] [employer] Other Lipid Panel50.0 mg/dL[place] [employer] Other Lipid Panel32.0 mg/dL[place] [employer] Other Lipid Panel2.8Nocitizens memorial healthcare [employer] Other PSA SCREENINGon 15-36-4737DJE SCREENING3.51 ng/mL <=4.00 ng/mLNNorthern Westchester Hospital [employer] Other CBC AUTO DIFFon 20-91-8658AVHQ #0.1 103/ulNormal 0.0-0.1[facility] [facility] HospitalComment on above:Performed By: #### CBC #### [facility] [address] [place] [address] Dr. Julia GonzalezBasophils/100 WBC (Bld)0.7 %Normal0.2-2.0[facility] Comment on above:Performed By: #### CBC #### [facility] [address] [place] [address] Dr. Julia Correa #0.2 103/ulNormal0.0-0.7The [facility] CenterComment on above: Performed By: #### CBC #### [facility] [address] [place] [address] Dr. Julia Burrellosinophils/100 WBC (Bld)2.9 %Normal0.9-7.0[facility] Comment on above:Performed By: #### CBC #### [facility] [address] [place] [address] Dr. Julia Burrellrythrocyte distribution width (RBC) [Ratio]12.6 %Dtzxvr12.0-15.[address] [facility] Hospitalment on above:Performed By: #### CBC #### [facility] [address] [place] [address] Dr. Julia GonzalezHematocrit (Bld) [Volume fraction]41.7 %Critically low42.0-54.0 The [facility] CenterComment on above:Performed By: #### CBC #### [facility] [address] [place] [address] Dr. Julia GonzalezHemoglobin (Bld) [Mass/Vol]14.4 g/lBFcolao10.0-18.0The [facility] on above:Performed By: #### CBC #### [facility] [address] [place] [address] Dr. Julia Washburn #0.02 10e3/ulNormal0.00-0.03The [facility] CenterComkarmanos cancer center on above:Performed By: #### CBC #### [facility] [address] [place] [address] Dr. Julia Washburn %0.3 %Normal0.0-0.5The [facility] on above: Performed By: #### CBC #### [facility] [address] [place] [address] Dr. Julia SaulH #2.2 103/ulNormal1.2-3.8The [facility] CenterComkarmanos cancer center on above:Performed By: #### CBC #### [facility] [address] [place] [address] Dr. Julia Hobbsmphocytes/100 WBC (Bld)31.2 %Nxywqb06.5-60.0The [facility] on above:Performed By: #### CBC #### [facility] [address] [place] [address] Dr. Julia GaUAL DIFF REQNONormalThe [facility] CenterComment on above: Performed By: #### CBC #### [facility] [address] [place] [address] Dr. Julia Watkins (RBC) [Entitic mass]31.0 sdChewow40.9-34.0The [facility] CenterComment on above:Performed By: #### CBC #### [facility] [address] [place] [address] Dr. Julia Watkins (RBC) [Mass/Vol]34.5 g/aFGuoglo61.9-35.2The [facility] CenterComment on above:Performed By: #### CBC #### [facility] [address] [place] [address] Dr. Julia Watkins (RBC) [Entitic vol]89.7 dFAejpdz19.0-94.0The [facility] CenterComment on above:Performed By: #### CBC #### [facility] [address] [place] [address] Dr. Julia Gee #0.6 103/ulNormal0.3-0.8The [facility] CenterComment on above:Performed By: #### CBC #### [facility] [address] [place] [address] Dr. Julia Ferraraocytes/100 WBC (Bld)9.0 %Normal1.7-12.0The [facility] Comment on above:Performed By: #### CBC #### [facility] [address] [place] [address] Dr. Julia Nichols #3.9 103/ulNormal1.4-6.5The [facility] CenterComment on above:Performed By: #### CBC #### [facility] [address] [place] [address] Dr. Julia Becerrautrophils/100 WBC (Bld)55.9 %Eppiaw82.0-75.0The [facility] CenterComment on above:Performed By: #### CBC #### [facility] [address] [place] [address] Dr. Julia Infantelet mean volume (Bld) [Entitic vol]9.6 fLNormal9.5-13.5The [facility] CenterComment on above:Performed By: #### CBC #### [facility] [address] [address] [address] Julia GonzalezPLT198 103/pcIsxnfi442-932Ocj [facility] CenterComment on above: Performed By: #### CBC #### [facility] [address] [address] [address] Julia GonzalezRBC4.65 106/ulCritically low4.70-6.10The [facility] CenterComment on above:Performed By: #### CBC #### [facility] [address] [place] [address] Dr. Julia GonzalezWBC6.9 103/ulNormal4.0-11.0The [facility] CenterComment on above: Performed By: #### CBC #### [facility] [address] [place] [address] Dr. Julia BourgeoisID PROFILEon 97-41-1357KGHD-HDL RATIO NORMSGrand Lake Joint Township District Memorial HospitalComkarmanos cancer center on above:Result Comment: 3.3 - 4.4 LOW RISK 4.4 - 7.1 AVERAGE RISK 7.1 - 11.0 MODERATE RISK >11.0 HIGH RISKPerformed By: #### CMP, LIPID #### [facility] [address] [place] [address] Dr. Julia Fayesterol [Mass/Vol]138 mg/dLNormal<=200[facility] Comment on above:Performed By: #### CMP, LIPID #### [facility] [address] [place] [address] Dr. Julia Fayesterol in HDL [Mass/Vol]48 mg/rWQvukhw41-15Ksp [facility] CenterComkarmanos cancer center on above:Performed By: #### CMP, LIPID #### [facility] [address] [place] [address] Dr. Julia Fayesterol in LDL [Mass/Vol]66.6 mg/dLGuernsey Memorial HospitalComkarmanos cancer center on above:Performed By: #### CMP, LIPID #### [facility] [address] [place] [address] Dr. Yilan ChangCholesterol.total/Cholesterol in HDL [Mass ratio]2.9 {ratio} NormalThe [facility] CenterComment on above:Performed By: #### CMP, LIPID #### [facility] [address] [place] [address] Dr. Julia Jain NORMAL> or = 60 mg/dl - LOW CARDIOVASCULAR RISK <40 mg/dl - HIGH CARDIOVASCULAR RISKGuernsey Memorial HospitalComment on above:Performed By: #### CMP, LIPID #### [facility] [address] [place] [address] Dr. Julia GonzalezLDL CALC NORMALSEE BELOWGuernsey Memorial HospitalComment on above:Result Comment: <100 mg/dl OPTIMAL 100 - 129 mg/dl NEAR OR ABOVE OPTIMAL 130 - 159 mg/dl BORDERLINE HIGH 160 - 189 mg/dl HIGH >190 mg/dl VERY HIGH Performed By: #### CMP, LIPID #### [facility] [address] [place] [address] Dr. Julia GonzalezTriglyceride [Mass/Vol]117 mg/dLNormal<=150[facility] Comment on above:Performed By: #### CMP, LIPID #### [facility] [address] [place] [address] Dr. Julia GonzalezVLDL CALC23.4 mg/dLNoParkview Health Bryan HospitalComment on above: Performed By: #### CMP, LIPID #### [facility] [address] [place] [address] Dr. Julia GonzalezPROF 14(COMP METB)on 03-26-8233Nivyjha [Mass/Vol]4.0 g/dLNormal 3.4-5.0The [facility] CenterComment on above:Performed By: #### CMP, LIPID #### [facility] [address] [place] [address] Dr. Julia GonzalezAlbumin/Globulin [Mass ratio]1.1 {ratio}NormalThe [facility] CenterComment on above:Performed By: #### CMP, LIPID #### [facility] [address] [place] [address] Dr. Julia De [Catalytic activity/Vol]64 U/SHxsoqn38-065Jdz [facility] CenterComment on above:Performed By: #### CMP, LIPID #### [facility] [address] [place] [address] Dr. Julia Fuller [Catalytic activity/Vol]29 U/SLsyhyl08-23Ppe [facility] CenterComment on above:Performed By: #### CMP, LIPID #### [facility] [address] [place] [address] Dr. Julia Madridon gap [Moles/Vol]9.1 mmol/LNormalThe [facility] CenterComment on above:Performed By: #### CMP, LIPID #### [facility] [address] [place] [address] Dr. Julia Walters [Catalytic activity/Vol]19 U/EBvpcii15-01Njn [facility] CenterComment on above:Performed By: #### CMP, LIPID #### [facility] [address] [place] [address] Dr. Julia GonzalezBilirubin [Mass/Vol]0.6 mg/dLNormal0.2-1.0[facility] Comment on above:Performed By: #### CMP, LIPID #### [facility] [address] [place] [address] Dr. Julia GonzalezCalcium [Mass/Vol]9.4 mg/dLNormal8.5-10.1The [facility] Comment on above:Performed By: #### CMP, LIPID #### [facility] [address] [place] [address] Dr. Julia GonzalezChloride [Moles/Vol]105 mmol/DUfifmi75-098Zzi [facility] Comment on above:Performed By: #### CMP, LIPID #### [facility] [address] [place] [address] Dr. Julia GonzalezCO2 [Moles/Vol]30.2 mmol/WFldqxl11.0-32.0The [facility] Comment on above:Performed By: #### CMP, LIPID #### [facility] [address] [place] [address] Dr. Julia GonzalezCreatinine [Mass/Vol]0.91 mg/dLNormal0.70-1.30The [facility] CenterComment on above:Performed By: #### CMP, LIPID #### [facility] [address] [place] [address] Dr. Julia BurrellGFR-AF SPANISH>60Normal>=60The [facility] CenterComment on above:Performed By: #### CMP, LIPID #### [facility] [address] [address] [address] Julia BurrellGFR-NON AF SPANISH>60Normal>=60The [facility] CenterComment on above:Performed By: #### CMP, LIPID #### [facility] [address] [place] [address] Dr. Julia GonzalezGlobulin (S) [Mass/Vol]3.7 g/dLNormalThe [facility] CenterComment on above:Performed By: #### CMP, LIPID #### [facility] [address] [place] [address] Dr. Julia GonzalezGlucose [Mass/Vol]113 mg/dLCritically eyiz56-864Jor [facility] CenterComment on above:Performed By: #### CMP, LIPID #### [facility] [address] [place] [address] Dr. Julia GonzalezPotassium [Moles/Vol]4.3 mmol/LNormal3.5-5.1The [facility] Comment on above:Performed By: #### CMP, LIPID #### [facility] [address] [place] [address] Dr. Julia GonzalezProtein [Mass/Vol]7.7 g/dLNormal6.4-8.2The [facility] Comment on above:Performed By: #### CMP, LIPID #### [facility] [address] [place] [address] Dr. Julia GonzalezSodium [Moles/Vol]140 mmol/HFzrewa480-360YivPaulding County Hospital Comment on above:Performed By: #### CMP, LIPID #### [facility] [address] [place] [address] Dr. Julia GonzalezUrea nitrogen [Mass/Vol]20.0 mg/dLCritically high7.0-18.0[facility] HospitalComment on above:Performed By: #### CMP, LIPID #### [facility] [address], [place] [address] Dr. Julia Crowell nitrogen/Creatinine [Mass ratio]22.0 mg/mgNoParkview Health Bryan HospitalComment on above:Performed By: #### CMP, LIPID #### [facility] [address], [place] [address] Dr. Julia GonzalezMG MAMM DIAGNOSTIC 3D SONIYA CADon 35-16-9550UD MAMM DIAGNOSTIC 3D SONIYA CADPatient: GWEN MCBRIDE Exam Date: 11/30/2021 : 1960 Gender:M Ordering : DR JOSE DAY D.O. Admission #: [id number] Family : Order #: [id number] CLICK HERE TO VIEW EXAM RADIOLOGY REPORT [...] neck cancer at age 67. LOCATION: [facility] BREAST COMPOSITION: Almost entirely fatty. FINDINGS: DIAGNOSTIC [...] by: Hung Llanes M.D. on 11/30/2021 at 15:34Guernsey Memorial HospitalUS BREAST LEFT LIMITEDon 35-33-5482FP BREAST LEFT LIMITEDPatient: GWEN MCBRIDE Exam Date: 11/30/2021 : 1960 Gender:M Ordering : DR JOSE DAY D.O. Admission #: [id number] Family : Order #: [id number] CLICK HERE TO VIEW EXAM RADIOLOGY REPORT [...] neck cancer at age 67. LOCATION: [facility] BREAST COMPOSITION: Almost entirely fatty. FINDINGS: DIAGNOSTIC [...] by: Hung Llanes M.D. on 11/30/2021 at 15:34[facility] Vital Signs Date TimeVital SignValuePerforming AmwcezoovEtvytjlw36-58-6311 14:42-0400Body kuqlsw774.88 cmBenjamin Ball DO Work Phone: [facility]09-24-2025 14:42-0400 Body .86 kgBenjamin Ball DO Work Phone: [facility]04-29-2025 09:01-0400 Body qbzoks398.88 cmOhio [facility]ing Hospital04-29-2025 09:010400Body mass index (BMI) [Ratio]32.9 kg/e6HgrgiirynOhio State Harding Hospital04-29-2025 09:010400Body zusgsg497.22 kgOhio State Harding Hospital04-29-2025 09:010400Diastolic blood akdjwxzp70 mm[Hg][facility] 12-31-2024 09:01-0400Heart rate90 /[facility] 12-31-2024 09:01-0400Respiratory rate12 /[facility] 12-31-2024 09:01-0400Systolic blood kdqsnpaj900 mm[Hg][facility]10-28-2024 09:21-0400Body jygmxx621.88 cmOhio State Harding Hospital10-28-2024 09:21-0400Body mass index (BMI) [Ratio]32.3 kg/w0XduhlctuoOhio State Harding Hospital10-28-2024 08:57-0400Body kdrnod976.01 kgOhio State Harding Hospital10-28-2024 08:57-0400Diastolic blood ftoxcabd594 mm[Hg] [facility]10-28-2024 08:57-0400Heart ohbq751 /min [facility]10-28-2024 08:57-0400Respiratory rate12 /min [facility]10-28-2024 08:57-0400Systolic blood lzklwqev625 mm[Hg][facility]04-26-2024 09:12-0400Body wgnaak375.18 cmOhio State Harding Hospital04-26-2024 09:12-0400Body mass index (BMI) [Ratio]37.1 kg/y5CffesccnyOhio State Harding Hospital04-26-2024 09:12-0400Body hizgpz585.55 kgOhio State Harding Hospital04-26-2024 09:12-0400Diastolic blood xiyackei01 mm[Hg][facility]04-26-2024 09:12-0400 Heart rate78 /[facility]04-26-2024 09:12-0400Systolic blood yfnhriiw004 mm[Hg][facility]10-27-2023 08:30-0400 Body ftziqo960.18 cmBenCEED Tech Other [place] [employer] Other [id number] 08:30-0400Body mass index (BMI) [Ratio] 36.68 kg/l2Lxjgeqzj Ball Other [employer] Other 10-27-2023 08:30-0400Body .23 kgBenjamin Ball Other [employer] Other 10-27-2023 08:30-0400Diastolic blood ahhlbllq98 mm[Hg] Jose Ball Other [place] [employer] Other 10-27-2023 08:30-0400Respiratory rate12 /minBenjamin Ball Other [employer] Other 10-27-2023 08:30-0400Systolic blood ujhvpdxs074 mm[Hg] Jose Ball Other [place] [employer] Other 04-28-2023 12:00-0400Body zesxbw677.18 cmBenjamin Ball Other [place] [employer] Other 04-28-2023 12:00-0400Body mass index (BMI) [Ratio] 37.02 kg/s8Ddxcjojd Ball Other [employer] Other 04-28-2023 12:00-0400Body xtmcau517.23 kgBenjamin Ball Other [employer] Other 04-28-2023 12:00-0400Diastolic blood mm[Hg] Jose Ball Other [employer] Other 04-28-2023 12:00-0400Respiratory rate12 /minBenjamin Ball Other [employer] Other 04-28-2023 12:00-0400Systolic blood beylrfrw359 mm[Hg] Jose Ball Other [place] [employer] Other Encounters Encounter DateEncounter TypeCare ProviderFacilityStart: 41-18-0409bbwyycppokchad ARANAFacility:[place]Start: 07-15-2025 End: 69-54-8869tevtawvwgoMgvtcfc P COOKFacility:[place]Start: 07-15-2025 End: 37-21-5324Ttktubg encounter procedureReed ARANA [facility] Start: 06-26-2025 End: 67-11-8164uvttfmlgdlWsoqliq P COOKFacility:FTMCStart: 06-18-2025 End: 61-62-0315sisfpckllzPwvjahr P COOKFacility:FTMCStart: 05-28-2025 End: 44-78-3072Rkwnlbp encounter procedureReed Amaya MD-[facility] Work Phone: Start: 05-28-2025 End: 60-60-8341txavwopwcgJvlqnzea Ball DO Work Phone: [facility] Work Phone: Start: 02-12-2025 End: 06-77-5146tjgbyuwiumLgnjcih P COOKFacility:EU kStart: 02-12-2025 End: 42-00-6747Lrdpkut encounter procedureReed ARANA [facility] Start: 45-17-6809lsnkihrvreYZENHUDA BALLFacility:EU [place]vueStart: 40-47-9499ujinskctjiQVYFDGIE BALLFacility:[place]vueStart: 12-31-2024 End: 24-16-4881dboothdqycGgmbhgjqmMercy [facility] Work Phone: Start: 12-31-2024 End: 03-34-0773Bbguwlm encounter procedureFirelands [facility]ician [facility] Work Phone: Start: 07-01-2024 End: 74-64-0446kywmtsietqRiepinagiMercy Health St[facility] Work Phone: Start: 07-01-2024 End: 06-80-8369Ogqokovab for general adult medical examination without abnormal findingsProMedica Fostoria Community Hospitaltart: 07-01-2024 End: 93-53-3893Zoqodzr encounter procedureSentara [facility] Work Phone: Start: 81-25-3422Defrhsr encounter statusProMedica Fostoria Community Hospitaltart: 89-52-5153Tmm-patient / Non-visitSentara Albemarle Medical Center [facility] [employer] Work Phone: Start: 12-29-2023 End: 42-87-4945krgqtiesmhFykiwrqqgProtestant [facility]acon[facility] Hospital Work Phone: Start: 12-29-2023 End: 34-86-0257Rmmogth encounter procedureSentara Albem[facility] Center [facility] Work Phone: Start: 06-30-2023 End: 61-99-8403cricuztsrqFhccrvki Ball Other [employer] Other Start: 86-94-1107Ncniuexfv for general adult medical examination without abnormal findingsBetj [facility] ClinicStart: 41-04-8336Djjxyrxl preventive med est patient 40-64yrsBenambrocio [facility] ClinicStart: 66-53-9360Acpiswnjo encounterBenulisuze Day Medical ClinicStart: 12-30-2022 End: 35-91-2641sgpcbbwmneTegxasqz Ball Other nocitizens [facility] [employer] Other Start: 52-44-7947Jennlh outpatient visit 25 minutes [facility] ClinicStart: 51-49-5272Ligeghpfv for general adult medical examination without abnormal findingsDR JOSE Irahetaue HospitalStart: 06-24-2022 End: 85-77-7301mygyiwwvvzWO JOSE DAYFacility:F1Zqeem: 06-24-2022 End: 40-19-7228Ghttlvmpg for general adult medical examination without abnormal findings JOSE DAYFacility:H5Poens: 11-30-2021 End: 78-36-6329dymnxmylxrSU JOSE SHAYFacility:H1 Procedures DateProcedureProcedure DetailPerforming ClinicianStart: 52-06-7065JSU-US fusion guided prostate biopsyMagee General Hospitalsudha Qapa Start: 98-65-4740PD prostate wo/w conMauricenambrocio Day DO Work Phone: Start: 43-37-2742PCI screeningDR JOSE DAYComment on above:Performed By: #### PSASC #### [facility] [address] [place] [address] Dr. Julia GonzalezStart: 27-00-6616Gcrntkhkzetbr and adenoidectomyMagee General HospitalSocialGO Immunizations Immunization DateImmunizationNotesCare PyijawvkAzlwhzqy76-52-3811oqihgjbax virus vaccine, unspecified formulationMagee General HospitalRemedy Systems [facility]y11-25-2024influenza, seasonal, injectable, preservative [facility]10-30-2024influenza, unspecified formulationMagee General HospitalRemedy Systems [facility] [place] 777280-27-2023influenza, injectable, quadrivalent, preservative freeJose Day Other [facility]11-03-2022SARS-CoV-2 (COVID-19) mRNA-1273 vaccineStandardized Safety [facility] [place] 777280-26-2022influenza virus vaccine, split virus (incl. purified surface antigen)Jose Day Other [employer] Other [id number] virus vaccine, unspecified formulation[facility]04-22-2022COVID-19 Vaccine Moderna - Documentation Purposes OnlyJose Day Other [facility]11-05-2021COVID-19 Vaccine Moderna - Documentation Purposes OnlyMauricerubyambrocio Day Other [facility]10-25-2021influenza virus vaccine, split virus (incl. purified surface antigen)Jose Day Other [employer] Other [id number] virus vaccine, unspecified formulation[facility]04-15-2021COVID-19 Vaccine Moderna - Documentation Purposes OnlyMauricerubyambrocio Day Other [facility]03-16-2021COVID-19 Vaccine Moderna - Documentation Purposes OnlyJose Day Other [facility]09-28-2020influenza virus vaccine, unspecified formulationGregory Qapa [facility]y10-14-2019influenza virus vaccine, unspecified formulationGregory COOK [facility]09-19-2017influenza virus vaccine, unspecified formulationGregory COOK [facility]09-19-2017tetanus and diphtheria toxoids, adsorbed, preservative free, for adult use (5 Lf of tetanus toxoid and 2 Lf of diphtheria toxoid)Joes Day Other [facility]09-30-2016influenza virus vaccine, unspecified formulationGregory Qapa [facility]09-30-2016tetanus and diphtheria toxoids, adsorbed, preservative free, for adult use (5 Lf of tetanus toxoid and 2 Lf of diphtheria toxoid)Jose Day Other [facility] Payers DatePayer CategoryPayerPolicy [id number] 2025Medicare [id number] Health [id number] [id number] 2..840.1.957874.3.57[id number] 2..840.1.727186.3.57[id number] 2..840.1.422178.3.57[id number] 2.16.840.1.552204.3.57[id number] 2.16.840.1.644683.3.57[id number] 2.16.840.1.634000.3.57[id number] 2.16.840.1.113131.3.57[id number] 2.16.840.1.820875.3.57[id number] 2...226618.3.57[id number] 2..[id number] [id number] 2...095678.3.579.2.531 Social History DateTypeDetailFacilitySex Assigned At [facility] Hospitaltart: 42-48-5490Knr Assigned At [facility] smoking status NHISUnknown if ever smokedDelaware County Hospital Work Phone: Start: 16-96-9096EcdXlwc (finding)[facility] Hospitaltart: 02-12-2025 End: 43-25-4247Uzszcih smoking statusEx-smoker (finding)[facility] Hospitalobacco smoking statusNeverExec[facility] of Regional Medical Centerexual OrientationExec[facility] Clinical Notes 12-30-2022 to 07-15-2025 Note Date & WwamReypWxdspsqa45-13-5971 Hospital Discharge instructions Patient Education 07/15/2025 09:56:32 Benign Prostatic Hyperplasia Benign Prostatic Hyperplasia Benign prostatic hyperplasia (BPH) is an enlarged prostate gland that is caused by the normal agingprocess. The prostate may get bigger as a man gets older. The condition is not caused by cancer. The prostate is a walnut-sized gland that is involved in the production of semen. It is located in front of the rectum and below the bladder. The bladder stores urine. The urethra carries stored urine ou t of the body. An enlarged prostate can press on the urethra. This can make it harder to pass urine. The buildup of urine in the bladder can cause infection. Back pressure and infection may progress to bladder damage and kidney (renal) failure. What are the causes? This condition is part of the normal aging process. However, not all men develop problems from thiscondition. If the prostate enlarges away from the urethra, urine flow will not be blocked. If it enlarges toward the urethra and compresses it, there will be problems passing urine. What increases the risk? This condition is more likely to develop in men older than 50 years. What are the signs or symptoms? Symptoms of this condition include: Getting up often during the night to urinate. Needing to urinate frequently during the day. Difficulty starting urine flow. Decrease in size and strength of your urine stream. Leaking (dribbling) after urinating. Inability to pass urine. This needs immediate treatment. Inability to completely empty your bladder. Pain when you pass urine. This is more common if there is also an infection. Urinary tract infection (UTI). How is this diagnosed? This condition is diagnosed based on your medical history, a physical exam, and your symptoms. Tests will also be done, such as: A post-void bladder scan. This measures any amount of urine that may remain in your bladder after you finish urinating. A digital rectal exam. In a rectal exam, your health care provider checks your prostate by putting a lubricated, gloved finger into your rectum to feel the back of your prostate gland. This exam detects the size of your gland and any abnormal lumps or growths. An exam of your urine (urinalysis). A prostate specific antigen (PSA) screening. This is a blood test used to screen for prostate cancer. An ultrasound. This test uses sound waves to electronically produce a picture of your prostate gland. Your health care provider may refer you to a specialist in kidney and prostate diseases (urologist). How is this treated? Once symptoms begin, your health care provider will monitor your condition (active surveillance or watchful waiting). Treatment for this condition will depend on the severity of your condition. Treatment may include: Observation and yearly exams. This may be the only treatment needed if your condition and symptoms are mild. Medicines to relieve your symptoms, including: ?Medicines to shrink the prostate. ?Medicines to relax the muscle of the prostate. Surgery in severe cases. Surgery may include: ?Prostatectomy. In this procedure, the prostate tissue is removed completely through an open incision or with a laparoscope or robotics. ?Transurethral resection of the prostate (TURP). In this procedure, a tool is inserted through the opening at the tip of the penis (urethra). It is used to cut away tissue of the inner core of the prostate. The pieces are removed through the same opening of the penis. This removes the blockage. ?Transurethral incision (TUIP). In this procedure, small cuts are made in the prostate. This lessens the prostate's pressure on the urethra. ?Transurethral microwave thermotherapy (TUMT). This procedure uses microwaves to create heat. The heat destroys and removes a small amount of prostate tissue. ?Transurethral needle ablation (TUNA). This procedure uses radio frequencies to destroy and remove a small amount of prostate tissue. ?Interstitial laser coagulation (ILC). This procedure uses a laser to destroy and remove a small amount of prostate tissue. ?Transurethral electrovaporization (TUVP). This procedure uses electrodes to destroy and remove a small amount of prostate tissue. ?Prostatic urethral lift. This procedure inserts an implant to push the lobes of the prostate away from the urethra. Follow these instructions at home: Take auia-djl-qfsijwl and prescription medicines only as told by your health care provider. Monitor your symptoms for any changes. Contact your health care provider with any changes. Avoid drinking large amounts of liquid before going to bed or out in public. Avoid or reduce how much caffeine or alcohol you drink. Give yourself time when you urinate. Keep all follow-up visits. This is important. Contact a health care provider if: You have unexplained back pain. Your symptoms do not get better with treatment. You develop side effects from the medicine you are taking. Your urine becomes very dark or has a bad smell. Your lower abdomen becomes distended and you have trouble passing urine. Get help right away if: You have a fever or chills. You suddenly cannot urinate. You feel light-headed or very dizzy, or you faint. There are large amounts of blood or clots in your urine. Your urinary problems become hard to manage. You develop moderate to severe low back or flank pain. The flank is the side of your body between the ribs and the hip. These symptoms may be an emergency. Get help right away. Call 911. Do not wait to see if the symptoms will go away. Do not drive yourself to the hospital. Summary Benign prostatic hyperplasia (BPH) is an enlarged prostate that is caused by the normal aging process. It is not caused by cancer. An enlarged prostate can press on the urethra. This can make it hard to pass urine. This condition is more likely to develop in men older than 50 years. Get help right away if you suddenly cannot urinate. This information is not intended to replace advice given to you by your health care provider. Make sure you discuss any questions you have with your health care provider. Document Revised: 03/09/2022 Document Reviewed: 03/09/2022 [employer] Patient Education 2023 [employer]. Follow Up Care 06/04/2025 14:51:02 With:SUMIT VU, Reed Amaya, URL Address: [facility] Mister Mario [place] [id number] When: Unknown Comments:4 azar marrero/ DAVION [facility] Bennie [id number] NotePatient Education Urology Benign Prostatic Hyperplasia Benign prostatic hyperplasia (BPH) is an enlarged prostate gland that is caused by the normal agingprocess. The prostate may get bigger as a man gets older. The condition is not caused by cancer. The prostate is a walnut-sized gland that is involved in the production of semen. It is located in front of the rectum and below the bladder. The bladder stores urine. The urethra carries stored urine ou t of the body. An enlarged prostate can press on the urethra. This can make it harder to pass urine. The buildup of urine in the bladder can cause infection. Back pressure and infection may progress to bladder damage and kidney (renal) failure. What are the causes? This condition is part of the normal aging process. However, not all men develop problems from thiscondition. If the prostate enlarges away from the urethra, urine flow will not be blocked. If it enlarges toward the urethra and compresses it, there will be problems passing urine. What increases the risk? This condition is more likely to develop in men older than 50 years. What are the signs or symptoms? Symptoms of this condition include: ??? Getting up often during the night to urinate. ??? Needing to urinate frequently during the day. ??? Difficulty starting urine flow. ??? Decrease in size and strength of your urine stream. ??? Leaking (dribbling) after urinating. ??? Inability to pass urine. This needs immediate treatment. ??? Inability to completely empty your bladder. ??? Pain when you pass urine. This is more common if there is also an infection. ??? Urinary tract infection (UTI). How is this diagnosed? This condition is diagnosed based on your medical history, a physical exam, and your symptoms. Tests will also be done, such as: ??? A post-void bladder scan. This measures any amount of urine that may remain in your bladder after you finish urinating. ??? A digital rectal exam. In a rectal exam, your health care provider checks your prostate by putting a lubricated, gloved finger into your rectum to feel the back of your prostate gland. This exam detects the size of your gland and any abnormal lumps or growths. ??? An exam of your urine (urinalysis). ??? A prostate specific antigen (PSA) screening. This is a blood test used to screen for prostate cancer. ??? An ultrasound. This test uses sound waves to electronically produce a picture of your prostate gland. Your health care provider may refer you to a specialist in kidney and prostate diseases (urologist). How is this treated? Once symptoms begin, your health care provider will monitor your condition (active surveillance or watchful waiting). Treatment for this condition will depend on the severity of your condition. Treatment may include: ??? Observation and yearly exams. This may be the only treatment needed if your condition and symptoms are mild. ??? Medicines to relieve your symptoms, including: ? Medicines to shrink the prostate. ? Medicines to relax the muscle of the prostate. ??? Surgery in severe cases. Surgery may include: ? Prostatectomy. In this procedure, the prostate tissue is removed completely through an open incision or with a laparoscope or robotics. ? Transurethral resection of the prostate (TURP). In this procedure, a tool is inserted through theopening at the tip of the penis (urethra). It is used to cut away tissue of the inner core of the prostate. The pieces are removed through the same opening of the penis. This removes the blockage. ? Transurethral incision (TUIP). In this procedure, small cuts are made in the prostate. This lessens the prostate's pressure on the urethra. ? Transurethral microwave thermotherapy (TUMT). This procedure uses microwaves to create heat. The heat destroys and removes a small amount of prostate tissue. ? Transurethral needle ablation (TUNA). This procedure uses radio frequencies to destroy and removea small amount of prostate tissue. ? Interstitial laser coagulation (ILC). This procedure uses a laser to destroy and remove a small amount of prostate tissue. ? Transurethral electrovaporization (TUVP). This procedure uses electrodes to destroy and remove a small amount of prostate tissue. ? Prostatic urethral lift. This procedure inserts an implant to push the lobes of the prostate awayfrom the urethra. Follow these instructions at home: ??? Take ojxd-wrg-qxvcexl and prescription medicines only as told by your health care provider. ??? Monitor your symptoms for any changes. Contact your health care provider with any changes. ??? Avoid drinking large amounts of liquid before going to bed or out in public. ??? Avoid or reduce how much caffeine or alcohol you drink. ??? Give yourself time when you urinate. ??? Keep all follow-up visits. This is important. Contact a health care provider if: ??? You have unexplained back pain. ??? Your symptoms do not get (more content not included)...[facility]10-27-2025 NoteProgress Note-Physician Patient: GWEN MCBRIDE Age: 65 years Sex: Male : 1960 Associated Diagnoses: None Author: Jorge Mendosa MD Postoperative Information Postoperative disposition: Postoperative disposition: To PACU. Optimetrix number: Optimetrix number [id number]. Anesthetic utilized: General. Health Status Allergies: Allergic Reactions (Selected) No Known Medication Allergies Physical Examination VS/Measurements Pain Assessment: Controlled. General: Awake, Appropriate. Respiratory: Adequate air exchange. Cardiovascular: Stable. Neurological Assessment Anesthetic outcome No anesthetic complications noted. Adequate pain relief. no nausea. Review / Management Condition: Stable. Plan Transfer/Discharge: Transfer/Discharge Discharge when meets criteria.[facility] CenterComment on above:Result Comment: Electronically Signed By: Jorge Mendosa MD\.br\Date and Time Signed: 06/30/25 17:16 [id number] Note Patient Education - Text [facility] [place], [place] Post-Operative Instructions for Prostate Biopsy *Even though there are no visible incisions, multiple prostate biopsies have been taken through therectum and you need to follow some instructions to minimize the risks of bleeding *You may see some blood in your urine and stool for up to 1 week (and blood in the semen for several months) DIET *You may resume your normal diet, but you may want to avoid alcohol, carbonated drinks, caffeine, and spicy foods, which may increase the irritation from the surgery and the catheter. *Drink plenty of water to keep the urine clear. ACTIVITY *You should limit any physical activity for about 48 hours *No heavy lifting or straining (10 pound limit) *No driving a car and limit long car rides for 2 days *No strenuous exercise *No sexual intercourse until this is discussed with your doctor BOWELS Try to keep your bowel movements soft to minimize straining to have a bowel movement. You may use astool softener or over the counter laxative if needed. Difficult bowel movements may lead to straining and bleeding from the prostate. MEDICATIONS *You may resume your home medications unless instructed otherwise *Hold aspirin, ibuprofen, Coumadin (warfarin) and other blood thinners for about two days or until there is no active bleeding unless otherwise instructed *Finish the antibiotic which you have already started Things to watch for which would require an Emergency Room visit or call 911: (this is not a complete list) *Persistent or heavy bleeding or blood clots from the rectum or in the urine *Inability to urinate *Fever over 101.5 degrees Fahrenheit, with or without chills *Severe drug reactions with itching, hives, or rash *Tenderness or swelling of the calves, chest pain, or shortness of breath Please call the office to arrange for your post-operative appointment within two weeks ([phone] or [phone])[facility]10-23-2025 NoteProgress Note-Physician Patient: GWEN MCBRIDE Age: 65 years Sex: Male : 1960 Associated Diagnoses: None Author: Jorge Mednosa MD Preoperative Information Anesthesia Preop Info: Time patient last ate or drank 06/26/2025 00:00:00. Anesthesia history: Patient history: None. Family history+: None. Informed consent: Signed by patient. Including risks, benefits, and alternatives related to the: Anesthetic plan. Re-evaluation prior to induction: Jorge Mendosa MD. Review of Systems Eye Ear/Nose/Mouth/Throat Respiratory: No shortness of breath, No cough. Cardiovascular: Negative, No chest pain. Gastrointestinal: No heartburn. Musculoskeletal Neurologic Health Status Allergies: Allergic Reactions (Selected) No Known Medication Allergies, Allergies (1) Active Severity Reaction No Known Medication Allergies None Documented Current medications: (Selected) Prescriptions Prescribed Cipro 500 mg Tab: 500 mg = 1 tab(s), Oral, BID, start 3 days prior to procedure, # 14 tab(s), Refills(s) 0, Pharmacy: [facility]/pharmacy #[id number] tamsulosin 0.4 mg Cap: 0.4 mg = 1 cap(s), Oral, Daily, Monitor for lightheadedness or dizziness., #30 cap(s), Refills(s) 11, Pharmacy: [facility]/pharmacy #[id number] Documented Medications Documented aspirin 81 mg oral capsule: mg cap(s), Oral, q24hr, Refills(s) 0 atorvastatin 10 mg Tab: 10 mg = 1 tab(s), Oral, Daily, Refills(s) 0 hydrochlorothiazide-lisinopril 25 mg-20 mg Tab: 1 tab(s), Oral, Daily, Refill(s) 0 lisinopril 10 mg Tab: 10 mg = 1 tab(s), Oral, Daily, Refills(s) 0, Home Medications (6) Active aspirin 81 mg oral capsule , Oral, q24hr atorvastatin 10 mg Tab 10 mg = 1 tab(s), Oral, Daily Cipro 500 mg Tab 500 mg = 1 tab(s), Oral, BID hydrochlorothiazide-lisinopril 25 mg-20 mg Tab 1 tab(s), Oral, Daily lisinopril 10 mg Tab 10 mg = 1 tab(s), Oral, Daily tamsulosin 0.4 mg Cap 0.4 mg = 1 cap(s), Oral, Daily , No qualifying data available Problem list: All Problems Benign hypertension (high blood pressure) / SNOMED CT 66342037 / Confirmed BPH with urinary obstruction / SNOMED CT 0340932756 / Confirmed Elevated PSA / SNOMED CT 8240101672 / Confirmed Essential hypertension / SNOMED CT 93124075 / Confirmed Gastro-esophageal reflux disease with esophagitis / SNOMED CT 089667669 / Confirmed Hypercholesterolemia / SNOMED CT 14670413 / Confirmed Hyperlipidemia (high cholesterol) / SNOMED CT 19450102 / Confirmed, Active Problems (7) Benign hypertension (high blood pressure) BPH with urinary obstruction Elevated PSA Essential hypertension Gastro-esophageal reflux disease with esophagitis Hypercholesterolemia Hyperlipidemia (high cholesterol) Histories Past Medical History: No active or resolved past medical history items have been selected or recorded. Family History: Esophageal cancer Brother Stroke Mother Hypertension Mother Hyperlipidemia Mother Procedure history: Tonsillectomy and adenoidectomy (Removal of tonsils and adenoids) ([id number]) on 01/02/1968 at 7 Years. Social History Social & Psychosocial Habits Tobacco 02/12/2025 Tobacco Use: Former smoker, quit more Smokeless tobacco use: Never Type: Cigarettes . Physical Examination No qualifying data available Airway: Mallampati classification: II (soft palate, fauces, uvula visible). Respiratory: Lungs are clear to auscultation, Respirations are non-labored, adequate air exchange. Cardiovascular: Regular rhythm, No murmur, 2+ bilateral radial pulses, no peripheral edema, no JVD. Review / Management Results review: No qualifying data available . Plan [place] [employer]esthesi[employer] (ASA) physical status classification: Class II. Anesthetic Preoperative Plan: Anesthesia General.[facility] Comment on above:Result Comment: Electronically Signed By: Deondre VU, Jorge Carbajal\.br\Date and Time Signed: 06/26/25 10:37 ZUG07-15-2031 NoteHistory and Physical Patient: GWEN MCBRIDE Age: 65 years Sex: Male : 1960 Associated Diagnoses: None Author: Reed ARANA MD Chief Complaint This patient presents for MRI guided fusion biopsy of the prostate secondary to a progressive increase in the PSA over time up to 4.57. He had an MRI of the prostate demonstrating an 85 g gland with an abnormality measuring about 1 cm in the right mid gland. The patient presents for recommended transrectal ultrasound guided fusion biopsy of the prostate with its inherent risks. Review of Systems Constitutional: Negative. Eye Ear/Nose/Mouth/Throat Respiratory: Negative. Cardiovascular: Negative. Gastrointestinal: Negative. Genitourinary Hematology/Lymphatics: Negative. Endocrine: Negative. Immunologic Musculoskeletal Integumentary Neurologic: Negative. Psychiatric Health Status Allergies: Allergic Reactions (Selected) No Known Medication Allergies Current medications: (Selected) Inpatient Medications Ordered Lactated Ringers IV Dalia 1000 mL 1,000 mL: 1,000 mL, IV, 150 mL/hr, Routine, Start date 06/26/25 9:15:00 EDT, 6.7 hour(s), Total volume (mL): 1,000, 111 kg, 2.37, m2 cefazolin additive + Sodium Chloride 0.9% intravenous solution 50 mL: 2 gm = 1 EA, IV Piggyback, Once, Stop date 06/26/25 10:00:00 EDT, Routine, Start date 06/26/25 10:00:00 EDT, 100 mL/hr, Infuse over 30 minute(s), HOLD if patient has history of anaphylactic allergic reaction to Penicillin., 06/26/25 9:15:00 EDT gentamicin additive + Sodium Chloride 0.9% intravenous solution 50 mL: 80 mg = 50 mL, IV Piggyback,Once, Stop date 06/26/25 10:00:00 EDT, Routine, Start date 06/26/25 10:00:00 EDT, 100 mL/hr, Infuseover 30 minute(s), 06/26/25 9:15:00 EDT Prescriptions Prescribed Cipro 500 mg Tab: 500 mg = 1 tab(s), Oral, BID, start 3 days prior to procedure, # 14 tab(s), Refills(s) 0, Pharmacy: [facility]/pharmacy #[id number] tamsulosin 0.4 mg Cap: 0.4 mg = 1 cap(s), Oral, Daily, Monitor for lightheadedness or dizziness., #30 cap(s), Refills(s) 11, Pharmacy: [facility]/pharmacy #[id number] Documented Medications Documented aspirin 81 mg oral capsule: mg cap(s), Oral, q24hr, Refills(s) 0 atorvastatin 10 mg Tab: 10 mg = 1 tab(s), Oral, Daily, Refills(s) 0 hydrochlorothiazide-lisinopril 25 mg-20 mg Tab: 1 tab(s), Oral, Daily, Refill(s) 0 lisinopril 10 mg Tab: 10 mg = 1 tab(s), Oral, Daily, Refills(s) 0, Home Medications (6) Active aspirin 81 mg oral capsule , Oral, q24hr atorvastatin 10 mg Tab 10 mg = 1 tab(s), Oral, Daily Cipro 500 mg Tab 500 mg = 1 tab(s), Oral, BID hydrochlorothiazide-lisinopril 25 mg-20 mg Tab 1 tab(s), Oral, Daily lisinopril 10 mg Tab 10 mg = 1 tab(s), Oral, Daily tamsulosin 0.4 mg Cap 0.4 mg = 1 cap(s), Oral, Daily Problem list: All Problems Elevated PSA / SNOMED CT 4732163089 / Confirmed Hyperlipidemia (high cholesterol) / SNOMED CT 64581776 / Confirmed Benign hypertension (high blood pressure) / SNOMED CT 77189656 / Confirmed Hypercholesterolemia / SNOMED CT 94224165 / Confirmed Gastro-esophageal reflux disease with esophagitis / SNOMED CT 168638364 / Confirmed Essential hypertension / SNOMED CT 17573953 / Confirmed BPH with urinary obstruction / SNOMED CT 5788210006 / Confirmed, Active Problems (7) Benign hypertension (high blood pressure) BPH with urinary obstruction Elevated PSA Essential hypertension Gastro-esophageal reflux disease with esophagitis Hypercholesterolemia Hyperlipidemia (high cholesterol) Histories Past Medical History: No active or resolved past medical history items have been selected or recorded. Family History: Esophageal cancer Brother Stroke Mother Hypertension Mother Hyperlipidemia Mother Procedure history: Tonsillectomy and adenoidectomy (Removal of tonsils and adenoids) ([id number]) on 01/02/1968 at 7 Years. Social History Social & Psychosocial Habits Tobacco 02/12/2025 Tobacco Use: Former smoker, quit more Smokeless tobacco use: Never Type: Cigarettes . Physical Examination General: Alert and oriented, No acute distress. Neck: Supple, Non-tender. Respiratory: Lungs are clear to auscultation, Respirations are non-labored, Symmetrical chest wall expansion. Cardiovascular: Normal rate, Regular rhythm. Gastrointestinal: Soft, Non-tender, Non-distended. Vital signs as documented in flowsheet Genitourinary: No inguinal tenderness, Support. Kidney: Bilateral, Within normal limits. Bladder: Within normal limits. Lymphatics: No lymphadenopathy. Musculoskeletal Normal range of motion. No tenderness. Integumentary: Warm, Dry. Neurologic: Alert, Oriented. Psychiatric: Cooperative, Appropriate mood & affect. Review / Management Results review: Interpretation: Reviewed lab results when ordered. Radiology results: Reviewed radiology report(s) when ordered. ECG interpretation: Reviewed EKG report when ordered. Documentation reviewed (more content not included)...[facility] Comment on above:Result Comment: Electronically Signed By: Reed ARANA MD.shyma\Date and Time Signed: 06/26/25 07:12 [id number] Hospital Discharge instructions Patient Education 02/12/2025 14:00:46 Benign Prostatic Hyperplasia Benign Prostatic Hyperplasia Benign prostatic hyperplasia (BPH) is an enlarged prostate gland that is caused by the normal agingprocess. The prostate may get bigger as a man gets older. The condition is not caused by cancer. The prostate is a walnut-sized gland that is involved in the production of semen. It is located in front of the rectum and below the bladder. The bladder stores urine. The urethra carries stored urine ou t of the body. An enlarged prostate can press on the urethra. This can make it harder to pass urine. The buildup of urine in the bladder can cause infection. Back pressure and infection may progress to bladder damage and kidney (renal) failure. What are the causes? This condition is part of the normal aging process. However, not all men develop problems from thiscondition. If the prostate enlarges away from the urethra, urine flow will not be blocked. If it enlarges toward the urethra and compresses it, there will be problems passing urine. What increases the risk? This condition is more likely to develop in men older than 50 years. What are the signs or symptoms? Symptoms of this condition include: Getting up often during the night to urinate. Needing to urinate frequently during the day. Difficulty starting urine flow. Decrease in size and strength of your urine stream. Leaking (dribbling) after urinating. Inability to pass urine. This needs immediate treatment. Inability to completely empty your bladder. Pain when you pass urine. This is more common if there is also an infection. Urinary tract infection (UTI). How is this diagnosed? This condition is diagnosed based on your medical history, a physical exam, and your symptoms. Tests will also be done, such as: A post-void bladder scan. This measures any amount of urine that may remain in your bladder after you finish urinating. A digital rectal exam. In a rectal exam, your health care provider checks your prostate by putting a lubricated, gloved finger into your rectum to feel the back of your prostate gland. This exam detects the size of your gland and any abnormal lumps or growths. An exam of your urine (urinalysis). A prostate specific antigen (PSA) screening. This is a blood test used to screen for prostate cancer. An ultrasound. This test uses sound waves to electronically produce a picture of your prostate gland. Your health care provider may refer you to a specialist in kidney and prostate diseases (urologist). How is this treated? Once symptoms begin, your health care provider will monitor your condition (active surveillance or watchful waiting). Treatment for this condition will depend on the severity of your condition. Treatment may include: Observation and yearly exams. This may be the only treatment needed if your condition and symptoms are mild. Medicines to relieve your symptoms, including: ?Medicines to shrink the prostate. ?Medicines to relax the muscle of the prostate. Surgery in severe cases. Surgery may include: ?Prostatectomy. In this procedure, the prostate tissue is removed completely through an open incision or with a laparoscope or robotics. ?Transurethral resection of the prostate (TURP). In this procedure, a tool is inserted through the opening at the tip of the penis (urethra). It is used to cut away tissue of the inner core of the prostate. The pieces are removed through the same opening of the penis. This removes the blockage. ?Transurethral incision (TUIP). In this procedure, small cuts are made in the prostate. This lessens the prostate's pressure on the urethra. ?Transurethral microwave thermotherapy (TUMT). This procedure uses microwaves to create heat. The heat destroys and removes a small amount of prostate tissue. ?Transurethral needle ablation (TUNA). This procedure uses radio frequencies to destroy and remove a small amount of prostate tissue. ?Interstitial laser coagulation (ILC). This procedure uses a laser to destroy and remove a small amount of prostate tissue. ?Transurethral electrovaporization (TUVP). This procedure uses electrodes to destroy and remove a small amount of prostate tissue. ?Prostatic urethral lift. This procedure inserts an implant to push the lobes of the prostate away from the urethra. Follow these instructions at home: Take [id number] and prescription medicines only as told by your health care provider. Monitor your symptoms for any changes. Contact your health care provider with any changes. Avoid drinking large amounts of liquid before going to bed or out in public. Avoid or reduce how much caffeine or alcohol you drink. Give yourself time when you urinate. Keep all follow-up visits. This is important. Contact a health care provider if: You have unexplained back pain. Your symptoms do not get better with treatment. You develop side effects from the medicine you are taking. Your urine becomes very dark or has a bad smell. Your lower abdomen becomes distended and you have trouble passing urine. Get help right away if: You have a fever or chills. You suddenly cannot urinate. You feel light-headed or very dizzy, or you faint. There are large amounts of blood or clots in your urine. Your urinary problems become hard to manage. You develop moderate to severe low back or flank pain. The flank is the side of your body between the ribs and the hip. These symptoms may be an emergency. Get help right away. Call 911. Do not wait to see if the symptoms will go away. Do not drive yourself to the hospital. Summary Benign prostatic hyperplasia (BPH) is an enlarged prostate that is caused by the normal aging process. It is not caused by cancer. An enlarged prostate can press on the urethra. This can make it hard to pass urine. This condition is more likely to develop in men older than 50 years. Get help right away if you suddenly cannot urinate. This information is not intended to replace advice given to you by your health care provider. Make sure you discuss any questions you have with your health care provider. Document Revised: 03/09/2022 Document Reviewed: 03/09/2022 [employer] Patient Education 2023 [employer]. 02/12/2025 14:00:45 Prostate Cancer Screening Prostate Cancer Screening Prostate cancer screening is testing that is done to check for the presence of prostate cancer in men. The prostate gland is a walnut-sized gland that is located below the bladder and in front of therectum in males. The function of the prostate is to add fluid to semen during ejaculation. Prostatecancer is one of the most common types of cancer in men. Who should have prostate cancer screening? Screening recommendations vary based on age and other risk factors, as well as between the professional organizations who make the recommendations. In general, screening is recommended if: You are age 50 to 70 and have an average risk for prostate cancer. You should talk with your healthcare provider about your need for screening and how often screening should be done. Because most prostate cancers are slow growing and will not cause , screening in this age group is generally reserved for men who have a 10- to 15-year life expectancy. You are younger than age 50, and you have these risk factors: ?Having a father, brother, or uncle who has been diagnosed with prostate cancer. The risk is higherif your family member's cancer occurred at an early age or if you have multiple family members withprostate cancer at an early age. ?Being a male who is Black or is of [place] or sub-Saharan descent. In general, screening is not recommended if: You are younger than age 40. You are between the ages of 40 and 49 and you have no risk factors. You are 70 years of age or older. At this age, the risks that screening can cause are greater than the benefits that it may provide. If you are at high risk for prostate cancer, your health care provider may recommend that you have screenings more often or that you start screening at a younger age. How is screening for prostate cancer done? The recommended prostate cancer screening test is a blood test called the prostate-specific antigen(PSA) test. PSA is a protein that is made in the prostate. As you age, your prostate naturally produces more PSA. Abnormally high PSA levels may be caused by: Prostate cancer. An enlarged prostate that is not caused by cancer (benign prostatic hyperplasia, or BPH). This condition is very common in older men. A prostate gland infection (prostatitis) or urinary tract infection. Certain medicines such as male hormones (like testosterone) or other medicines that raise testosterone levels. A rectal exam may be done as part of prostate cancer screening to help provide information about the size of your prostate gland. When a rectal exam is performed, it should be done after the PSA level is drawn to avoid any effect on the results. Depending on the PSA results, you may need more tests, such as: A physical exam to check the size of your prostate gland, if not done as part of screening. Blood and imaging tests. A procedure to remove tissue samples from your prostate gland for testing (biopsy). This is the only way to know for certain if you have prostate cancer. What are the benefits of prostate cancer screening? Screening can help to identify cancer at an early stage, before symptoms start and when the cancer can be treated more easily. There is a small chance that screening may lower your risk of dying from prostate cancer. The chance is small because prostate cancer is a slow-growing cancer, and most men with prostate cancer from a different cause. What are the risks of prostate cancer screening? The main risk of prostate cancer screening is diagnosing and treating prostate cancer that would never have caused any symptoms or problems. This is called overdiagnosisand overtreatment. PSA screening cannot tell you if your PSA is high due to cancer or a different cause. A prostate biopsy is the only procedure to diagnose prostate cancer. Even the results of a biopsy may not tell you if your cancer needs to be treated. Slow-growing prostate cancer may not need any treatment other than monitoring, so diagnosing and treating it may cause unnecessary stress or other side effects. Questions to ask your health care provider When should I start prostate cancer screening? What is my risk for prostate cancer? How often do I need screening? What type of screening tests do I need? How do I get my test results? What do my results mean? Do I need treatment? Where to find more information The [place] [employer]: www.cancer.org [place] [employer]: www.auanet.org Contact a health care provider if: You have difficulty urinating. You have pain when you urinate or ejaculate. You have blood in your urine or semen. You have pain in your back or in the area of your prostate. Summary Prostate cancer is a common type of cancer in men. The prostate gland is located below the bladder and in front of the rectum. This gland adds fluid to semen during ejaculation. Prostate cancer screening may identify cancer at an early stage, when the cancer can be treated more easily and is less likely to have spread to other areas of the body. The prostate-specific antigen (PSA) test is the recommended screening test for prostate cancer, butit has associated risks. Discuss the risks and benefits of prostate cancer screening with your health care provider. If you are age 70 or older, the risks that screening can cause are greater than the benefits that it may provide. This information is not intended to replace advice given to you by your health care provider. Make sure you discuss any questions you have with your health care provider. Document Revised: 02/14/2022 Document Reviewed: 02/14/2022 [employer] Patient Education 2023 [employer]. Follow Up Care 01/03/2025 13:56:40 With:SUMIT VU, Reed Amaya, URL Address: [address] [place] [address] [address] [place] [address]- When: Unknown [facility] 06-11-2025 NotePatient Education Oncology Prostate Cancer Screening Prostate cancer screening is testing that is done to check for the presence of prostate cancer in men. The prostate gland is a walnut-sized gland that is located below the bladder and in front of therectum in males. The function of the prostate is to add fluid to semen during ejaculation. Prostatecancer is one of the most common types of cancer in men. Who should have prostate cancer screening? Screening recommendations vary based on age and other risk factors, as well as between the professional organizations who make the recommendations. In general, screening is recommended if: ??? You are age 50 to 70 and have an average risk for prostate cancer. You should talk with your health care provider about your need for screening and how often screening should be done. Because most prostate cancers are slow growing and will not cause , screening in this age group is generally reserved for men who have a 10- to 15-year life expectancy. ??? You are younger than age 50, and you have these risk factors: ? Having a father, brother, or uncle who has been diagnosed with prostate cancer. The risk is higher if your family member's cancer occurred at an early age or if you have multiple family members with prostate cancer at an early age. ? Being a male who is Black or is of [place]it or sub-Saharan descent. In general, screening is not recommended if: ??? You are younger than age 40. ??? You are between the ages of 40 and 49 and you have no risk factors. ??? You are 70 years of age or older. At this age, the risks that screening can cause are greater than the benefits that it may provide. If you are at high risk for prostate cancer, your health care provider may recommend that you have screenings more often or that you start screening at a younger age. How is screening for prostate cancer done? The recommended prostate cancer screening test is a blood test called the prostate-specific antigen(PSA) test. PSA is a protein that is made in the prostate. As you age, your prostate naturally produces more PSA. Abnormally high PSA levels may be caused by: ??? Prostate cancer. ??? An enlarged prostate that is not caused by cancer (benign prostatic hyperplasia, or BPH). This condition is very common in older men. ??? A prostate gland infection (prostatitis) or urinary tract infection. ??? Certain medicines such as male hormones (like testosterone) or other medicines that raise testosterone levels. A rectal exam may be done as part of prostate cancer screening to help provide information about the size of your prostate gland. When a rectal exam is performed, it should be done after the PSA level is drawn to avoid any effect on the results. Depending on the PSA results, you may need more tests, such as: ??? A physical exam to check the size of your prostate gland, if not done as part of screening. ??? Blood and imaging tests. ??? A procedure to remove tissue samples from your prostate gland for testing (biopsy). This is theonly way to know for certain if you have prostate cancer. What are the benefits of prostate cancer screening? Screening can help to identify cancer at an early stage, before symptoms start and when the cancer can be treated more easily. ??? There is a small chance that screening may lower your risk of dying from prostate cancer. The chance is small because prostate cancer is a slow-growing cancer, and most men with prostate cancer from a different cause. What are the risks of prostate cancer screening? The main risk of prostate cancer screening is diagnosing and treating prostate cancer that would never have caused any symptoms or problems. This is called overdiagnosisand overtreatment. PSA screening cannot tell you if your PSA is high due to cancer or a different cause. A prostate biopsy is the only procedure to diagnose prostate cancer. Even the results of a biopsy may not tell you if your cancer needs to be treated. Slow-growing prostate cancer may not need any treatment other than monitoring, so diagnosing and treating it may cause unnecessary stress or other side effects. Questions to ask your health care provider ??? When should I start prostate cancer screening? What is my risk for prostate cancer? How often do I need screening? What type of screening tests do I need? How do I get my test results? What do my results mean? Do I need treatment? Where to find more information ??? The [place] [employer]: www.cancer.org ??? [place] [employer]: www.auanet.org Contact a health care provider if: ??? You have difficulty urinating. ??? You have pain when you urinate or ejaculate. ??? You have blood in your urine or semen. ??? You have pain in your back or in the area of your prostate. Summary ??? Prostate cancer is a common type of cancer in men. The prostate gland (more content not included)...[facility]10-27-2023 Evaluation note* Encounter Date Diagnosis Assessment Notes Treatment Notes Treatment Clinical Notes Jun, Wellness examination (ICD-10 - Z 00.00) Healthy diet and exercise. Reviewed age-appropriate preventive testing recommended. Jun,rimary hypertension (ICD-10 - I10)This patient is instructed to consume a healthy, low-fat, low-salt diet. They are also encouraged to continue exercise to achieve/maintain a normal BMI. Patient is instructed on home BP measurements: - rest for 5 minutes w/o talking- positioned w/ feeton floor and arm supported- average best 2/3 readings w/ goal < 135/85 Call w/ update Jun,Elevated cholesterol (ICD-10 - E78.00)Instructed on diet and exercise with continued statin therapy.Discussed the beneficial effects of lo wering cholesterol in reducing the risk for cerebrovascular and cardiovascular disease. Jun,IFG (impaired fasting glucose) (ICD-10 - R73.01)Healthy diet and exercise Check A1C yearly Jun,astroesophageal reflux disease with esophagitis without hemorrhage (ICD-10 - K21.00)Diet instructions: Smaller portions, avoid eating and laying flat, avoid eating or drinking prior to bedtime. Weight loss. Jun,enign prostatic hyperplasia with lower urinary tract symptoms (ICD- 10 - N40.1)Symptoms tolerable Jun,Hesitancy of micturition (ICD-10 - R39.11) Jun,hronic venous insufficiency (ICD-10 - I87.2)Avoid salt and elevate lower extremities, support stockings, inspect legs and feet daily for blisters and ulcerations. Jun,Screening PSA (prostate specific antigen) (ICD-10 - Z12.5) Jun,olon cancer screening (ICD-10 - Z12.11) [employer] Other 04-28-2023 Evaluation note* Encounter Date Diagnosis Assessment Notes Treatment Notes Treatment Clinical Notes Dec, Primary hypertension (ICD-10 - I 10) This patient is instructed to consume a healthy, low-fat, low-salt diet. They are also encouraged to continue exercise to achieve/maintain a normal BMI. Dec,Elevated cholesterol (ICD-10 - E78.00)Instructed on diet and exercise with continued statin therapy.Discussed the beneficial effects of lo wering cholesterol in reducing the risk for cerebrovascular and cardiovascular disease. Dec,IFG (impaired fasting glucose) (ICD-10 - R73.01)Healthy diet, exercise and weight loss This patient [...] which are reviewed at the office visit. Dec,enign prostatic hyperplasia with lower urinary tract symptoms (ICD- 10 - N40.1)Discussed normal symptoms related to BPH - weak stream, hesitancy and nocturia - he denies hematuria or dysuria Offered treatment but he declines PSA and SONIDO in July 01Dec,astroesophageal reflux disease with esophagitis without hemorrhage (ICD-10 - K21.00)Diet instructions: Smaller portions, avoid eating and laying flat, avoid eating or drinking prior to bedtime. Weight loss. Dec,Strain of right rotator cuff capsule, initial encounter (ICD-10 - S46.011A)ROM exercises, ice/heat and Voltaren Gel Tylenol as needed. Discussed subacromial injection, PT and Orthopedic referrel: which I don't believe is needed at this time. Dec,Hesitancy of micturition (ICD-10 - R39.11) Dec,hronic venous insufficiency (ICD-10 - I87.2)Avoid salt and elevate lower extremities, support stockings, inspect legs and feet daily for blisters and ulcerations. [facility] [employer] Other Evaluation + Plan note No data available for this section [facility] Evaluation noteNo InformationNortGeisinger St. [facility] [employer] Other Evaluation note* Diagnosis Onset Date Resolution Status Benign prostatic hyperplasia with lower urinary tract symptoms acuteChronic venous insufficiencyacuteElevated cholesterolacuteGastroesophageal reflux disease with esophagitis without hemorrhageacuteIFG (impaired fasting glucose)acutePrimary hypertensionacute [facility] Work Phone: Evaluation note* Diagnosis Onset Date Resolution Status Benign prostatic hyperplasia with lower urinary tract symptoms acuteChronic venous insufficiencyacuteElevated cholesterolacuteGastroesophageal reflux disease with esophagitis without hemorrhageacuteIFG (impaired fasting glucose)acutePrimary hypertensionacuteWellness examinationacute [facility] Work Phone: Evaluation note* Diagnosis Onset Date Resolution Status Admit Date Chronic venous insufficiency acuteApril 2024 8:55amElevated cholesterolacuteApril 2024 8:55am Elevated PSAacuteApril 2024 8:55amGastroesophageal reflux disease with esophagitis without hemorrhageacuteApril 2024 8:55amIFG (impaired fasting glucose)acuteApril 2024 8:55amPrimary hypertensionacuteApril 2024 8:55am [facility] Work Phone: Evaluation noteNo assessment information available [facility] Work Phone: History general Narrative - Reported* Type Description Date Medical History Primary hypertension Medical HistoryElevated cholesterolMedical HistoryGastroesophageal reflux disease with esophagitis without hemorrhageMedical HistoryChronic venous insufficiencyMedical HistoryBenign prostatic hyperplasia with lower urinary tract symptomsMedical HistoryIFG (impaired fasting glucose)Medical History Gynecomastia [facility] [employer] Other History general Narrative - Reported* Type Description Date Medical History Primary hypertension Medical HistoryElevated cholesterolMedical HistoryGastroesophageal reflux disease with esophagitis without hemorrhageMedical HistoryChronic venous insufficiencyMedical HistoryBenign prostatic hyperplasia with lower urinary tract symptomsMedical HistoryIFG (impaired fasting glucose)Medical History GynecomastiaSurgical HistoryBOWEL RESECTIONSurgical HistoryLUMBAR SURGERY Surgical HistoryCOLONOSCOPYSurgical HistoryCARDIAC CATH, LEFT HEARTSurgical HistoryINSERTION, ICD, SINGEL CHAMBERHospitalization HistorySEE SURGICAL HX [facility] [employer] Other Progress note No data available for this section [facility] Reason for referral (narrative)No reason for referral information availableSelect [facility] Work Phone: Summary Purpose Family History Relationship Condition Age at Onset Recorded Date/T judy brother Myocardial infarction Unknown fatherDeceasedUnknownHeart diseaseUnknownNot SpecifiedHypertensionUnknown DeceasedUnknown Relationship Condition Age at Onset Recorded Date/T judy brother Myocardial infarction Unknown fatherDeceasedUnknownHeart diseaseUnknownmotherHypertensionUnknownDeceased Unknown Advance Directives Advance Directive Response Recorded [...] (impaired fasting glucose) Primary hypertension Wellness examination Chief Complaint Admit Date 6 month f/u December 31, 2024 8:5 5am Reason for Visit Admit Date Chronic venous insufficiency December 31, 2024 8:55am Elevated cholesterol December 31, 2024 8: 55am Elevated PSA December 31, 2024 8:5 5am Gastroesophageal reflux dise ase with esophagitis without hemorrhage December 31, 2024 8:55am IFG (impaired fasting glucose) December 8:55am Primary hypertension December 31, 2024 8: 55am Chief Complaint Admit Date R97.20 May 28, 2025 1:46pm Additional Source Comments (unrecognized sect ion and content) No Status Records FoundNo Status Records FoundNo Status Records FoundNo Status Records FoundNo Status Records FoundNo Status Records FoundNo Status Records FoundNo Status Records FoundNo Status Records FoundNo Status Records FoundNo Status Records Found INFORMATION SOURCE (unrecogn ized section and content) DATE CREATED AUTHOR 06/30/2022 [facility] DATE CREATED AUTHOR AUTHOR'S ORGANIZ ATION 06/07/2025 [facility] DATE CREATED AUTHOR AUTHOR'S ORGANIZ ATION 06/20/2025 [facility] DATE CREATED AUTHOR AUTHOR'S ORGANIZ ATION 07/02/2025 [facility] DATE CREATED AUTHOR AUTHOR'S ORGANIZ ATION 07/04/2025 [facility] DATE CREATED AUTHOR AUTHOR'S ORGANIZ ATION 07/16/2025 [facility] REASON FOR VISIT (unrecogniz ed section and content) 6 MONTH FOLLOW UPWellnessRes [facility] Care Teams (unrecognized sec tion and content) Personnel Name: JOSE DAY DO Address: [address] [place] [address] Telecom: Team Status: Active Member Role Status Dates Jose Day DO Primary Care Provider Active Team Status: Inactive Member Role Status Dates Jose Day DO Primary Care Provide r, Attending Provider Active Start: December 31, 2024 End: December 31, 2024 Team Status: Active Member Role Status Dates Jose Day DO Primary Care Provide r, Attending Provider Active Start: June 26, 2024 Team Status: Inactive Member Role Status Dates Jose Day DO Primary Care Provide r, Attending Provider Active Start: July 01, 2024 End: July 01, 2024 Team Status: Inactive Member Role Status Dates Jose Day DO Primary Care Provide r, Attending Provider Active Start: December 29, 2023 End: December 29, 2023 Team Status: Inactive Member Role Status Dates Jose Day DO Primary Care Provider Active Start: May 28, 2025 End: May 28, 2025Matthew Rogers ProviderActiveStart: May 28, 2025 End: May 28, 2025 Goals (unrecognized section and content) Goals may [...] BE BASED ON THE PRIMARY CLINICAL RECORDS. [facility] [email or web address] provides no warranty or guarantee of the accuracy or completeness of information in this document.
[2025-07-21 08:40] LABS: Hematocrit 41.8 % (42.0-54.0); Hemoglobin 14.6 g/dL (14.0-18.0); Immature Granulocytes Abs Auto 0.03 10^3/uL (0.00-0.03); Immature Granulocytes Pct Auto 0.4 % (0.0-0.5); Lymphocytes Absolute Auto 2.1 10^3/uL (1.2-3.8); Mean Corpuscular HGB Conc 34.9 g/dL (29.9-35.2); Mean Corpuscular Hemoglobin 30.7 pg (25.9-34.0); Mean Corpuscular Volume 88.0 fL (80.0-94.0); Platelet Count 202 10^3/uL (150-450); Red Blood Count 4.75 10^6/uL (4.70-6.10); White Blood Count 8.3 10^3/uL (4.0-11.0)
[2025-07-21 10:06] LABS: Alanine Aminotransferase 39 U/L (16-63); Albumin Globulin Ratio 1.1; Albumin Level 3.7 g/dL (3.4-5.0); Alkaline Phosphatase 73 U/L (46-116); Anion Gap 10.8; Aspartate Amino Transferase 15 U/L (15-37); Blood Urea Nitrogen 13.0 mg/dL (7.0-18.0); Calcium 9.2 mg/dL (8.5-10.1); Carbon Dioxide 30.4 mmol/L (21.0-32.0); Chloride 104 mmol/L (98-107); Cholesterol 153 mg/dL (<=200); Estimated GFR (African America >60 (>=60 mL/min/1.73m^2); Estimated GFR (Non-African Ame >60 (>=60 mL/min/1.73m^2); Globulin 3.4 g/dL; Glucose 113 mg/dL (74-106); HDL Cholesterol 41 mg/dL (40-60); Potassium 3.2 mmol/L (3.5-5.1); Sodium 142 mmol/L (136-145); Total Protein 7.1 g/dL (6.4-8.2); Triglycerides 265 mg/dL (<=150); VLDL CHOLESTEROL 53.0 mg/dL
== END 2025-07-21 08:03 | disposition home or self-care (01) ==
PROVIDERS: PCP Internal Medicine; Visit Provider Internal Medicine
DX: E78.00 Pure hypercholesterolemia, unspecified (principal); R73.01 Impaired fasting glucose; I10 Essential (primary) hypertension
CPT/HCPCS: 36415; 80053; 80061; 83036; 85025